=== PATIENT | male | born 1935 | race Caucasian/White ===

== ENCOUNTER → 2020-05-30 08:47 | Outpatient (BNVA) | payer MEDICARE, SELFPAY | PROVIDERS: PCP Family Medicine; Referring Provider Family Medicine; Visit Provider Internal Medicine Cardiovascular Disease | DX: Z76.89 Persons encountering health services in other specified circumstances (principal) ==

== ENCOUNTER 2020-06-28 06:10 | Outpatient (REF) | payer MEDICARE, SELFPAY ==
--- NOTE | 2020-06-28 06:17 | XR_ITS ---
EXAMINATION: CHEST 2 VIEWS CLINICAL INFORMATION: COPD. COMPARISON: 05/25/2019. TECHNIQUE: PA and lateral views of the chest were obtained. FINDINGS: The cardiac silhouette is not enlarged. The mediastinal and hilar contours are unremarkable. There are no pneumothoraces. There is wanting of both posterior costophrenic angles. There are no consolidations. The lungs are hyperinflated. The osseous structures are stable. XR/XR chest 2V IMPRESSION: No consolidations. Lung hyperinflation. Blunting of both posterior costophrenic angles either contact center representative of small pleural effusions and/or pleural thickening.
== END 2020-06-28 06:11 | disposition home or self-care (01) ==
LOC: HO.XRAY 06:10
PROVIDERS: Visit Provider Family Medicine
DX: J44.9 Chronic obstructive pulmonary disease, unspecified (principal); R06.02 Shortness of breath; C43.9 Malignant melanoma of skin, unspecified
CPT/HCPCS: 71046

== ENCOUNTER 2020-10-04 06:17 | Outpatient (REF) | payer MEDICARE, SELFPAY ==
[2020-10-04 06:58] LABS: MANUAL DIFF FLAG NO
[2020-10-04 07:05] LABS: Basophils Percent Auto 0.5 % (0-2); Eosinophils Absolute Auto 0.3 X10*3/uL (0.0-0.4); Hematocrit 34.9 % (42-52); Hemoglobin 11.4 g/dl (14.0-18.0); Imm Gran Abs Auto 0.04 X10*3/uL (0.00-0.03); Imm Gran Pct Auto 0.5 % (0.0-0.4); Lymphocytes Absolute Auto 1.6 X10*3/uL (1.2-4.9); Lymphocytes Percent Auto 18.6 % (20-40); Mean Corpuscular HGB Conc 32.7 g/dl (31.0-36.0); Mean Corpuscular Hemoglobin 31.1 pg (27.0-33.0); Mean Corpuscular Volume 95.1 fL (80-98); Mean Platelet Volume 10.8 fL (9.4-12.4); Monocytes Percent Auto 11.2 % (2-11); Neutrophils Absolute Auto 5.7 X10*3/uL (2.0-8.3); Neutrophils Percent Auto 66.2 % (45-73); Platelet Count 173 X10*3/uL (160-400); Red Blood Count 3.67 X10*6/uL (4.60-5.80); Red Cell Distribution Width 12.3 % (11.0-16.0); White Blood Count 8.6 X10*3/uL (4.8-10.8)
[2020-10-04 07:50] LABS: Alanine Aminotransferase 11 U/L (0-40); Anion Gap 11 (12-20); Blood Urea Nitrogen 33 mg/dL (9-16); Carbon Dioxide 29 mmol/L (22-29); Chloride 104 mmol/L (96-108); Estimated Glomerular Filt Rate 48; Potassium 4.7 mmol/L (3.3-5.1); Sodium 139 mmol/L (135-145)
== END 2020-10-04 06:18 | disposition home or self-care (01) ==
LOC: HO.LAB 06:17
PROVIDERS: Visit Provider Family Medicine
DX: I10 Essential (primary) hypertension (principal); E78.00 Pure hypercholesterolemia, unspecified; D64.9 Anemia, unspecified; Z79.899 Other long term (current) drug therapy
CPT/HCPCS: 36415; 80051; 82550; 82565; 84460; 84520; 85025

== ENCOUNTER 2020-12-19 09:05 | Outpatient (REF) | payer MEDICARE, SELFPAY ==
[2020-12-19 09:33] LABS: MANUAL DIFF FLAG NO
[2020-12-19 09:36] LABS: Basophils Percent Auto 0.5 % (0-2); Eosinophils Absolute Auto 0.3 X10*3/uL (0.0-0.4); Eosinophils Percent Auto 3.3 % (0-4); Hematocrit 36.3 % (42-52); Hemoglobin 11.8 g/dl (14.0-18.0); Imm Gran Abs Auto 0.02 X10*3/uL (0.00-0.03); Imm Gran Pct Auto 0.3 % (0.0-0.4); Lymphocytes Absolute Auto 1.7 X10*3/uL (1.2-4.9); Lymphocytes Percent Auto 21.1 % (20-40); Mean Corpuscular HGB Conc 32.5 g/dl (31.0-36.0); Mean Corpuscular Hemoglobin 30.7 pg (27.0-33.0); Mean Corpuscular Volume 94.5 fL (80-98); Mean Platelet Volume 10.6 fL (9.4-12.4); Monocytes Absolute Auto 0.8 X10*3/uL (0.1-1.2); Monocytes Percent Auto 10.5 % (2-11); Neutrophils Absolute Auto 5.1 X10*3/uL (2.0-8.3); Neutrophils Percent Auto 64.3 % (45-73); Platelet Count 162 X10*3/uL (160-400); Red Blood Count 3.84 X10*6/uL (4.60-5.80); Red Cell Distribution Width 13.3 % (11.0-16.0); White Blood Count 7.9 X10*3/uL (4.8-10.8)
[2020-12-19 09:56] LABS: Iron 65 mcg/dL (45-160); Percent Iron Saturation 23 % (15-50); Total Iron Binding Capacity 277 mcg/dL (228-428); Unsaturated Iron Binding 212 ug/dL
[2020-12-19 10:26] LABS: Ferritin 358 ng/mL (20-250)
[2020-12-19 12:19] LABS: Vitamin B12 528 pg/mL (200-900)
== END 2020-12-19 09:06 | disposition home or self-care (01) ==
LOC: HO.LAB 09:05
PROVIDERS: PCP Family Medicine; Visit Provider Family Medicine
DX: D64.9 Anemia, unspecified (principal)
CPT/HCPCS: 36415; 82607; 82728; 82746; 83540; 85025

== ENCOUNTER 2021-01-26 06:40 | Outpatient (REF) | payer MEDICARE, SELFPAY ==
--- NOTE | ~2021-01-26 | XR_ITS ---
EXAMINATION: XR CHEST CLINICAL INFORMATION: Shortness of breath. COPD. COMPARISON: 06/28/2020 TECHNIQUE: Two views of the chest were obtained. FINDINGS: There is hyperinflation of the lungs. There is blunting of the costophrenic sulci and posterior sulcus which may be related to chronic pleural-parenchymal disease versus minimal effusions. Heart normal size. No evidence of pulmonary edema. There is some scarring noted within the right upper lobe. Degenerative marginal spurring is seen at multiple levels within the thoracic spine. XR/XR chest 2V IMPRESSION: COPD. No acute parenchymal disease. Stable appearance of the chest.
== END 2021-01-26 06:41 | disposition home or self-care (01) ==
LOC: HO.XRAY 06:40
PROVIDERS: Absent Provider Hospitalist; PCP Family Medicine; Visit Provider Family Medicine
DX: J44.9 Chronic obstructive pulmonary disease, unspecified (principal); R06.02 Shortness of breath
CPT/HCPCS: 71046

== ENCOUNTER → 2021-02-14 09:15 | Outpatient (BNVA) | payer MEDICARE, SELFPAY | PROVIDERS: PCP Family Medicine; Visit Provider Hospitalist | DX: J43.2 Centrilobular emphysema (principal); R09.02 Hypoxemia | CPT/HCPCS: 99202 ==

== ENCOUNTER 2021-02-22 12:56 | Outpatient (REF) | payer MEDICARE, SELFPAY ==
--- NOTE | ~2021-02-22 | CT_ITS ---
EXAMINATION: CT CHEST WITHOUT CONTRAST CLINICAL INFORMATION: Abnormal weight loss COMPARISON: Previous chest CT March 2011 previous chest x-rays most recent January 2021 TECHNIQUE: Multidetector volumetric CT imaging of the chest was done. Axial MIP volume rendering provided. Sagittal and coronal reformatted images were obtained. This CT examination was performed using dose optimization techniques as appropriate, variously including the following: *Automated exposure control *Adjustment of mA and/or kV according to patient size (this includes techniques or standardized protocols for targeted exams where dose is matched to indication/reason for exam; i.e. extremities or head) *Use of iterative reconstruction technique DLP: 238 mGy-cm FINDINGS: LUNGS: There is a 1 cm spiculated right upper lobe nodule axial image 20 series 3. There is a more inferior abnormal parenchymal density seen in the central right upper lobe with focal mild bronchiectasis and spicules. This measures 0.7 x 1.6 cm axial image 28 series. There is volume loss to the left upper lobe. There is a new paramediastinal left upper lobe masslike density adjacent to the aortic arch. This measures 3.5 x 5.8 cm axial image 29 series 3. This extends inferior medially in the anterior left upper lobe along the interhemispheric fissure. There is a cavitary left lower lobe nodule adjacent to the diaphragmatic pleural surface measuring 1.7 x 1.8 cm axial image 54 series 3. There is a 3 mm left lower lobe nodule axial image 9 series 3. There is a 6 mm peripheral or subpleural right lower lobe nodule axial image 55 series. There is scarring or subsegmental atelectasis seen in the lingula adjacent to the pleural fissure and the anterior segment of the right upper lobe adjacent to the minor fissure. MEDIASTINUM: There is evidence of atherosclerotic disease. The descending thoracic aorta is tortuous. There is focal dilatation of the descending thoracic aorta measuring maximum 3.5 cm. The ascending thoracic aorta and aortic arch are upper normal in size. The heart does not appear enlarged. There is coronary artery calcification. There is no pericardial effusion. There are small mediastinal lymph nodes. Largest lymph node is an AP window lymph node measuring 5 x 10 mm. PLEURA: There is a small left pleural effusion. AXILLA: No lymphadenopathy. UPPER ABDOMEN: There is ectasia of the upper abdominal aorta measuring 3 x 4 cm in AP and transverse dimension axial image 73 series 2. There are small bilateral renal calcifications questionable for vascular calcifications versus small stones. OSSEOUS STRUCTURES: There is increased thoracic kyphosis. There is an old mild T2 vertebral body compression fracture. There are old left lower rib fractures. CT/CT chest wo con IMPRESSION: 3.5 x 5.8 cm central left upper lobe lesion abutting the aortic arch worrisome for neoplasm. 1 cm spiculated right upper lobe nodule. More inferior 0.7 x 1.6 cm spiculated parenchymal density in the more central right upper lobe. 1.7 x 1.8 cm cavitary nodule along the left diaphragmatic pleural surface. These lesions are suspicious for neoplasm. Follow-up PET/CT scan or tissue sampling should be considered. If patient has symptoms to suggest infection, short-term follow-up chest CT following antibiotic therapy could be considered. Severe atherosclerotic disease. Areas of dilatation of the descending thoracic aorta and upper abdominal aorta.
== END 2021-02-22 12:57 | disposition home or self-care (01) ==
LOC: HO.CT 12:56
PROVIDERS: Visit Provider Hospitalist
DX: J43.2 Centrilobular emphysema (principal); R06.02 Shortness of breath; R63.4 Abnormal weight loss
CPT/HCPCS: 71250

== ENCOUNTER 2021-02-27 09:47 | Outpatient (REF) | payer MEDICARE, SELFPAY | END 2021-02-27 09:48 | disposition home or self-care (01) | LOC: HO.RESP 09:47 | PROVIDERS: Visit Provider Hospitalist | DX: Z13.89 Encounter for screening for other disorder (principal) | CPT/HCPCS: 99212 ==

== ENCOUNTER 2021-02-27 09:49 | Outpatient (REF) | payer MEDICARE, SELFPAY ==
--- NOTE | ~2021-02-27 | US_ITS ---
EXAMINATION: US VENOUS ULTRASOUND WITH DOPPLER LOWER EXTREMITY, LEFT CLINICAL INFORMATION: Swelling COMPARISON: None TECHNIQUE: Ultrasound of the deep veins is performed from the hip to the calf with compression sonography and color and pulse Doppler assessment. Spectral analysis with color-flow imaging is performed. FINDINGS: There is normal venous compression and respiratory variation and augmented flow. The visualized common femoral vein, superficial femoral vein, profunda femoral vein, popliteal vein, and the trifurcation region shows no evidence of deep venous thrombosis. There is no significant popliteal fossa cyst. US/US venous duplex LE LT IMPRESSION: No DVT demonstrated in the left lower extremity.
== END 2021-02-27 09:50 | disposition home or self-care (01) ==
LOC: HO.US 09:49
PROVIDERS: PCP Family Medicine; Visit Provider Hospitalist
DX: R60.0 Localized edema (principal); M79.89 Other specified soft tissue disorders
CPT/HCPCS: 93971; 99212

== ENCOUNTER 2021-03-06 08:57 | Outpatient (REF) | payer MEDICARE, SELFPAY ==
--- NOTE | ~2021-03-06 | PE_ITS ---
EXAMINATION: Fluorine-18 FDG PET/CT Scan CLINICAL INDICATION: Initial treatment management. Pulmonary nodules. PROCEDURE: 63 minutes following the intravenous administration of 16.8 mCi of fluorine 18 FDG, images from the base of the skull to the mid thighs were obtained using a combined PET/CT scanner with CT scan based attenuation correction. No oral contrast was administered. No intravenous contrast was administered. Transverse, coronal, sagittal, and volume reconstruction projections were obtained. The patient's blood glucose as determined by a finger stick, was 95 mg/dl immediately prior to injection. Total CT exam dose-length product 402.25 mGy-cm * These CT images were obtained using dose optimization techniques as appropriate, variously including the following: Automated exposure control * Adjustment of mA and/or kV according to patient size (this includes techniques or standardized protocols for targeted exams where dose is matched to indication/reason for exam; i.e. extremities or head) * Use of iterative reconstruction technique COMPARISON: No previous PET/CT scan is available for comparison. CT scan of the chest dated 02/23/2020 is available for comparison. FINDINGS: (Slice numbers described in this report are numbered superiorly to inferiorly with slice #1 in the head) NECK AND VISUALIZED HEAD: No foci of abnormal FDG activity are noted. The distribution of FDG activity is physiological. There is no cervical lymphadenopathy. THORAX: There is intense abnormal FDG activity associated with a medial pleural-based mass in the left upper lobe, SUVmax 15.8, slice 79/267. The FDG avid portion of this mass measures approximately 4.8 x 3.0 cm in largest transverse dimensions and 4.2 cm cephalocaudad. On the corresponding CT images there are spiculations including abutting the anterior pleura of the left upper lobe which extend slightly beyond the FDG avid component. There is a spiculated right upper lobe pulmonary nodule that shows mild FDG activity, SUV Max 6.3, slice 66/267 and measuring 1.2 x 0.9 cm in largest transverse dimensions. A third FDG avid focus is present posterolaterally in the left lower lobe showing SUV Max 3.9, slice 112/267 and measuring approximately 2.0 x 1.1 cm in largest transverse dimensions. No additional foci of abnormal FDG activity are present in the chest. There is an additional 0.5 cm pleural-based nodule posterolaterally in the right lower lobe corresponding to a 0.6 cm nodule at this site on the recent 02/22/[address] scan. Also visualized on that study was a 0.7 x 1.6 cm central right upper lobe opacity associated with some adjacent bronchiectasis, and on the CT images of the current study there is an irregular opacity that measures approximately 1.4 x 0.8 cm in this region and which shows no associated abnormal FDG activity. An additional 0.3 cm left lower lobe nodule visualized on 02/22/2021 is not apparent on these nondiagnostic CT images. No additional pulmonary nodules are visualized. There is no mediastinal, supraclavicular, or axillary lymphadenopathy. Trace left-sided pleural fluid is present but there is no right-sided pleural fluid, pericardial fluid, or pneumothorax. ABDOMEN AND PELVIS: No foci of abnormal FDG activity are present in the abdomen or pelvis. There is mild FDG activity throughout the gastrointestinal tract without a suspicious focal component. There is diverticulosis without evidence of diverticulitis. The hollow viscera are otherwise unremarkable. The liver, gallbladder, spleen comment kidneys, adrenal glands, and pancreas are unremarkable. There is no retroperitoneal, mesenteric, pelvic or inguinal lymphadenopathy. The prostate gland is enlarged measuring 6.1 cm in largest transverse dimension. The pelvic organs are otherwise unremarkable. MUSCULOSKELETAL: There are no foci of abnormal FDG activity present in the osseous structures. There are degenerative changes in the spine but no suspicious sclerotic or lytic lesions are visualized. A mild well compensated S-shaped thoracolumbar scoliosis is present with lumbar convexity to the right. There are compression deformities in the superior endplates of T9 and T10 as well as compression deformity in the T2 vertebral body WITH no associated abnormal FDG activity indicating these are all old. There are no suspicious sclerotic or lytic lesions visualized. VASCULAR: Diffuse vascular calcifications including dense coronary calcifications are noted. There is ectasia of the infrarenal abdominal aorta measuring 2.4 cm in largest AP diameter. PET/PET CT fusion skull to thigh IMPRESSION: 1. An intensely FDG avid medial pleural-based left upper lobe mass is present as described above and this is most likely malignant. The finding is most consistent with a primary pulmonary malignancy. 2. FDG avid right upper lobe and left lower lobe pulmonary nodules are present and these are also likely malignant. While these may represent metastases from the previously described medial left upper lobe mass, these are significantly less intensely FDG avid and could represent synchronous primary malignant lesions. 3. No additional abnormalities suspicious for other metastatic or malignant lesions are visualized. 4. Diffuse vascular calcifications including coronary are noted.
== END 2021-03-06 08:58 | disposition home or self-care (01) ==
LOC: HO.PET 08:57
PROVIDERS: PCP Family Medicine; Visit Provider Hospitalist
DX: Z13.89 Encounter for screening for other disorder (principal)

== ENCOUNTER → 2021-03-07 09:25 | Outpatient (BNVA) | payer MEDICARE, SELFPAY | PROVIDERS: PCP Family Medicine; Visit Provider Hospitalist | CPT/HCPCS: Q3014 ==

== ENCOUNTER 2021-03-17 11:09 | Observation (INO) | payer MEDICARE, SELFPAY ==
[2021-03-17] VITALS (11 sets, daily range): BP systolic 116–151; BP diastolic 56–76; PULSE 59–89; RESP 10–18; TEMP 36.4–36.9; O2SAT 94–97; BMI 23.4; BMI 20.5
--- NOTE | ~2021-03-17 | XR_ITS ---
EXAMINATION: XR CHEST CLINICAL INFORMATION: Shortness of breath COMPARISON: Portable chest radiograph from 03/17/2021. CXR from 01/26/2021. TECHNIQUE: 2 views of the chest were obtained. FINDINGS: No acute findings within the emphysematous lungs. Again noted is the right apical nodule projecting over the right anterior first rib, the infiltrative mass in the medial left upper lobe, and the elevated left diaphragm. No pneumothorax or pleural effusion. Multilevel osteophyte formation of the spine. XR/XR chest 2V IMPRESSION: No evidence of pneumothorax or other acute pathology compared to chest radiograph from 03/07/2021 at 11:20 AM.
--- NOTE | ~2021-03-17 | XR_ITS ---
EXAMINATION: XR CHEST CLINICAL INFORMATION: Chest pain COMPARISON: CXR from 01/26/2021 TECHNIQUE: Frontal view of the chest was obtained. FINDINGS: An irregular left upper lobe mass extends from the region of the hilum superiorly, directed toward the apex. There is associated volume loss of the left lung with elevated left diaphragm. A right upper lobe nodule projects over the right anterior first rib. A few linear opacities of atelectasis or scarring are present at the lung bases. There is an equivocal finding of a small left apical pneumothorax. The finding in question is probably artifactual. A skinfold or a line produced by overlying clothing might mimic the appearance of a pneumothorax. Recommend short interval CXR follow-up to ensure absence of any developing pneumothorax. Cardiac silhouette is normal size. The aorta is calcified. The visualized bones are intact. XR/XR chest 1V IMPRESSION: * Left upper lobe mass and right upper lobe nodule. * There is volume loss of the left lung; the left diaphragm is elevated. * No pulmonary edema or pleural effusion. * There is an equivocal/doubtful finding of a left apical pneumothorax. However, follow up recommended. The test result was discussed with Dr. Oneil at 12:18 PM on 03/17/2021 and it was ascertained that the content and the potential importance of the findings was understood at the time of the direct communication.
--- NOTE | ~2021-03-17 | CT_ITS ---
EXAMINATION: CT HEAD WITHOUT CONTRAST CLINICAL INFORMATION: Headache. COMPARISON: None TECHNIQUE: Contiguous axial imaging was performed from the skull base to vertex without intravenous administration of contrast. This CT examination was performed using dose optimization techniques as appropriate, variously including the following: *Automated exposure control *Adjustment of mA and/or kV according to patient size (this includes techniques or standardized protocols for targeted exams where dose is matched to indication/reason for exam; i.e. extremities or head) *Use of iterative reconstruction technique DLP: 729 mGy-cm FINDINGS: There is no evidence of acute intracranial hemorrhage or territorial infarction. No abnormal mass effect or midline shift is seen. Reyes to white matter differentiation is well preserved. No extra-axial fluid collections are identified. The lateral ventricles are symmetrical but enlarged. Minimal prominence of cortical sulci is noted. The osseous structures and soft tissues are normal. There is complete opacification of left sphenoid sinus. Rest of the sinuses and mastoid air cells are well aerated and clear. CT/CT head/brain wo con IMPRESSION: No acute intracranial process seen. Complete opacification of left sphenoid sinus consistent with chronic inflammatory changes.
--- NOTE | 2021-03-17 11:27 | ECG_ITS ---
Test Reason : NEAR SYNCOPE Blood Pressure : / mmHG Vent. Rate : 061 BPM Atrial Rate : 061 BPM P-R Int : 200 ms QRS Dur : 094 ms QT Int : 420 ms P-R-T Axes : 097 041 049 degrees QTc Int : 422 ms Normal sinus rhythm Normal ECG When compared with ECG of 25-MAY-2019 22:12, No significant change was found Referred By: Judd Oneil Electronically Signed By:LINDSEY MARIN
--- NOTE | 2021-03-17 11:29 | ED_ITS ---
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 THE PATIENT IS NOW AWAKE AND ALERT HE WAS TRANSPORTED HERE BY EMS HE DENIES ANY CHEST PAIN SHORTNESS OF BREATH MD complaint: loss of consciousness Onset (ago): hour(s) (1 H) Prodromal symptoms: lightheaded Related Data Home Medications Medication Instructions Recorded Confirmed aspirin 81 mg tablet,delayed 81 mg PO DAILY 02/14/21 03/08/21 release atorvastatin 20 mg tablet 20 mg PO DAILY 02/14/21 03/08/21 celecoxib 200 mg capsule 200 mg PO DAILY 02/14/21 03/08/21 coenzyme Q10 10 mg capsule 10 mg PO TID 02/14/21 03/08/21 fluticasone furoate 200 1 ea INHALATION DAILY 02/14/21 03/08/21 mcg-vilanterol 25 mcg/dose inhalation powder furosemide 20 mg tablet 20 mg PO DAILY 02/14/21 03/08/21 glucosamine 750 mg-chondroit 100 tab PO 02/14/21 03/08/21 mg-msm-D3 25 nhf-bsjt-syh bor tablet latanoprost 0.005 % eye drops 1 drp OPHTHALMIC (EYE) DAILY 02/14/21 03/08/21 lisinopril 20 mg tablet 20 mg PO DAILY 02/14/21 03/08/21 multivitamin 1 tab PO DAILY 02/14/21 03/08/21 turmeric 400 mg capsule mg PO 02/14/21 03/08/21 umeclidinium 62.5 mcg/actuation 1 inh INHALATION DAILY 02/14/21 03/08/21 blister powder for inhalation Previous Rx's Medication Instructions Recorded metoprolol succinate 25 mg 25 mg PO DAILY 90 Days #90 tab 07/26/20 tablet,extended release 24 hr (Toprol XL) amlodipine 5 mg tablet (Norvasc) 5 mg PO DAILY #90 tab 01/17/21 Allergies Allergy/AdvReac Type Severity Reaction Status Date / Time No Known Allergies Allergy Verified 03/08/21 08:16 [No Known Allergies*] shellfish Allergy Severe gout Uncoded 03/08/21 08:16 Review of Systems Review of Systems: Yes all other systems are reviewed and are negative Constitutional: Constitutional: Reports no additional constitutional complaints, Denies frequent falls and Reports headache(s) ENT: Reports system reviewed and no additional complaints, except as documented and Reports headache(s) Cardiovascular: Cardiovascular: Reports no additional cardiovascular complaints Respiratory: Respiratory: Reports no additional respiratory complaints Gastrointestinal: Gastrointestinal: Reports no additional gastrointestinal complaints Neurologic: Denies frequent falls, Reports headache(s) and Denies focal weakness Psychiatric: Psychiatric: Reports no additional psychiatric complaints [facility] Past Medical History Medical History COPD (chronic obstructive pulmonary disease) Hypoxia Limb swelling Lung mass Melanoma Weight loss Family History Family History Other HTN (hypertension) Social History Social History Alcohol intake: never Patient Tobacco Use Status: Former Tobacco user Tobacco use type: Cigarette Years Smoked: 10 years Use of substances other than those prescribed or required for medical reasons: No Advance Directives: No Advance Directives Information Provided: No Physical Exam Vital Signs: Vital Signs: Last Vital Signs Temp 97.9 F 03/17/21 11:14 Pulse 59 03/17/21 12:20 Resp 12 03/17/21 12:20 BP 119/56 L 03/17/21 12:20 Pulse Ox 97 03/17/21 12:20 Body Mass Index 23.4 Const: General: cooperative Nutritional Appearance: average body habitus Limitations: no limitations HENMT: Head: Yes normal to inspection and Yes normocephalic Ears: hearing grossly normal bilaterally and external ears normal General nose exam: Normal external nose present Face and sinus: Yes normal facial exam Mouth: Normal oral and palatal mucosa present Neck: Neck: Yes full ROM Thyroid: Thyroid normal Chest: Chest palpation & inspection: normal inspection of the chest Resp: Effort & Inspection: normal respiratory effort and able to speak in complete sentences Auscultation: clear to auscultation bilaterally Cardio: Jugular venous distension: no JVD Palpation: normal PMI Rate: regular rate Rhythm: regular rhythm GI: Inspection: Yes normal to inspection Palpation (GI): Soft to palpation, nontender and no guarding Auscultation: normal bowel sounds : General: Yes no CVA tenderness Back/Spine/Pelvis: Back: no CVA tenderness Cervical Spine: normal cervical lordosis and cervical ROM normal Course Reevaluation(s) Reevaluation #1: REMAIN HEMODYNAMICALLY STABLE TROPONIN IS NEGATIVE EKG NO ISCHEMIA CT SCAN OF THE HEAD NEGATIVE, I THINK IS VERY REASONABLE TO ADMIT THE PATIENT FOR OBSERVATION IN TELEMETRY TO RULE OUT ARRHYTHMIA I DISCUSSED WITH HIS AND FAMILY, I SPOKE WITH HOSPITALIST PT ACCEPTED Discharge Plan Discharge Clinical Impression: Syncope Patient Disposition: Admitted As Inpatient
[2021-03-17 11:39] LABS: MANUAL DIFF FLAG NO
[2021-03-17 11:42] LABS: Basophils Percent Auto 0.5 % (0-2); Eosinophils Absolute Auto 0.1 X10*3/uL (0.0-0.4); Eosinophils Percent Auto 1.6 % (0-4); Hematocrit 32.8 % (42-52); Hemoglobin 10.8 g/dl (14.0-18.0); Imm Gran Abs Auto 0.02 X10*3/uL (0.00-0.03); Imm Gran Pct Auto 0.3 % (0.0-0.4); Lymphocytes Absolute Auto 1.1 X10*3/uL (1.2-4.9); Lymphocytes Percent Auto 14.8 % (20-40); Mean Corpuscular HGB Conc 32.9 g/dl (31.0-36.0); Mean Corpuscular Hemoglobin 30.7 pg (27.0-33.0); Mean Corpuscular Volume 93.2 fL (80-98); Mean Platelet Volume 10.2 fL (9.4-12.4); Monocytes Absolute Auto 0.9 X10*3/uL (0.1-1.2); Monocytes Percent Auto 11.7 % (2-11); Neutrophils Absolute Auto 5.4 X10*3/uL (2.0-8.3); Neutrophils Percent Auto 71.1 % (45-73); Platelet Count 142 X10*3/uL (160-400); Red Blood Count 3.52 X10*6/uL (4.60-5.80); Red Cell Distribution Width 13.1 % (11.0-16.0); White Blood Count 7.6 X10*3/uL (4.8-10.8)
[2021-03-17 11:49] LABS: Prothrombin Time 11.8 SEC (9.9-13.0)
[2021-03-17 12:04] LABS: Alanine Aminotransferase 16 U/L (0-40); Alkaline Phosphatase 88 U/L (39-117); Anion Gap 13 (12-20); Aspartate Amino Transferase 25 U/L (5-37); Bilirubin Total 0.6 mg/dL (0.0-1.0); Blood Urea Nitrogen 22 mg/dL (9-16); Calcium 9.3 mg/dL (8.4-10.2); Carbon Dioxide 26 mmol/L (22-29); Chloride 98 mmol/L (96-108); Creatinine Clr Calc Pharmacy 39.4; Estimated Glomerular Filt Rate 49; Glucose Random 94 mg/dL (60-115); Potassium 4.2 mmol/L (3.3-5.1); Sodium 133 mmol/L (135-145)
[2021-03-17 12:07] LABS: Troponin-I High Sensitivity < 3.5 ng/L (<3.5-35.0)
--- NOTE | 2021-03-17 14:43 | P.HPHOSP_ITS ---
History of Present Illness Date of Service: 03/17/21 Chief Complaint: syncope This is an 85-year-old male who was brought to the hospital after an episode of unresponsiveness. Patient was in his usual state of health while he mowed the lawn this afternoon. He reports feeling fine after finishing the lawn work. He was not using his supplemental oxygen. He and his were sitting down outside for approximately 15 minutes after he finished mowing the lawn when his noticed that he was not responding. The patient states he began feeling hot and sweaty and that everything became foggy. His went over to him and he slumped over onto her. She was unable to lower him to the floor. She did not notice any seizure-like activity. was able to call 911 from her cell phone. They responded within 5 minutes. On EMS arrival patient was starting to become more alert. On arrival to the emergency department he was back to his baseline. He denies any chest pain, palpitations. He does report shortness of breath with exertion which is somewhat chronic for him. He is currently being worked up for a lung mass and pulmonary nodules concerning for malignancy as an outpatient and has biopsy scheduled for next week. In the ED, his EKG did not show any arrhythmia. Highly sensitive troponin was <3.5. Review of Systems Review of Systems: Yes all other systems are reviewed and are negative Constitutional: Constitutional: Denies chills and Denies fever(s) Cardiovascular: Cardiovascular: Denies chest pain Respiratory: Respiratory: Denies cough Gastrointestinal: Gastrointestinal: Denies abdominal pain [facility] Medical History (Updated 03/17/21 @ 14:52 by CAYDEN Thomas) CAD (coronary artery disease) COPD (chronic obstructive pulmonary disease) HTN (hypertension) Hypoxia Limb swelling Lung mass Melanoma Weight loss Functional capacity: independent ambulation Family History Other HTN (hypertension) Social History Alcohol intake: never Patient Tobacco Use Status: Former Tobacco user Tobacco use type: Cigarette Years Smoked: 10 years Use of substances other than those prescribed or required for medical reasons: No Advance Directives: No Advance Directives Information Provided: No Meds Allergies Allergy/AdvReac Type Severity Reaction Status Date / Time No Known Allergies Allergy Verified 03/08/21 08:16 [No Known Allergies*] shellfish Allergy Severe gout Uncoded 03/08/21 08:16 Home Medications Medication Instructions Recorded Confirmed Last Taken Type atorvastatin 20 mg tablet 20 mg PO DAILY 02/14/21 03/17/21 Unknown History celecoxib 200 mg capsule 200 mg PO DAILY 02/14/21 03/17/21 Unknown History coenzyme Q10 10 mg capsule 10 mg PO DAILY 02/14/21 03/17/21 Unknown History fluticasone furoate 200 1 ea INHALATION DAILY 02/14/21 03/17/21 Unknown History mcg-vilanterol 25 mcg/dose inhalation powder furosemide 20 mg tablet 20 mg PO DAILY 02/14/21 03/17/21 Unknown History glucosamine 750 mg-chondroit 100 tab PO 02/14/21 03/08/21 Unknown History mg-msm-D3 25 bkk-yrha-tac bor tablet latanoprost 0.005 % eye drops 1 drp OPHTHALMIC (EYE) DAILY 02/14/21 03/17/21 Unknown History lisinopril 20 mg tablet 20 mg PO DAILY 02/14/21 03/17/21 Unknown History multivitamin 1 tab PO DAILY 02/14/21 03/17/21 Unknown History turmeric 400 mg capsule mg PO 02/14/21 03/08/21 Unknown History umeclidinium 62.5 mcg/actuation 1 inh INHALATION DAILY 02/14/21 03/17/21 Unknown History blister powder for inhalation Physical Exam Vital Signs and Narrative: Vital Signs: Last Vital Signs Temp 98.0 F 03/17/21 14:03 Pulse 69 03/17/21 14:03 Resp 15 03/17/21 14:03 BP 125/74 03/17/21 14:03 Pulse Ox 97 03/17/21 14:03 Body Mass Index 23.4 Const: Nutritional Appearance: well nourished Orientation/consciousness: patient oriented x3 HENMT: Head: Yes normocephalic and Yes atraumatic Eyes: Sclerae: sclerae normal Chest: Chest palpation & inspection: normal inspection of the chest Resp: Effort & Inspection: normal respiratory effort and no respiratory distress Auscultation: clear to auscultation bilaterally Cardio: Rate: regular rate Rhythm: regular rhythm GI: Palpation (GI): Soft to palpation and nontender Neuro: General: patient oriented x3 Cranial nerves: Yes CN's II-XII intact bilaterally and Yes Bilaterally intact EOM present Extrem: Other: b/l pitting edema Results Labs CBC and Chem 7: 03/17/21 11:35 03/17/21 11:35 Labs: Laboratory Results - last 24 hr 03/17/21 03/17/21 03/17/21 11:35 11:35 11:35 MCV 93.2 MCH 30.7 MCHC 32.9 RDW 13.1 Plt Count 142 L MPV 10.2 Immature Gran % (Auto) 0.3 Neut % (Auto) 71.1 Lymph % (Auto) 14.8 L [place] % (Auto) 11.7 H Eos % (Auto) 1.6 Baso % (Auto) 0.5 Lymph # (Auto) 1.1 L [place] # (Auto) 0.9 Eos # (Auto) 0.1 Baso # (Auto) 0.0 Abs Immat Gran (auto) 0.02 Absolute Neuts (auto) 5.4 Absolute Nucleated RBC 0.000 Nucleated RBC % (auto) 0.0 PT 11.8 INR 1.0 Anion Gap 13 Estim Creat Clear Calc 39.4 Estimated GFR 49 Random Glucose 94 Calcium 9.3 Total Bilirubin 0.6 AST 25 ALT 16 Alkaline Phosphatase 88 Troponin I High Sens Total Protein 6.0 L Albumin 4.0 03/17/21 11:35 MCV MCH MCHC RDW Plt Count MPV Immature Gran % (Auto) Neut % (Auto) Lymph % (Auto) [place] % (Auto) Eos % (Auto) Baso % (Auto) Lymph # (Auto) [place] # (Auto) Eos # (Auto) Baso # (Auto) Abs Immat Gran (auto) Absolute Neuts (auto) Absolute Nucleated RBC Nucleated RBC % (auto) PT INR Anion Gap Estim Creat Clear Calc Estimated GFR Random Glucose Calcium Total Bilirubin AST ALT Alkaline Phosphatase Troponin I High Sens < 3.5 Total Protein Albumin Imaging Radiologist's Impressions: Impressions Chest X-Ray 03/17/21 11:27 IMPRESSION: * Left upper lobe mass and right upper lobe nodule. * There is volume loss of the left lung; the left diaphragm is elevated. * No pulmonary edema or pleural effusion. * There is an equivocal/doubtful finding of a left apical pneumothorax. However, follow up recommended. The test result was discussed with Dr. Oneil at 12:18 PM on 03/17/2021 and it was ascertained that the content and the potential importance of the findings was understood at the time of the direct communication. Head CT 03/17/21 11:28 IMPRESSION: No acute intracranial process seen. Complete opacification of left sphenoid sinus consistent with chronic inflammatory changes. Chest X-Ray 03/17/21 12:18 IMPRESSION: No evidence of pneumothorax or other acute pathology compared to chest radiograph from 03/07/2021 at 11:20 AM. Assessment and Plan (1) Syncope: Status: Acute This is an 85-year-old male with history of coronary artery disease, COPD, hypertension, recently diagnosed lung mass likely malignant who presented to the emergency department after syncopal event/episode of unresponsiveness Syncope Likely vasovagal troponin negative, EKG without acute ischemic changes, brain CT negative. echo from 01/2019 with normal EF, no significant valvular disease -check orthostatic blood pressure -tele monitoring Lung mass Likely malignant -outpatient biopsy/management CAD No chest pain. Troponin negative -continue statin, beta-jayden HTN Blood pressure controlled -continue Norvasc, lisinopril, metoprolol Leg edema -continue Lasix COPD No acute exacerbation -continue Breo DVT prophylaxis-Lovenox Code status-full code Attending- Dr. Gardner Quality Stroke Does the patient have a stroke diagnosis?: No VTE Prior VTE?: No VTE Risk Level:: Medical - moderate - high VTE Device Contraindication: Treatment Not Indicated VTE Drug Contraindication: N/A - Med Ordered
--- NOTE | 2021-03-17 14:50 | P.EN_ITS ---
Event Note Date of Service: 03/17/21 Event Note: Patient seen examined case discussed with APC 85-year-old gentleman recently diagnosed to have lung CA presented to [facility] after an episode of syncope, patient workup in ER is negative so far, EKG showed no acute arrhythmia, no ischemia head CT unremarkable blood sugars stable, normal electrolytes On examination patient awake alert Neuro exam benign Recent echo showed normal systolic and diastolic function Assessment and plan Syncope likely vasovagal agree with above treatment plan as per APC.
--- NOTE | 2021-03-17 15:29 | PC.NURSE ---
pt eating lunch, resting in bed comfortably with family at bedside. pt aware of plan to be admit to the hospital.
[2021-03-17] MEDS: 0.9 % Sodium Chloride Flush 3 ML SYRINGE IVFLUSH (17:02)
--- NOTE | 2021-03-17 17:19 | PC.NURSE ---
pt presented with Lovenox - he and his family are unsure if they should take the Lovenox as his CA Biopsy is scheduled for 03/19/2021 in the morning and he was told not to take his daily Aspirin. Teena Pereira notified and this RN asked if he should take the Lovenox and was told yes. pt family continue to be worried the Biopsy will have to be rescheduled, they wanted the radiologist's input on the matter. Teena Pereira TC and notified of above.
[2021-03-18] VITALS: BP 121/58; PULSE 59; RESP 16; RESP 18; TEMP 36.6; O2SAT 96
[2021-03-18 03:42] VITALS: BP 108/57; PULSE 64; RESP 18; TEMP 36.6; O2SAT 95
[2021-03-18 06:55] VITALS: BP 124/59; PULSE 66; RESP 19; TEMP 36.1; O2SAT 94
[2021-03-18 08:00] VITALS: RESP 16
[2021-03-18] MEDS: Multivitamin TABLET 1 TAB PO (09:19)
[2021-03-18] MEDS: Furosemide 20 MG TABLET PO (09:20)
[2021-03-18] MEDS: Metoprolol Succinate ER 25 MG TAB.ER.24H PO (09:20)
[2021-03-18] MEDS: 0.9 % Sodium Chloride Flush 3 ML SYRINGE IVFLUSH (09:20)
--- NOTE | 2021-03-18 10:18 | PM.DS ---
DS: Providers Provider Date of Service: 03/18/21 Date of admission: 03/17/21 14:39 Primary care physician: Omari Salas MD DS: Diagnosis Discharge Diagnosis (1) Syncope: Status: Acute (2) HTN (hypertension): Status: Acute DS: Medications Discharge Medications Home Medications: Home Medications Medication Instructions Recorded Confirmed atorvastatin 20 mg tablet 20 mg PO DAILY 02/14/21 03/17/21 celecoxib 200 mg capsule 200 mg PO DAILY 02/14/21 03/17/21 coenzyme Q10 10 mg capsule 10 mg PO DAILY 02/14/21 03/17/21 fluticasone furoate 200 1 ea INHALATION DAILY 02/14/21 03/17/21 mcg-vilanterol 25 mcg/dose inhalation powder furosemide 20 mg tablet 20 mg PO DAILY 02/14/21 03/17/21 glucosamine 750 mg-chondroit 100 1 tab PO 02/14/21 03/08/21 mg-msm-D3 25 icx-wvwh-blw bor tablet (Move Free Plus MSM-Vit D3) latanoprost 0.005 % eye drops 1 drp OPHTHALMIC (EYE) DAILY 02/14/21 03/17/21 lisinopril 20 mg tablet 20 mg PO DAILY 02/14/21 03/17/21 multivitamin 1 tab PO DAILY 02/14/21 03/17/21 turmeric 400 mg capsule mg PO 02/14/21 03/08/21 umeclidinium 62.5 mcg/actuation 1 inh INHALATION DAILY 02/14/21 03/17/21 blister powder for inhalation Previous Rx's Medication Instructions Recorded metoprolol succinate 25 mg 25 mg PO DAILY 90 Days #90 tab 07/26/20 tablet,extended release 24 hr (Toprol XL) DS: Summary Hospital Course Hospital Course: From H&P on day of admission This is an 85-year-old male who was brought to the hospital after an episode of unresponsiveness.? Patient was in his usual state of health while he mowed the lawn this afternoon.? He reports feeling fine after finishing the lawn work.? He was not using his supplemental oxygen.? He and his were sitting down outside for approximately 15 minutes after he finished mowing the lawn when his noticed that he was not responding.? The patient states he began feeling hot and sweaty and that everything became foggy.? His went over to him and he slumped over onto her.? She was unable to lower him to the floor.? She did not notice any seizure-like activity.? was able to call 911 from her cell phone.? They responded within 5 minutes.? On EMS arrival patient was starting to become more alert.? On arrival to the emergency department he was back to his baseline.? He denies any chest pain, palpitations.? He does report shortness of breath with exertion which is somewhat chronic for him.? He is currently being worked up for a lung mass and pulmonary nodules concerning for malignancy as an outpatient and has biopsy scheduled for next week. In the ED, his EKG did not show any arrhythmia.? Highly sensitive troponin was <3.5. Syncope. The patient was admitted after a episode of syncope following exertion. Likely vasovagal. Orthostatic blood pressures were negative. EKG and troponin were negative. Brain ct unremarkable. ECHO from 01/2019 with no valvular pathology. Patient was observed overnight on telemetry. He had no overnight events noted on telemetry. He will be discharged home in stable condition. He is encouraged to use his supplemental oxygen with exertion as prescribed. Hypertension. Blood pressure was the on the softer side. His Norvasc is being discontinued. He can follow up with PCP as outpatient for close blood pressure monitoring. Time Spent with Patient Time attestation: Total time spent providing and/or coordinating discharge services: Discharge coordination time: Greater than 30 minutes Quality: Stroke Does the patient have a stroke diagnosis?: No Physical Exam Vital Signs: Vital Signs: Last Vital Signs Temp 97 F 03/18/21 06:55 Pulse 66 03/18/21 06:55 Resp 16 03/18/21 08:00 BP 124/59 L 03/18/21 06:55 Pulse Ox 94 03/18/21 06:55 Body Mass Index 20.5 Const: Nutritional Appearance: well nourished Orientation/consciousness: patient oriented x3 HENMT: Head: Yes normocephalic and Yes atraumatic Eyes: Sclerae: sclerae normal Chest: Chest palpation & inspection: normal inspection of the chest Resp: Effort & Inspection: normal respiratory effort and no respiratory distress Auscultation: clear to auscultation bilaterally Cardio: Rate: regular rate Rhythm: regular rhythm GI: Palpation (GI): Soft to palpation and nontender Neuro: General: patient oriented x3 Cranial nerves: Yes CN's II-XII intact bilaterally and Yes Bilaterally intact EOM present Extrem: Other: b/l edema DS: Data Data Completed and Pending Labs on day of discharge: Laboratory Results - last 24 hr 03/17/21 03/17/21 03/17/21 11:35 11:35 11:35 WBC 7.6 RBC 3.52 L Hgb 10.8 L Hct 32.8 L MCV 93.2 MCH 30.7 MCHC 32.9 RDW 13.1 Plt Count 142 L MPV 10.2 Immature Gran % (Auto) 0.3 Neut % (Auto) 71.1 Lymph % (Auto) 14.8 L [place] % (Auto) 11.7 H Eos % (Auto) 1.6 Baso % (Auto) 0.5 Lymph # (Auto) 1.1 L [place] # (Auto) 0.9 Eos # (Auto) 0.1 Baso # (Auto) 0.0 Abs Immat Gran (auto) 0.02 Absolute Neuts (auto) 5.4 Absolute Nucleated RBC 0.000 Nucleated RBC % (auto) 0.0 PT 11.8 INR 1.0 Sodium 133 L Potassium 4.2 Chloride 98 Carbon Dioxide 26 Anion Gap 13 BUN 22 H Creatinine 1.37 Estim Creat Clear Calc 39.4 Estimated GFR 49 Random Glucose 94 Calcium 9.3 Total Bilirubin 0.6 AST 25 ALT 16 Alkaline Phosphatase 88 Troponin I High Sens Total Protein 6.0 L Albumin 4.0 03/17/21 11:35 WBC RBC Hgb Hct MCV MCH MCHC RDW Plt Count MPV Immature Gran % (Auto) Neut % (Auto) Lymph % (Auto) [place] % (Auto) Eos % (Auto) Baso % (Auto) Lymph # (Auto) [place] # (Auto) Eos # (Auto) Baso # (Auto) Abs Immat Gran (auto) Absolute Neuts (auto) Absolute Nucleated RBC Nucleated RBC % (auto) PT INR Sodium Potassium Chloride Carbon Dioxide Anion Gap BUN Creatinine Estim Creat Clear Calc Estimated GFR Random Glucose Calcium Total Bilirubin AST ALT Alkaline Phosphatase Troponin I High Sens < 3.5 Total Protein Albumin Discharge Plan Discharge Patient Disposition: Home, Self-Care Discharge Diagnosis: syncope Referrals: Omari Salas MD [Primary Care Provider] - 1 Week Discharge Medications: Continued metoprolol succinate [Toprol XL] 25 mg tablet extended release 24 hr 25 mg PO DAILY 90 Days Qty: 90 RF: 3 furosemide 20 mg tablet 20 mg PO DAILY RF: 0 lisinopril 20 mg tablet 20 mg PO DAILY RF: 0 atorvastatin 20 mg tablet 20 mg PO DAILY RF: 0 celecoxib 200 mg capsule 200 mg PO DAILY RF: 0 umeclidinium 62.5 mcg/actuation blister with device 1 inh inhalation DAILY RF: 0 fluticasone furoate-vilanterol 200-25 mcg/dose blister with device 1 ea inhalation DAILY RF: 0 latanoprost 0.005 % drops 1 drp ophthalmic (eye) DAILY RF: 0 multivitamin Tablet 1 tab PO DAILY RF: 0 coenzyme Q10 10 mg capsule 10 mg PO DAILY RF: 0 Move Free Plus MSM-Vit D3 750 mg-100 mg- 25 mcg tablet 1 tab PO RF: 0 turmeric 400 mg capsule PO RF: 0 Discontinued amlodipine [Norvasc] 5 mg tablet 5 mg PO DAILY Qty: 90 RF: 1 Discharge Orders: Discharge Order (Routine); Ordered 03/18/21 Ordered By: Teena Pereira Activity on Discharge: As tolerated Stand Alone Forms: Patient Portal Discharge page Care Plan Goals: see below Health Concerns: syncope HTN Plan of Treatment: syncope. likely vasovagal blood pressure on lower side - will stop Norvasc Assessment: see discharge summary
[2021-03-18 11:03] VITALS: BP 127/56; PULSE 20; RESP 18; TEMP 36; O2SAT 96
== END 2021-03-18 12:12 | disposition home or self-care (01) ==
LOC: HO.ED 13:49 → HO.EDOVER 15:14 → HO.IMC 17:39
PROVIDERS: Admitting Provider Physician Assistant Medical; Emergency Provider Emergency Medicine; PCP Family Medicine; Visit Provider Hospitalist
DX: R55 Syncope and collapse (principal); I10 Essential (primary) hypertension; R00.1 Bradycardia, unspecified; R51.9 Headache, unspecified; I25.10 Atherosclerotic heart disease of native coronary artery without angina pectoris; J44.9 Chronic obstructive pulmonary disease, unspecified; R09.02 Hypoxemia; R91.8 Other nonspecific abnormal finding of lung field; Z87.891 Personal history of nicotine dependence; Z95.5 Presence of coronary angioplasty implant and graft; Z79.899 Other long term (current) drug therapy
CPT/HCPCS: 36415; 70450; 71045; 71046; 80053; 84484; 85025; 85610; 93005; 99219; 99285

== ENCOUNTER 2021-03-19 10:52 | Day surgery (SDC) | payer MEDICARE, SELFPAY ==
[2021-03-19] VITALS (7 sets, daily range): BP systolic 113–137; BP diastolic 55–66; PULSE 66–73; RESP 16–18; TEMP 36.8–37.1; O2SAT 95–97; BMI 20.7
--- NOTE | ~2021-03-19 | XR_ITS ---
EXAMINATION: XR CHEST CLINICAL INFORMATION: Post lung biopsy COMPARISON: Previous chest x-ray most recent 03/17/2021 TECHNIQUE: Frontal view of the chest was obtained. FINDINGS: The cardiac and mediastinal contours are stable. There is elevation of the left hemidiaphragm that is unchanged. Bilateral upper lobe nodules/masses are unchanged. There is subsegmental atelectasis at the left lung base. There is no pleural effusion. There are degenerative changes of the spine. XR/XR chest 1V IMPRESSION: No pneumothorax post left lung biopsy.
--- NOTE | ~2021-03-19 | CT_ITS ---
PROCEDURE: CT-GUIDED ASPIRATION, FINE NEEDLE, WITH IMAGE GUIDANCE CLINICAL INFORMATION: Left upper lobe lung biopsy. COMPARISON: Previous chest CT 02/22/2021 and PET/CT 03/06/2021. TECHNIQUE: Procedure and risks and benefits including bleeding, infection and pneumothorax were discussed with the patient and informed consent was obtained. The patient was positioned in the supine position. Axial images through the upper chest were performed. The left upper anterior chest was prepped and draped in the usual sterile fashion. The skin and soft tissues were anesthetized with 1% lidocaine plain. Using CT guidance and a 22-gauge spinal needle, access to the left upper lobe mass was obtained. Two separate 22-gauge FNA specimens were obtained. There is no complication. The patient received Versed 1 mg and fentanyl 50 mcg intravenously during the procedure. Total sedation time was [address] examination was performed using dose optimization techniques as appropriate, variously including the following: *Automated exposure control *Adjustment of mA and/or kV according to patient size (this includes techniques or standardized protocols for targeted exams where dose is matched to indication/reason for exam; i.e. extremities or head) *Use of iterative reconstruction technique DLP: 221 mGy-cm FINDINGS: There is a mass in the central left upper lobe that abuts the mediastinum that was targeted for fine-needle aspiration. Postprocedure images demonstrate no pneumothorax or evidence of hemorrhage. There are 2 right upper lobe nodules that are unchanged. There is a small left pleural effusion. There is evidence of atherosclerotic disease and severe coronary artery calcification. CT/CT guided FNA IMPRESSION: CT-guided left upper lung mass fine needle aspiration.
[2021-03-19 11:35] LABS: MANUAL DIFF FLAG NO
[2021-03-19 11:40] LABS: Basophils Absolute Auto 0.1 X10*3/uL (0.0-0.2); Basophils Percent Auto 0.6 % (0-2); Eosinophils Absolute Auto 0.2 X10*3/uL (0.0-0.4); Hematocrit 36.1 % (42-52); Hemoglobin 11.8 g/dl (14.0-18.0); Imm Gran Abs Auto 0.02 X10*3/uL (0.00-0.03); Imm Gran Pct Auto 0.2 % (0.0-0.4); Lymphocytes Absolute Auto 1.7 X10*3/uL (1.2-4.9); Lymphocytes Percent Auto 18.4 % (20-40); Mean Corpuscular HGB Conc 32.7 g/dl (31.0-36.0); Mean Corpuscular Hemoglobin 31.3 pg (27.0-33.0); Mean Corpuscular Volume 95.8 fL (80-98); Mean Platelet Volume 10.2 fL (9.4-12.4); Monocytes Percent Auto 10.9 % (2-11); Neutrophils Absolute Auto 6.4 X10*3/uL (2.0-8.3); Neutrophils Percent Auto 67.9 % (45-73); Platelet Count 172 X10*3/uL (160-400); Red Blood Count 3.77 X10*6/uL (4.60-5.80); Red Cell Distribution Width 13.3 % (11.0-16.0); White Blood Count 9.4 X10*3/uL (4.8-10.8)
[2021-03-19 11:45] LABS: Prothrombin Time 11.9 SEC (9.9-13.0)
[2021-03-19 11:48] LABS: Partial Thromboplastin Time 33.3 SEC (24.1-38.0)
--- NOTE | 2021-03-19 15:00 | HO.RADPN ---
RADIOLOGY Narrative Narrative: Left upper lobe lung fna . Two specimens. No complication.
== END 2021-03-19 15:20 | disposition home or self-care (01) ==
PROVIDERS: PCP Family Medicine; Visit Provider Radiology Diagnostic Radiology
DX: C34.12 Malignant neoplasm of upper lobe, left bronchus or lung (principal); R63.4 Abnormal weight loss; Z68.21 Body mass index [BMI] 21.0-21.9, adult; J44.9 Chronic obstructive pulmonary disease, unspecified; R09.02 Hypoxemia; Z87.891 Personal history of nicotine dependence; I10 Essential (primary) hypertension; Z85.820 Personal history of malignant melanoma of skin; Z57.8 Occupational exposure to other risk factors; Z79.51 Long term (current) use of inhaled steroids; Z79.82 Long term (current) use of aspirin; Z79.899 Other long term (current) drug therapy
CPT/HCPCS: 10009; 36415; 71045; 85025; 85610; 85730; 88172; 88173; 88305; 88341; 88342; 99152; 99153; J2250; J3010

== ENCOUNTER → 2021-05-08 14:01 | Outpatient (REF) | payer MEDICARE, SELFPAY ==
--- NOTE | 2021-05-08 | ECG_ITS ---
Test Reason : ireg. hr Blood Pressure : / mmHG Vent. Rate : 073 BPM Atrial Rate : 000 BPM P-R Int : 000 ms QRS Dur : 084 ms QT Int : 382 ms P-R-T Axes : 000 051 031 degrees QTc Int : 420 ms Atrial fibrillation Nonspecific T wave abnormality Abnormal ECG When compared with ECG of 17-MAR-2021 11:16, Atrial fibrillation has replaced Sinus rhythm Referred By: Omari Salas Electronically Signed By:TRENA RIVAS
== END ==
LOC: HO.CARD 14:01
PROVIDERS: PCP Family Medicine; Visit Provider Family Medicine
DX: I49.9 Cardiac arrhythmia, unspecified (principal)
CPT/HCPCS: 93005

== ENCOUNTER → 2021-07-05 14:50 | Outpatient (BNVA) | payer MEDICARE, SELFPAY | PROVIDERS: PCP Family Medicine; Visit Provider Internal Medicine Cardiovascular Disease | DX: I48.19 Other persistent atrial fibrillation (principal); I25.10 Atherosclerotic heart disease of native coronary artery without angina pectoris | CPT/HCPCS: 99212 ==

== ENCOUNTER → 2021-10-24 11:25 | Outpatient (REF) | payer MEDICARE, SELFPAY ==
--- NOTE | 2021-10-24 11:32 | HM_ITS ---
Conclusion: 1. Patient was monitored for total period of 6 days and 23 hours 2. Baseline numbers normal sinus rhythm with average heart rate of 65 beats per minute 3. No significant pauses or bradycardia noted 4. No episodes of atrial fibrillation noted 5. Multiple short runs of SVT noted longest lasting 11 beats 6. Total of 26,109 PVCs noted accounting for 3.99% of total burden account for frequent PVCs 7. Total of 29,066 PACs noted accounting for 3.53 % of total burden accounting for frequent PACs 8. Patient reported 4 total events of symptoms which correlated with isolated PACs or PVCs. MTDD
--- NOTE | 2021-10-24 11:33 | CA_ITS ---
Transthoracic Echocardiogram Patient (Last, First, Middle): Yonny Cisneros C Gender: Male Date of : 1935 Age: 86 Procedure Date: 10/24/2021 Procedure Type: Transthoracic Echocardiogram Location: OP Height: 177.8 cm Weight: 58.97 kg BSA: 1.74 m2 Heart Rate: bpm BP: 120 / 70 mmHg Unit Secretary: NERIS Roberts MD: Omari Salas MD Prepper: Anish Carter MD Symptoms: SOB ASCDW/O ANGINA NON RHEU AV INSUFF/R/O AI Study Quality: Fair ECG Rhythm: Sinus Conclusions: - 1. Low normal LV systolic function with impaired relaxation abnormality 2. Mild aortic regurgitation 3. Normal RVSP 4. No pericardial effusion Findings Left Ventricle Normal left ventricular cavity size. There is normal left ventricular wall thickness. The left ventricular systolic function is low normal. The visually estimated ejection fraction is between 50-55%. Spectral Doppler is indicative of an impaired relaxation filling pattern. E/E prime ratio is between 8 and 15 consistent with indeterminate filling pressures. Wall Motion Rest Echo Findings The basal inferior segment is hypokinetic. The inferoseptal wall is akinetic. All other scored wall segments showed normal motion. Right Ventricle Normal right ventricular cavity size and systolic function. Atria The left atrium is normal in size. There is lipomatous hypertrophy of the interatrial septum. Interatrial shunt cannot be excluded. The right atrium is normal in size. Aortic Valve There is mild calcification of the aortic valve. There is no aortic valve stenosis. There is mild aortic valve regurgitation. Mitral Valve There is mild anterior and posterior mitral leaflet thickening. There is mild mitral annular calcification. There is trace mitral valve regurgitation. There is no mitral valve stenosis. Tricuspid Valve Likely normal tricuspid valve structure and function. There is trace tricuspid valve regurgitation. The right ventricular systolic pressure is normal. The right ventricular systolic pressure is 16 mmHg. Normal right atrial pressure. There is no evidence of pulmonary hypertension. Great Vessels The pulmonary artery was not well visualized. There is mild dilatation of the ascending aorta. Moderate plaque is seen in the sino tubular ridge. Venous The inferior vena cava is normal in size and collapses greater than 50% with inspiration. Pericardium/Pleural There is no evidence of pericardial effusion. Measurements 2D Linear Measurements IVSd: 0.94 0.6-0.9/0.6-1.0 cm LVIDd: 3.95 3.9-5.3/4.2-5.9 cm LVIDd Index: 2.27 2.4-3.2/2.2-3.1 cm/m2 LVIDs: 3.08 2.0-3.6 cm LVPWd: 0.99 0.7-1.1 cm LA Diam: 3.30 2.7-3.8/3.0-4.0 cm LAIDs Index: 1.90 1.5-2.3 cm/m2 LV Mass: 147.98 67-162/88-224 g LV Mass Index: 85.05 43-95/49-115 g/m2 LVOT Diam: 2.40 3.0+(-)1.3 cm 2D Systolic Function EF 4C: 46.10 >55% EF 2C: 57.40 >55% EF BiP: 51.70 >55% Mitral Valve MV Pk E: 0.54 MV PK A: 0.61 MV Decel Time: 251.00 E/A: 0.90 E'Lateral: 4.68 E'Medial: 5.00 E/E' Med: 10.90 E/E' Lat: 11.60 PHT: 74.00 MVA PHT: 2.97 Decel [place]: 2.17 Aortic Valve AoV Pk All: 0.77 AoV Mn All: 0.54 AoV VTI: 0.19 AoV Pk Grad: 2.00 Aov Mn Grad: 1.00 JULY Cont.VTI: 4.19 LVOT LVOT Pk All: 0.68 LVOT Mn All: 0.50 LVOT VTI: 0.18 LVOT Pk Grad: 2.00 LVOT Mn Grad: 1.00 LVOT Diam: 2.40 LVOT Area: 4.52 Diastolic Function MV Pk E: 0.54 MV Pk A: 0.61 E/A: 0.90 E'Medial: 5.00 E/E' Med: 10.90 E' Laterial: 4.68 E/E' Lat: 11.60 Right Ventricle TAPSE (mm): 3.00 TVS' All: 10.80 Tricuspid Valve TR Pk All: 1.43 TR Pk Grad: 8.00 RA Press: 8.00 RVSP: 16.00 Great Vessels Aorta Sinus of Valsalva: 4.14 2.0-3.5 cm Ao Asc: 3.80 2.1-3.4 cm Ao Arch: 2.90 Updated in Other Vendor System with Status of Final Anish Carter MD electronically signed on 10/24/2021 9:40:23 PM with status of Final
== END ==
LOC: HO.CARD 11:25
PROVIDERS: PCP Family Medicine; Visit Provider Family Medicine
DX: R06.02 Shortness of breath (principal); I25.10 Atherosclerotic heart disease of native coronary artery without angina pectoris; I35.1 Nonrheumatic aortic (valve) insufficiency; I48.19 Other persistent atrial fibrillation
CPT/HCPCS: 93242; 93306

== ENCOUNTER 2021-11-21 04:10 | Inpatient (IN) | payer MEDICARE, SELFPAY ==
[2021-11-21] VITALS (9 sets, daily range): BP systolic 120–183; BP diastolic 60–83; PULSE 71–85; RESP 15–24; TEMP 36.4–36.6; O2SAT 95–97
--- NOTE | 2021-11-21 | ECG_ITS ---
Test Reason : fall Blood Pressure : / mmHG Vent. Rate : 079 BPM Atrial Rate : 079 BPM P-R Int : 174 ms QRS Dur : 086 ms QT Int : 390 ms P-R-T Axes : 000 -18 022 degrees QTc Int : 447 ms Normal sinus rhythm Inferior infarct , age undetermined Abnormal ECG When compared with ECG of 21-NOV-2021 05:18, Inferior infarct is now Present Non-specific change in ST segment in Inferior leads Referred By: Willy Maza Electronically Signed By:ANDREA TRUJILLO MD
--- NOTE | ~2021-11-21 | FL_ITS ---
EXAMINATION: XR FLUOROSCOPY WITH IMAGES EXAMINATION: FL guidance in OR INDICATION: Reason for Exam fracture right hip COMPARISON: No pertinent prior studies are currently available for comparison. TECHNIQUE: Multiple fluoroscopic OR images were provided. FLUOROSCOPY TIME: 0.7 minutes DOSE AREA PRODUCT: 0.183 mGy-m2 FINDINGS: Progressive fluoroscopic imaging demonstrates localization of the intramedullary nail and screw fixation of the right femoral intertrochanteric fracture. No radiologist was in attendance. Please refer to the operative report for complete evaluation. FL/FL guidance in OR IMPRESSION: intramedullary nail and screw fixation of the right femoral intertrochanteric fracture. No radiologist was in attendance. Please refer to the operative report for complete evaluation.
--- NOTE | ~2021-11-21 | CT_ITS ---
EXAMINATION: NONCONTRAST HEAD CT NONCONTRAST CERVICAL SPINE CT INDICATION INFORMATION: Fall on thinners, pain COMPARISON: 03/17/2021 TECHNIQUE: Separate noncontrast CT examinations of the head and cervical spine were performed. Coronal head CT images and coronal and sagittal cervical spine images were created at the technologist workstation. DLP: 1209 mGy-cm DOSE LOWERING TECHNIQUES: This CT examination was performed using dose optimization techniques as appropriate, variously including the following: - Automated exposure control - Adjustment of mA and/or kV according to patient size (this includes techniques or standardized protocols for targeted exams were dose is matched to indication/reason for exam; i.e. extremities or head) - Use of iterative reconstruction technique FINDINGS: Head: There is no evidence of acute intracranial hemorrhage or territorial infarction. No abnormal mass-effect or midline shift is seen. Reyes to white matter differentiation is well preserved. No extra-axial fluid collections are identified. The ventricles are normal in size. There is mild periventricular white matter hypoattenuation consistent with chronic small vessel ischemic disease. Mild volume loss is noted. The osseous structures and soft tissues are normal. There is complete opacification of the left sphenoid sinus. The mastoid air cells are well-aerated. Cervical spine: There is anatomic alignment of the vertebral bodies and posterior elements. There is degenerative change at the atlantodens articulation. Vertebral body heights are maintained. There is disc space narrowing most prominently in the mid cervical spine with associated endplate osteophytes. There is moderate to severe multilevel facet arthropathy. No evidence of acute fracture. No prevertebral soft tissue swelling. Visualized portions of the lung apices demonstrate emphysema. The thyroid gland is grossly unremarkable. CT/CT cervical spine wo con IMPRESSION: No acute findings identified in the head or cervical spine. Chronic appearing and degenerative changes as noted above.
--- NOTE | ~2021-11-21 | XR_ITS ---
EXAMINATION: XR CHEST CLINICAL INFORMATION: Fever. Cough. COMPARISON: Previous chest x-ray November [address] 11/21/2021 TECHNIQUE: Frontal view of the chest was obtained. FINDINGS: The cardiac and mediastinal contours are stable. There is a right jugular port with tip projecting over the SVC. Right upper lobe nodule and more inferior increased density in the perihilar right upper lobe appear unchanged. There is are increased linear markings at the left base suggestive of atelectasis or small infiltrate. This appears similar to previous exams and may be chronic. The lungs are otherwise clear. There is blunting of the right lateral costophrenic angle suggestive of a small right pleural effusion. There is no left pleural effusion. There is no pneumothorax. There are degenerative changes of the spine. XR/XR chest 1V IMPRESSION: Atelectasis or small infiltrate at the left lung base. This may be chronic. Right upper lobe nodule and increased markings in the more inferior suprahilar right upper lobe also unchanged.
--- NOTE | ~2021-11-21 | CT_ITS ---
EXAM: NONCONTRAST CT OF THE CHEST; NONCONTRAST CT OF THE ABDOMEN AND PELVIS INDICATION: Fall with head pain and external rotation, chest wall tenderness COMPARISON: Multiple priors, most recent chest x-ray 03/19/2021 TECHNIQUE: No IV contrast was utilized. Multidetector helical imaging was performed through the chest, abdomen, and pelvis. Coronal and sagittal reformatted images were created at the technologist workstation. DOSE LOWERING TECHNIQUES: This CT examination was performed using dose optimization techniques as appropriate, variously including the following: - Automated exposure control - Adjustment of mA and/or kV according to patient size (this includes techniques or standardized protocols for targeted exams were dose is matched to indication/reason for exam; i.e. extremities or head) - Use of iterative reconstruction technique DLP: 950 mGy-cm FINDINGS: Chest: Mild upper lobe predominant emphysema. There has been significant interval decrease in size of the medial left upper lobe mass compared to prior, not well delineated on this exam without intravenous contrast. Focal atelectasis suspected in the inferior lingula. Mild patchy opacity redemonstrated in the basilar left lower lobe. Redemonstrated right upper lobe nodule measuring approximately 1.4 cm with some surrounding curvilinear opacity. Additional irregular shape nodular density in the inferior right upper lobe measures 1.4 cm, also similar to prior. Subsegmental atelectasis is present in the right middle lobe. Small pleural effusions noted. No pneumothorax. The visualized thyroid gland is unremarkable. No definite mediastinal lymphadenopathy is seen, though assessment is limited without intravenous contrast. Cardiac size is within normal limits; no pericardial effusion. Coronary artery calcifications are present. There is atherosclerotic calcification along the aorta. No axillary lymphadenopathy is present. No displaced rib fractures seen. A few subtle anterior right rib deformities appear similar to prior. Degenerative changes are noted in the spine. Abdomen/Pelvis: The liver is homogeneous in attenuation without intrahepatic biliary ductal dilatation. Mild hyperdensity in the gallbladder may be due vicarious excretion of prior contrast. Spleen and adrenal glands appear grossly unremarkable. Pancreas is not well delineated. The unenhanced kidneys are unremarkable without hydronephrosis. No renal or ureteral calculi are present. The urinary bladder is distended with excreted contrast material. The prostate and seminal vesicles are grossly unremarkable. No evidence of bowel obstruction. The rectum is distended with gas and stool. Hyperdense material is present throughout much of the colon. No significant bowel wall thickening is seen, though assessment in some regions is limited due to luminal collapse. No free fluid or free air is seen. Extensive atherosclerotic calcifications are present. No lymphadenopathy is seen, though assessment is limited in the absence of intravenous contrast. Degenerative changes are noted in the spine. There is a minimally displaced intertrochanteric fracture of the proximal right femur. CT/CT abdomen pelvis wo con IMPRESSION: 1. Minimally displaced intertrochanteric fracture of the proximal right femur. 2. Limited evaluation of the abdomen/pelvis in the absence of intravenous contrast. 3. Significant interval decrease in size of the medial left upper lobe lung mass compared to 03/06/2021. Right upper lobe nodules are similar to prior. 4. Small pleural effusions. 5. Rectum is distended with gas and stool.
[2021-11-21 05:17] LABS: COVID-19 Test Negative (Negative); IDNOW Serial# 55D5AD1C
--- NOTE | 2021-11-21 05:18 | ECG_ITS ---
Test Reason : FALL Blood Pressure : / mmHG Vent. Rate : 079 BPM Atrial Rate : 000 BPM P-R Int : 000 ms QRS Dur : 080 ms QT Int : 356 ms P-R-T Axes : 000 083 079 degrees QTc Int : 408 ms Poor data quality Possible Normal sinus rhythm Nonspecific T wave abnormality Abnormal ECG When compared with ECG of 08-MAY-2021 14:13, Poor data quality in current ECG precludes serial comparison Referred By: Ally Agustin Electronically Signed By:ANDREA TRUJILLO MD
[2021-11-21] MEDS: fentaNYL citrate/PF 100 MCG/2 ML VIAL 25 MCG IVPUSH (05:29)
[2021-11-21 05:40] LABS: MANUAL DIFF FLAG NO
[2021-11-21 05:41] LABS: Basophils Percent Auto 0.5 % (0-2); Eosinophils Absolute Auto 0.1 X10*3/uL (0.0-0.4); Eosinophils Percent Auto 1.6 % (0-4); Hematocrit 35.4 % (42.0-52.0); Hemoglobin 11.5 g/dl (14.0-18.0); Imm Gran Abs Auto 0.03 X10*3/uL (0.00-0.03); Imm Gran Pct Auto 0.4 % (0.0-0.4); Lymphocytes Absolute Auto 0.9 X10*3/uL (1.2-4.9); Lymphocytes Percent Auto 11.5 % (20-40); Mean Corpuscular HGB Conc 32.5 g/dl (31.0-36.0); Mean Corpuscular Hemoglobin 30.8 pg (27.0-33.0); Mean Corpuscular Volume 94.9 fL (80.0-98.0); Mean Platelet Volume 9.7 fL (9.4-12.4); Monocytes Absolute Auto 0.7 X10*3/uL (0.1-1.2); Monocytes Percent Auto 8.3 % (2-11); Neutrophils Absolute Auto 6.3 x10*3/uL (2.0-8.3); Neutrophils Percent Auto 77.7 % (45-73); Platelet Count 142 X10*3/uL (160-400); Red Blood Count 3.73 X10*6/uL (4.60-5.80); Red Cell Distribution Width 13.4 % (11.0-16.0); White Blood Count 8.1 X10*3/uL (4.8-10.8)
[2021-11-21 06:08] LABS: Alanine Aminotransferase 27 U/L (0-40); Albumin Level 3.7 g/dL (3.5-5.0); Alkaline Phosphatase 80 U/L (39-117); Anion Gap 12 (12-20); Aspartate Amino Transferase 27 U/L (5-37); Bilirubin Total 0.5 mg/dL (0.0-1.0); Blood Urea Nitrogen 22 mg/dL (9-16); Calcium 9.1 mg/dL (8.4-10.2); Carbon Dioxide 29 mmol/L (22-29); Chloride 101 mmol/L (96-108); Creatinine Clr Calc Pharmacy 39.3; Estimated Glomerular Filt Rate 57; Glucose Random 106 mg/dL (60-115); Potassium 4.4 mmol/L (3.3-5.1); Sodium 138 mmol/L (135-145); Total Protein 5.7 g/dL (6.5-8.0)
--- NOTE | 2021-11-21 06:22 | ED.FALL ---
HPI - Fall General Chief Complaint: Fall Stated Complaint: fall Time Seen by Provider: 11/21/21 05:13 Source: patient and family Mode of arrival: EMS History of Present Illness HPI Narrative: 86-year-old male who arrives via EMS with history of AFib on anticoagulation and as well as long CA who got up to the bathroom and heard the patient knocking on the door. Patient denies any loss of consciousness but did hit the back of his head and states he has some skin tears to the right upper extremity. Patient has complaint of significant pain at the right pelvis. Otherwise denies pain elsewhere except for the back of his head. Related Data Home Medications Medication Instructions Recorded Confirmed atorvastatin 20 mg tablet 20 mg PO DAILY 02/14/21 07/05/21 coenzyme Q10 10 mg capsule 10 mg PO DAILY 02/14/21 07/05/21 fluticasone furoate 200 1 ea INHALATION DAILY 02/14/21 07/05/21 mcg-vilanterol 25 mcg/dose inhalation powder glucosamine 750 mg-chondroit 100 1 tab PO 02/14/21 07/05/21 mg-msm-D3 25 dsv-vlyo-puj bor tablet (Move Free Plus MSM-Vit D3) latanoprost 0.005 % eye drops 1 drp OPHTHALMIC (EYE) DAILY 02/14/21 07/05/21 lisinopril 20 mg tablet 20 mg PO DAILY 02/14/21 07/05/21 multivitamin 1 tab PO DAILY 02/14/21 07/05/21 umeclidinium 62.5 mcg/actuation 1 inh INHALATION DAILY 02/14/21 07/05/21 blister powder for inhalation apixaban 2.5 mg tablet (Eliquis) 2.5 mg PO BID 07/05/21 07/05/21 hydroxyzine pamoate 25 mg capsule 25 mg PO BEDTIME 07/05/21 07/05/21 levothyroxine 75 mcg tablet 88 mcg PO DAILY 07/05/21 07/05/21 ondansetron HCl 4 mg tablet 4 mg PO Q12H PRN 07/05/21 07/05/21 metoprolol succinate 25 mg 50 mg PO DAILY 11/21/21 tablet,extended release 24 hr (Toprol XL) Allergies Allergy/AdvReac Type Severity Reaction Status Date / Time shellfish Allergy Severe gout Uncoded 07/22/21 08:16 Review of Systems Review of Systems: Pertinent positives and negatives as stated in HPI 10 point review of systems is otherwise negative. [facility] Past Medical History Source: nursing notes reviewed Medical History CAD (coronary artery disease) COPD (chronic obstructive pulmonary disease) HTN (hypertension) Hypoxia Limb swelling Lung mass Melanoma Persistent atrial fibrillation Weight loss Family History Family History Other HTN (hypertension) Social History Social History Alcohol intake: never Patient Tobacco Use Status: Former Tobacco user Tobacco use type: Cigarette Years Smoked: 10 years Advance Directives: No Physical Exam Vital Signs: Vital Signs: Last Vital Signs Temp 97.8 F 11/21/21 04:25 Pulse 78 11/21/21 06:48 Resp 16 11/21/21 06:48 BP 164/80 H 11/21/21 06:48 Pulse Ox 96 11/21/21 06:48 BMI result Body Mass Index 20.0 VITAL SIGNS: Reviewed. GENERAL: Chronically ill, cachectic, in moderate distress. HEAD: Normocephalic/hematoma to occiput EYES: PERRLA, EOMI EARS: Ext canals without abnormality, TMs non-bulging and non-erythematous NOSE: Nares patent bilateral OROPHARYNX: no oral lesions noted, posterior pharynx clear NECK: C-collar in place, no midline cervical spine tenderness, adenopathy LUNGS: Normal breath sounds. No adventitious sounds or accessory muscle use. SpO2<96>;CHEST WALL: There is no chest wall tenderness, crepitus, or deformity noted CARDIOVASCULAR: Regular rate and rhythm without noted murmurs, no JVD or lower extremity edema. ABDOMEN: Soft, non-tender, non-distended with bowel sounds. MUSCULOSKELETAL: No tenderness, deformities, or effusions noted on gross inspection. EXTREMITIES: No cyanosis, clubbing or edema; 2 superficial skin tears to the right upper extremity treated Vaseline gauze Jesse wrap SKIN: Inspection of the skin reveals no rashes NEUROLOGIC: Alert and oriented x 4. Strength and sensation to light touch were grossly intact x 4. Course Course Course Narrative: 86-year-old male with history and clinical presentation consistent with fall without LOC on anticoagulation and on review of all investigations findings significant for right intratrochanteric fracture, however no other acute findings. C-collar was cleared and Orthopedics was contacted regarding the hip fracture. Recommendations were for admission to medicine with Orthopedics consultation. I then discussed the case inpatient hospitalist who accepts admission. MDM - Fall Lab Data Result diagrams: 11/21/21 05:37 11/21/21 05:37 Labs: Lab Results 11/21/21 11/21/21 11/21/21 Range/Units 04:56 05:37 05:37 WBC 8.1 (4.8-10.8) X10*3/uL RBC 3.73 L (4.60-5.80) X10*6/uL Hgb 11.5 L (14.0-18.0) g/dl Hct 35.4 L (42.0-52.0) % MCV 94.9 (80.0-98.0) fL MCH 30.8 (27.0-33.0) pg MCHC 32.5 (31.0-36.0) g/dl RDW 13.4 (11.0-16.0) % Plt Count 142 L (160-400) X10*3/uL MPV 9.7 (9.4-12.4) fL Immature Gran % (Auto) 0.4 (0.0-0.4) % Neut % (Auto) 77.7 H (45-73) % Lymph % (Auto) 11.5 L (20-40) % [place] % (Auto) 8.3 (2-11) % Eos % (Auto) 1.6 (0-4) % Baso % (Auto) 0.5 (0-2) % Lymph # (Auto) 0.9 L (1.2-4.9) X10*3/uL [place] # (Auto) 0.7 (0.1-1.2) X10*3/uL Eos # (Auto) 0.1 (0.0-0.4) X10*3/uL Baso # (Auto) 0.0 (0.0-0.2) X10*3/uL Abs Immat Gran (auto) 0.03 (0.00-0.03) X10*3/uL Absolute Neuts (auto) 6.3 (2.0-8.3) x10*3/uL Absolute Nucleated RBC 0.000 (0.0-0.012) X10*3/uL Nucleated RBC % (auto) 0.0 (0.0-0.2) /100WBC PT (9.9-13.0) SEC INR (0.9-1.1) Sodium 138 (135-145) mmol/L Potassium 4.4 (3.3-5.1) mmol/L Chloride 101 (96-108) mmol/L Carbon Dioxide 29 (22-29) mmol/L Anion Gap 12 (12-20) BUN 22 H (9-16) mg/dL Creatinine 1.21 (0.5-1.4) mg/dL Estim Creat Clear Calc 39.3 Estimated GFR 57 Random Glucose 106 (60-115) mg/dL Calcium 9.1 (8.4-10.2) mg/dL Total Bilirubin 0.5 (0.0-1.0) mg/dL AST 27 (5-37) U/L ALT 27 (0-40) U/L Alkaline Phosphatase 80 (39-117) U/L Total Protein 5.7 L (6.5-8.0) g/dL Albumin 3.7 (3.5-5.0) g/dL Urine Color Urine Appearance Urine pH (5.0-8.0) Ur Specific [place] (1.005-1.025) Urine Protein (NEG-TRACE) MG/DL Urine Glucose (UA) (NEG) MG/DL Urine Ketones (NEG) MG/DL Urine Blood (NEG) Urine Nitrite (NEG) Ur Leukocyte Esterase (NEG) COVID-19 (SELWYN) Negative (Negative) COVID-19 Clin Com See Note 11/21/21 11/21/21 Range/Units 06:34 07:10 WBC (4.8-10.8) X10*3/uL RBC (4.60-5.80) X10*6/uL Hgb (14.0-18.0) g/dl Hct (42.0-52.0) % MCV (80.0-98.0) fL MCH (27.0-33.0) pg MCHC (31.0-36.0) g/dl RDW (11.0-16.0) % Plt Count (160-400) X10*3/uL MPV (9.4-12.4) fL Immature Gran % (Auto) (0.0-0.4) % Neut % (Auto) (45-73) % Lymph % (Auto) (20-40) % [place] % (Auto) (2-11) % Eos % (Auto) (0-4) % Baso % (Auto) (0-2) % Lymph # (Auto) (1.2-4.9) X10*3/uL [place] # (Auto) (0.1-1.2) X10*3/uL Eos # (Auto) (0.0-0.4) X10*3/uL Baso # (Auto) (0.0-0.2) X10*3/uL Abs Immat Gran (auto) (0.00-0.03) X10*3/uL Absolute Neuts (auto) (2.0-8.3) x10*3/uL Absolute Nucleated RBC (0.0-0.012) X10*3/uL Nucleated RBC % (auto) (0.0-0.2) /100WBC PT 15.0 H (9.9-13.0) SEC INR 1.3 H (0.9-1.1) Sodium (135-145) mmol/L Potassium (3.3-5.1) mmol/L Chloride (96-108) mmol/L Carbon Dioxide (22-29) mmol/L Anion Gap (12-20) BUN (9-16) mg/dL Creatinine (0.5-1.4) mg/dL Estim Creat Clear Calc Estimated GFR Random Glucose (60-115) mg/dL Calcium (8.4-10.2) mg/dL Total Bilirubin (0.0-1.0) mg/dL AST (5-37) U/L ALT (0-40) U/L Alkaline Phosphatase (39-117) U/L Total Protein (6.5-8.0) g/dL Albumin (3.5-5.0) g/dL Urine Color YELLOW Urine Appearance CLEAR Urine pH 6.5 (5.0-8.0) Ur Specific [place] 1.010 (1.005-1.025) Urine Protein NEG (NEG-TRACE) MG/DL Urine Glucose (UA) NEG (NEG) MG/DL Urine Ketones NEG (NEG) MG/DL Urine Blood NEG (NEG) Urine Nitrite NEG (NEG) Ur Leukocyte Esterase NEG (NEG) COVID-19 (SELWYN) (Negative) COVID-19 Clin Com ECG Data Attestation: I personally reviewed and interpreted this ECG as follows: Prior ECG tracings: available for review Interpretation: Atrial fibrillation, HR-79, QRS/QTC are within normal limits. Critical Care Time Critical Care Time Critical Care Time: Yes Total Critical Care Time: 30 Attestation: I personally attest to this time spent taking care of the patient. Discharge Plan Discharge Clinical Impression: Closed intertrochanteric fracture, COPD (chronic obstructive pulmonary disease), Hypertension, Atrial fibrillation, Lung cancer Patient Disposition: Admitted As Inpatient Prescriptions: No Action metoprolol succinate [Toprol XL] 25 mg tablet extended release 24 hr 50 mg PO DAILY 0RF lisinopril 20 mg tablet 20 mg PO DAILY 0RF atorvastatin 20 mg tablet 20 mg PO DAILY 0RF umeclidinium 62.5 mcg/actuation blister with device 1 inh inhalation DAILY 0RF fluticasone furoate-vilanterol 200-25 mcg/dose blister with device 1 ea inhalation DAILY 0RF latanoprost 0.005 % drops 1 drp ophthalmic (eye) DAILY 0RF multivitamin Tablet 1 tab PO DAILY 0RF coenzyme Q10 10 mg capsule 10 mg PO DAILY 0RF Move Free Plus MSM-Vit D3 750 mg-100 mg- 25 mcg tablet 1 tab PO 0RF ondansetron HCl 4 mg tablet 4 mg PO Q12H PRN (Reason: nausea) 0RF levothyroxine 75 mcg tablet 88 mcg PO DAILY 0RF hydroxyzine pamoate 25 mg capsule 25 mg PO BEDTIME 0RF Eliquis 2.5 mg tablet 2.5 mg PO BID 0RF
[2021-11-21 06:42] LABS: INTERNATIONAL NORM RATIO 1.3 (0.9-1.1)
--- NOTE | 2021-11-21 07:00 | PC.NURSE ---
at bedside, pt has 3 skin tears. one to rt elbow, rt wrist, and left bicep. all wound sites cleansed with sterile water, covered with petroleum gauze, and wrapped with DPD.
[2021-11-21 07:18] LABS: Appearance Urine CLEAR; Color Urine YELLOW; Glucose Urine UA NEG (NEG); Leukocyte Esterase Urine NEG (NEG); Nitrite Urine NEG (NEG); PH 6.5 (5.0-8.0); Urine Blood NEG (NEG); Urine Ketones NEG (NEG); Urine Protein NEG (NEG-TRACE)
--- NOTE | 2021-11-21 07:23 | PC.NURSE ---
pt came in c-spine collar. collar d/c per MD Esparza
--- NOTE | 2021-11-21 07:40 | P.HPOP_ITS ---
History of Present Illness History of Present Illness Date of Service: 11/21/21 Chief complaint: fall Narrative: Yonny Cisneros is a 86 year old male who presents to the ED after sustaining a mechanical fall this morning. He lives with his Kenia who is at his bedside. He walks at baseline. His past medical history significant for lung cancer, COPD, hypertension. He is currently on Eliquis with his last dose being last night. He is currently undergoing immunotherapy for the lung cancer at [facility] with Dr. Taylor. He walks without any assistive devices. Denies any alcohol or illicit drug use. Tobacco use. CT of the pelvis revealed a right intertrochanteric hip fracture. Orthopedics was consult for further evaluation treatment. Patient be admitted to the medicine service for medical clearance pending right hip surgery. Review of Systems Review of Systems: Yes all other systems are reviewed and are negative PMFSH Past Medical History Medical History CAD (coronary artery disease) COPD (chronic obstructive pulmonary disease) HTN (hypertension) Hypoxia Limb swelling Lung mass Melanoma Persistent atrial fibrillation Weight loss Family History Family History Other HTN (hypertension) Social History Social History Alcohol intake: never Patient Tobacco Use Status: Former Tobacco user Tobacco use type: Cigarette Years Smoked: 10 years Advance Directives: No Meds Allergies Allergy/AdvReac Type Severity Reaction Status Date / Time shellfish Allergy Severe gout Uncoded 03/08/21 08:16 Home Medications Medication Instructions Recorded Confirmed Last Taken Type atorvastatin 20 mg tablet 20 mg PO DAILY 02/14/21 07/05/21 Unknown History coenzyme Q10 10 mg capsule 10 mg PO DAILY 02/14/21 07/05/21 Unknown History fluticasone furoate 200 1 ea INHALATION DAILY 02/14/21 07/05/21 Unknown History mcg-vilanterol 25 mcg/dose inhalation powder glucosamine 750 mg-chondroit 100 1 tab PO 02/14/21 07/05/21 Unknown History mg-msm-D3 25 bju-pgrp-zud bor tablet (Move Free Plus MSM-Vit D3) latanoprost 0.005 % eye drops 1 drp OPHTHALMIC (EYE) DAILY 02/14/21 07/05/21 Unknown History lisinopril 20 mg tablet 20 mg PO DAILY 02/14/21 07/05/21 Unknown History multivitamin 1 tab PO DAILY 02/14/21 07/05/21 Unknown History umeclidinium 62.5 mcg/actuation 1 inh INHALATION DAILY 02/14/21 07/05/21 Unknown History blister powder for inhalation apixaban 2.5 mg tablet (Eliquis) 2.5 mg PO BID 07/05/21 07/05/21 Unknown History hydroxyzine pamoate 25 mg capsule 25 mg PO BEDTIME 07/05/21 07/05/21 Unknown History levothyroxine 75 mcg tablet 88 mcg PO DAILY 07/05/21 07/05/21 Unknown History ondansetron HCl 4 mg tablet 4 mg PO Q12H PRN 07/05/21 07/05/21 Unknown History metoprolol succinate 25 mg 50 mg PO DAILY 11/21/21 Unknown History tablet,extended release 24 hr (Toprol XL) Physical Exam Vital Signs: Vital Signs: Last Vital Signs Temp 97.8 F 11/21/21 04:25 Pulse 78 11/21/21 06:48 Resp 16 11/21/21 06:48 BP 164/80 H 11/21/21 06:48 Pulse Ox 96 11/21/21 06:48 BMI result Body Mass Index 20.0 Const: General: cooperative, healthy appearing and no acute distress Resp: Effort & Inspection: normal respiratory effort and able to speak in complete sentences Cardio: Rate: regular rate Peripheral pulses: Peripheral pulses 2+ throughout GI: Palpation (GI): Soft to palpation Skin: Lesions: no lesions Rashes: no rashes Extrem: Other: Right hip skin intact. Leg is short and externally rotated. Pain with logroll. NVI. Results Labs Result Diagrams: 11/21/21 05:37 11/21/21 05:37 Labs: Abnormal lab results 11/21/21 11/21/21 11/21/21 Range/Units 05:37 05:37 06:34 RBC 3.73 L (4.60-5.80) X10*6/uL Hgb 11.5 L (14.0-18.0) g/dl Hct 35.4 L (42.0-52.0) % Plt Count 142 L (160-400) X10*3/uL Neut % (Auto) 77.7 H (45-73) % Lymph % (Auto) 11.5 L (20-40) % Lymph # (Auto) 0.9 L (1.2-4.9) X10*3/uL PT 15.0 H (9.9-13.0) SEC INR 1.3 H (0.9-1.1) BUN 22 H (9-16) mg/dL Total Protein 5.7 L (6.5-8.0) g/dL H & H 11/21/21 Range/Units 05:37 Hgb 11.5 L (14.0-18.0) g/dl Hct 35.4 L (42.0-52.0) % Coagulation 11/21/21 Range/Units 06:34 INR 1.3 H (0.9-1.1) All other labs normal. Assessment and Plan (1) Closed intertrochanteric fracture: Status: Acute Plan Yonny Cisneros is a 86 year old male who presents to the ED after sustaining a mechanical fall this morning. He lives with his Kenia who is at his bedside. He walks at baseline. His past medical history significant for lung cancer, COPD, hypertension. He is currently on Eliquis with his last dose being last night. He is currently undergoing immunotherapy for the lung cancer at [facility] with Dr. Taylor. He walks without any assistive devices. Denies any alcohol or illicit drug use. Tobacco use. CT of the pelvis revealed a right intertrochanteric hip fracture. Orthopedics was consult for further evaluation treatment. Patient be admitted to the medicine service for medical clearance pending right hip surgery. I discussed the case with Dr. Fowler and explained the extent of the injury to the patient and options available which include surgical intervention. I explained the procedure in detail along with the length of recovery and rehab course. I explained the risk, benefits and alternatives. Risk including, but not limited to infection, blood clots, bleeding, non union or malunion and ne rve/tissue damage to surrounding areas. I answered all their questions and with their understanding they have consented to move forward with Operative Fixation of right hip. The patient will be T&S, med clearance to be obtained by medicine, and hold Eliquis. Quality Stroke Does the patient have a stroke diagnosis?: No VTE Prior VTE?: No VTE Risk Level:: Surgical - very high VTE Device Contraindication: N/A - Device Ordered VTE Drug Contraindication: N/A - Med Ordered Procedures Date of Service Date of Service: 11/21/21
--- NOTE | 2021-11-21 09:30 | PM.IMHP ---
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 The patient reports that he was in his usual state of health and got up to go to the bathroom. He reports feeling dizzy after walking a short distance followed by a fall. He denies any loss of consciousness. He denies any chest pain or palpitations prior to the fall. He reports that he does have an assistive device for ambulation but that he has not required it recently. His imaging studies in the ED revealed a minimally displaced R intertrochanteric fx of the proximal R femur. His case was discussed with the Orthopedic team and he will now be admitted for further management. Review of Systems Review of Systems: negative except HPI [facility] Medical History CAD (coronary artery disease) COPD (chronic obstructive pulmonary disease) HTN (hypertension) Hypoxia Limb swelling Lung mass Melanoma Paroxysmal A-fib Weight loss Family History Father Colon cancer Other HTN (hypertension) Pertinent family history: Colon Cancer in father Surgical History Hx of hernia repair Previous back surgery Social History Alcohol intake: never Patient Tobacco Use Status: Former Tobacco user Tobacco use type: Cigarette Years Smoked: 10 years Use of substances other than those prescribed or required for medical reasons: No Advance Directives: No Meds Allergies Allergy/AdvReac Type Severity Reaction Status Date / Time shellfish Allergy Severe gout Uncoded 03/08/21 08:16 Active Medications: Current Medications Acetaminophen (Acetaminophen 325 Mg Tablet) 650 mg PO Q6H PRN PRN Reason: Pain, Mild (Pain Scale 1-3) Morphine Sulfate (Morphine Sulfate 2 Mg/Ml Cartridge) 2 mg IVPUSH Q3H PRN; Protocol PRN Reason: Pain, Severe (Pain Scale 7-10) Oxycodone HCl (Oxycodone Hcl Immed Release 5 Mg Tablet) 5 mg PO Q6H PRN PRN Reason: Pain, Severe (Pain Scale 7-10) Sodium Chloride (0.9 % Sodium Chloride Flush 3 Ml Syringe) 3 ml IVFLUSH QSHIFT [facility] Home Medications Medication Instructions Recorded Confirmed Last Taken Type atorvastatin 20 mg tablet 20 mg PO DAILY 02/14/21 07/05/21 Unknown History coenzyme Q10 10 mg capsule 10 mg PO DAILY 02/14/21 07/05/21 Unknown History fluticasone furoate 200 1 ea INHALATION DAILY 02/14/21 07/05/21 Unknown History mcg-vilanterol 25 mcg/dose inhalation powder glucosamine 750 mg-chondroit 100 1 tab PO 02/14/21 07/05/21 Unknown History mg-msm-D3 25 [id number]-[id number] bor tablet (Move Free Plus MSM-Vit D3) latanoprost 0.005 % eye drops 1 drp OPHTHALMIC (EYE) DAILY 02/14/21 07/05/21 Unknown History lisinopril 20 mg tablet 20 mg PO DAILY 02/14/21 07/05/21 Unknown History multivitamin 1 tab PO DAILY 02/14/21 07/05/21 Unknown History umeclidinium 62.5 mcg/actuation 1 inh INHALATION DAILY 02/14/21 07/05/21 Unknown History blister powder for inhalation apixaban 2.5 mg tablet (Eliquis) 2.5 mg PO BID 07/05/21 07/05/21 Unknown History hydroxyzine pamoate 25 mg capsule 25 mg PO BEDTIME 07/05/21 07/05/21 Unknown History levothyroxine 88 mcg tablet 1 tab PO DAILY 11/21/21 Unknown History metoprolol succinate 25 mg 50 mg PO DAILY 11/21/21 Unknown History tablet,extended release 24 hr (Toprol XL) sertraline 25 mg tablet 1 tab PO DAILY 11/21/21 Unknown History Physical Exam Vital Signs and Narrative: Vital Signs: Last Vital Signs Temp 97.6 F 11/21/21 08:35 Pulse 76 11/21/21 08:35 Resp 17 11/21/21 08:35 BP 150/70 H 11/21/21 08:35 Pulse Ox 96 11/21/21 08:35 BMI result Body Mass Index 20.0 Const: Other: Constitutional - Awake and Alert, No apparent distress; frail in appearance Eyes - PERRLA, EOMI Cardiovascular - S1S2, rate below 100 and appears to be in sinus on telemonitor with freq. PAC/PVC Respiratory - Normal lung expansion, Normal respiratory effort, No respiratory distress, CTA bilaterally Gastrointestinal - NT / ND; +BS; No rebound or guarding - No CVA tenderness Extremities - no calf tenderness bilaterally, no swelling Musculoskeletal - RLE shortened and externally rotated Skin - Warm/Dry Neurological - Alert & oriented x3, No focal deficit Psychological - Appropriate affect Results Labs CBC and Chem 7: 11/21/21 05:37 11/21/21 05:37 Labs: Laboratory Results - last 24 hr 11/21/21 11/21/21 11/21/21 04:56 05:37 05:37 MCV 94.9 MCH 30.8 MCHC 32.5 RDW 13.4 Plt Count 142 L MPV 9.7 Immature Gran % (Auto) 0.4 Neut % (Auto) 77.7 H Lymph % (Auto) 11.5 L [place] % (Auto) 8.3 Eos % (Auto) 1.6 Baso % (Auto) 0.5 Lymph # (Auto) 0.9 L [place] # (Auto) 0.7 Eos # (Auto) 0.1 Baso # (Auto) 0.0 Abs Immat Gran (auto) 0.03 Absolute Neuts (auto) 6.3 Absolute Nucleated RBC 0.000 Nucleated RBC % (auto) 0.0 PT INR Anion Gap 12 Estim Creat Clear Calc 39.3 Estimated GFR 57 Random Glucose 106 Calcium 9.1 Total Bilirubin 0.5 AST 27 ALT 27 Alkaline Phosphatase 80 Total Protein 5.7 L Albumin 3.7 Urine Color Urine Appearance Urine pH Ur Specific [place] Urine Protein Urine Glucose (UA) Urine Ketones Urine Blood Urine Nitrite Ur Leukocyte Esterase COVID-19 (SELWYN) Negative COVID-19 Clin Com See Note Blood Type Antibody Screen 11/21/21 11/21/21 11/21/21 06:34 06:58 07:10 MCV MCH MCHC RDW Plt Count MPV Immature Gran % (Auto) Neut % (Auto) Lymph % (Auto) [place] % (Auto) Eos % (Auto) Baso % (Auto) Lymph # (Auto) [place] # (Auto) Eos # (Auto) Baso # (Auto) Abs Immat Gran (auto) Absolute Neuts (auto) Absolute Nucleated RBC Nucleated RBC % (auto) PT 15.0 H INR 1.3 H Anion Gap Estim Creat Clear Calc Estimated GFR Random Glucose Calcium Total Bilirubin AST ALT Alkaline Phosphatase Total Protein Albumin Urine Color YELLOW Urine Appearance CLEAR Urine pH 6.5 Ur Specific [place] 1.010 Urine Protein NEG Urine Glucose (UA) NEG Urine Ketones NEG Urine Blood NEG Urine Nitrite NEG Ur Leukocyte Esterase NEG COVID-19 (SELWYN) COVID-19 Clin Com Blood Type O Negative Antibody Screen NEGATIVE Imaging Radiologist's Impressions: Impressions Cervical Spine CT 11/21/21 06:20 IMPRESSION: No acute findings identified in the head or cervical spine. Chronic appearing and degenerative changes as noted above. Head CT 11/21/21 06:20 IMPRESSION: No acute findings identified in the head or cervical spine. Chronic appearing and degenerative changes as noted above. Abdomen/Pelvis CT 11/21/21 06:34 IMPRESSION: 1. Minimally displaced intertrochanteric fracture of the proximal right femur. 2. Limited evaluation of the abdomen/pelvis in the absence of intravenous contrast. 3. Significant interval decrease in size of the medial left upper lobe lung mass compared to 03/06/2021. Right upper lobe nodules are similar to prior. 4. Small pleural effusions. 5. Rectum is distended with gas and stool. Chest CT 11/21/21 06:34 IMPRESSION: 1. Minimally displaced intertrochanteric fracture of the proximal right femur. 2. Limited evaluation of the abdomen/pelvis in the absence of intravenous contrast. 3. Significant interval decrease in size of the medial left upper lobe lung mass compared to 03/06/2021. Right upper lobe nodules are similar to prior. 4. Small pleural effusions. 5. Rectum is distended with gas and stool. 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 This has resulted in a R minimally displaced intertrocanteric, proximal femur fx. The patient and family have elected for operative repair. 1. R minimally displaced intertrocanteric, proximal femur fx Plan for operative repair -- however, he is on OAC with Eliquis with last dose 11/20/21 evening; Ortho consult The patient's presentation is likey secondary to mechanical fall and he denies any loss of consciousness; Nonetheless, he does have a significant cardiac history and hence will get Cardiology consultation for pre-operative evaluation 2. Paroxsmal A. Fib/CAD previously persistent, but recent outpatient echo showing no A. Fib continue metoprolol, statin hold eliquis as above will monitor on telemetry in the lidia-operative period 3. Stage 4 AdenoCa of the Lung receiving immunotherapy at [facility] CT of the chest shows improvement of the mass outpatient f/u with oncology 4. Chronic COPD continue his baseline inhalers 5. HTN metoprolol hold RAJAN if he is on any 6. Hypothyroidism synthroid Med rec pending, continue home meds as appropriate Full Code DVT pptx, Mechanical for now; pharmacological post surgery Endorses his as HCP In light of the patients hip fracture (which will require operative repair) and multiple co-mobidconditions including CAD/A. Fib/COPD/Lung Ca -- I anticipate a medically necessary, inpatient admission, which will span at least 2 midnights. This cannot be completed in a less acute setting. Quality Stroke Does the patient have a stroke diagnosis?: No VTE Prior VTE?: No VTE Risk Level:: Medical - moderate - high VTE Device Contraindication: Treatment Not Indicated VTE Drug Contraindication: N/A - Med Ordered
[2021-11-21] MEDS: Morphine Sulfate 2 MG/ML CARTRIDGE IVPUSH (11:12)
--- NOTE | 2021-11-21 11:39 | PHA.MEDREC ---
Pharmacy Consult ? Medication Reconciliation Pharmacy has completed the medication reconciliation. No remarkable issues. Magda Frye, ChiD
[2021-11-21] MEDS: oxyCODONE HCl Immed Release 5 MG TABLET PO ×2 (15:51→23:21)
[2021-11-21] MEDS: Acetaminophen 325 MG TABLET 650 MG PO (15:51)
--- NOTE | 2021-11-21 16:00 | PC.NURSE ---
DR. TRUJILLO AT BEDSIDE, PT/ AWARE OF PLAN OF CARE.
[2021-11-21] MEDS: 0.9 % Sodium Chloride Flush 3 ML SYRINGE IVFLUSH (16:14)
--- NOTE | 2021-11-21 17:26 | P.CONCA_ITS ---
History of Present Illness History of Present Illness Date of Service: 11/21/21 Requesting physician: Willy Maza Consult reason: pre-op evaluation Chief complaint: fall hip fracture Narrative: I was requested to see Yonny in cardiology consultation today for preoperative cardiovascular risk stratification. Yonny has prior history of coronary artery disease status post stenting with no recent symptoms suggestive angina, advanced lung cancer currently on immunotherapy, paroxysmal atrial fibrillation on metoprolol and oral anticoagulation therapy, hypertension, frailty. Came to the hospital after a fall. There was reported some dizziness however patient denies that. He said he just fell and had right hip pain and has developed right hip fracture. On presentation patient EKG shows normal sinus rhythm with no evidence of ischemia. He had no symptoms of chest pain or shortness of breath prior to the fall. He does have chronic shortness of breath with exertion. No orthopnea, PND, leg edema. Takes all his medications at home. Plan to undergo repair of his right hip under general anesthesia. Review of Systems Constitutional: Constitutional: Reports no additional constitutional complaints Eyes: Eyes: Reports no additional eye complaints Cardiovascular: Cardiovascular: Reports no additional cardiovascular com plaints and Reports dyspnea on exertion Respiratory: Respiratory: Reports dyspnea on exertion Gastrointestinal: Gastrointestinal: Reports no additional gastrointestinal complaints Genitourinary: Genitourinary: Reports no additional male genitourinary complaints Musculoskeletal: Musculoskeletal: Reports other (Right hip pain) Integumentary/Breasts: Skin/Breast: Reports system reviewed and no additional complaints, except as docu Neurologic: Reports system reviewed and no additional complaints, except as documented Psychiatric: Psychiatric: Reports no additional psychiatric complaints Endocrine: Endocrine: Reports no additional endocrine complaints Hematologic/Lymphatic: Hematologic/Lymphatic: Reports no additional hematologic/lymphatic complaints [facility] Past Medical History Medical History CAD (coronary artery disease) COPD (chronic obstructive pulmonary disease) HTN (hypertension) Hypoxia Limb swelling Lung mass Melanoma Paroxysmal A-fib Weight loss Family History Family History Father Colon cancer Other HTN (hypertension) Surgical History Surgical History Hx of hernia repair Previous back surgery Social History Social History Alcohol intake: never Patient Tobacco Use Status: Former Tobacco user Tobacco use type: Cigarette Years Smoked: 10 years Use of substances other than those prescribed or required for medical reasons: No Advance Directives: No Meds Allergies Allergy/AdvReac Type Severity Reaction Status Date / Time shellfish Allergy Severe gout Uncoded 03/08/21 08:16 Active Medications: Current Medications Acetaminophen (Acetaminophen 325 Mg Tablet) 650 mg PO Q6H PRN PRN Reason: Pain, Mild (Pain Scale 1-3) Last Admin: 11/21/21 15:51 Dose: 650 mg Documented by: Morphine Sulfate (Morphine Sulfate 2 Mg/Ml Cartridge) 2 mg IVPUSH Q3H PRN; Protocol PRN Reason: Pain, Severe (Pain Scale 7-10) Last Admin: 11/21/21 11:12 Dose: 2 mg Documented by: Oxycodone HCl (Oxycodone Hcl Immed Release 5 Mg Tablet) 5 mg PO Q6H PRN PRN Reason: Pain, Severe (Pain Scale 7-10) Last Admin: 11/21/21 15:51 Dose: 5 mg Documented by: Pharmacy Consult (Consult Rx Perform Med Rec) 1 each MISCELLANE ONCE PRN PRN Reason: Consult order Sodium Chloride (0.9 % Sodium Chloride Flush 3 Ml Syringe) 3 ml [facility] Last Admin: 11/21/21 16:14 Dose: 3 ml Documented by: Home Medications Medication Instructions Recorded Confirmed Last Taken Type atorvastatin 20 mg tablet 20 mg PO DAILY 02/14/21 11/21/21 11/20/21 History coenzyme Q10 10 mg capsule 10 mg PO DAILY 02/14/21 11/21/21 11/20/21 History fluticasone furoate 200 1 ea INHALATION DAILY 02/14/21 11/21/21 11/20/21 History mcg-vilanterol 25 mcg/dose inhalation powder latanoprost 0.005 % eye drops 1 drp OPHTHALMIC (EYE) DAILY 02/14/21 11/21/21 11/20/21 History lisinopril 20 mg tablet 20 mg PO DAILY 02/14/21 11/21/21 11/20/21 History multivitamin 1 tab PO DAILY 02/14/21 11/21/21 11/20/21 History umeclidinium 62.5 mcg/actuation 1 inh INHALATION DAILY 02/14/21 11/21/2122 History blister powder for inhalation apixaban 2.5 mg tablet (Eliquis) 2.5 mg PO BID 07/05/21 11/21/21 11/20/21 History hydroxyzine pamoate 25 mg capsule 25 mg PO BEDTIME 07/05/21 11/21/21 11/20/21 History levothyroxine 88 mcg tablet 1 tab PO DAILY 11/21/21 11/21/21 11/20/21 History metoprolol succinate 25 mg 50 mg PO DAILY 11/21/21 11/21/21 11/20/21 History tablet,extended release 24 hr (Toprol XL) Physical Exam Vital Signs: Vital Signs: Last Vital Signs Temp 97.6 F 11/21/21 15:28 Pulse 78 11/21/21 15:28 Resp 18 11/21/21 15:28 BP 122/62 11/21/21 15:28 Pulse Ox 97 11/21/21 15:28 BMI result Body Mass Index 20.0 Const: General: cooperative, comfortable, no acute distress, alert and awake Nutritional Appearance: underweight Orientation/consciousness: patient oriented x3 HEENT: Head: Yes normocephalic and Yes atraumatic Neck: Neck: Yes trachea midline, Yes supple and Yes no JVD Chest: Chest palpation & inspection: normal inspection of the chest Resp: Effort & Inspection: normal respiratory effort Auscultation: no crackles, no wheezes and diminished lung sounds Cardio: Jugular venous distension: no JVD Palpation: normal PMI Rate: regular rate Rhythm: abnormal rhythm with ectopic beats Heart sounds: S1 normal heart sound present, S2 normal heart sound present, no click, no gallops and no murmurs GI: Auscultation: normal bowel sounds Skin: General skin exam: no rashes or lesions noted and ecchymosis Neuro: General: patient oriented x3 and no focal motor deficits Extrem: General: Yes no clubbing, cyanosis or edema Objective Labs and Meds Result diagrams: 11/21/21 05:37 11/21/21 05:37 Lab results: Laboratory Results - last 24 hr 11/21/21 11/21/21 11/21/21 04:56 05:37 05:37 WBC 8.1 RBC 3.73 L Hgb 11.5 L Hct 35.4 L MCV 94.9 MCH 30.8 MCHC 32.5 RDW 13.4 Plt Count 142 L MPV 9.7 Immature Gran % (Auto) 0.4 Neut % (Auto) 77.7 H Lymph % (Auto) 11.5 L [place] % (Auto) 8.3 Eos % (Auto) 1.6 Baso % (Auto) 0.5 Lymph # (Auto) 0.9 L [place] # (Auto) 0.7 Eos # (Auto) 0.1 Baso # (Auto) 0.0 Abs Immat Gran (auto) 0.03 Absolute Neuts (auto) 6.3 Absolute Nucleated RBC 0.000 Nucleated RBC % (auto) 0.0 PT INR Sodium 138 Potassium 4.4 Chloride 101 Carbon Dioxide 29 Anion Gap 12 BUN 22 H Creatinine 1.21 Estim Creat Clear Calc 39.3 Estimated GFR 57 Random Glucose 106 Calcium 9.1 Total Bilirubin 0.5 AST 27 ALT 27 Alkaline Phosphatase 80 Total Protein 5.7 L Albumin 3.7 Urine Color Urine Appearance Urine pH Ur Specific [place] Urine Protein Urine Glucose (UA) Urine Ketones Urine Blood Urine Nitrite Ur Leukocyte Esterase COVID-19 (ESLWYN) Negative COVID-19 Clin Com See Note Blood Type Antibody Screen 11/21/21 11/21/21 11/21/21 06:34 06:58 07:10 WBC RBC Hgb Hct MCV MCH MCHC RDW Plt Count MPV Immature Gran % (Auto) Neut % (Auto) Lymph % (Auto) [place] % (Auto) Eos % (Auto) Baso % (Auto) Lymph # (Auto) [place] # (Auto) Eos # (Auto) Baso # (Auto) Abs Immat Gran (auto) Absolute Neuts (auto) Absolute Nucleated RBC Nucleated RBC % (auto) PT 15.0 H INR 1.3 H Sodium Potassium Chloride Carbon Dioxide Anion Gap BUN Creatinine Estim Creat Clear Calc Estimated GFR Random Glucose Calcium Total Bilirubin AST ALT Alkaline Phosphatase Total Protein Albumin Urine Color YELLOW Urine Appearance CLEAR Urine pH 6.5 Ur Specific [place] 1.010 Urine Protein NEG Urine Glucose (UA) NEG Urine Ketones NEG Urine Blood NEG Urine Nitrite NEG Ur Leukocyte Esterase NEG COVID-19 (SELWYN) COVID-19 Clin Com Blood Type O Negative Antibody Screen NEGATIVE Imaging Radiologist's impression: Impressions Cervical Spine CT 11/21/21 06:20 IMPRESSION: No acute findings identified in the head or cervical spine. Chronic appearing and degenerative changes as noted above. Head CT 11/21/21 06:20 IMPRESSION: No acute findings identified in the head or cervical spine. Chronic appearing and degenerative changes as noted above. Abdomen/Pelvis CT 11/21/21 06:34 IMPRESSION: 1. Minimally displaced intertrochanteric fracture of the proximal right femur. 2. Limited evaluation of the abdomen/pelvis in the absence of intravenous contrast. 3. Significant interval decrease in size of the medial left upper lobe lung mass compared to 03/06/2021. Right upper lobe nodules are similar to prior. 4. Small pleural effusions. 5. Rectum is distended with gas and stool. Chest CT 11/21/21 06:34 IMPRESSION: 1. Minimally displaced intertrochanteric fracture of the proximal right femur. 2. Limited evaluation of the abdomen/pelvis in the absence of intravenous contrast. 3. Significant interval decrease in size of the medial left upper lobe lung mass compared to 03/06/2021. Right upper lobe nodules are similar to prior. 4. Small pleural effusions. 5. Rectum is distended with gas and stool. Assessment and Plan (1) Preop cardiovascular exam: Status: Acute Preoperative cardiovascular risk stratification elderly gentleman with multiple prior cardiac history including CAD, paroxysmal atrial fibrillation as well as generalized poor health with frailty, advanced lung cancer on immunotherapy as well as advanced COPD. Patient present with fall and hip fracture as to undergo hip repair under general anesthesia which is intermediate risk surgery. His oral anticoagulation has been appropriately withheld. Currently is not having any active cardiac symptoms has had no recent active cardiac symptoms and clinically no signs of myocardial ischemia or heart failure. He is currently optimized to undergo surgery with at least intermediate risk for perioperative cardiovascular morbidity mortality. Except for oral anticoagulation therapy, continue all his other medications in the perioperative. . Close hemodynamic monitoring during surgery needs to be pursued. Postoperatively monitor on telemetry. Resume oral anticoagulation as soon as possible post surgery. Intr aoperatively replace fluid loss as well as blood loss and maintain hematocrit above 30 Will sign of the case and will follow if need be. Thank you for allowing us to partake in his care Procedures Date of Service Date of Service: 11/21/21
[2021-11-21] MEDS: Metoprolol Succinate ER 50 MG TAB.ER.24H PO (19:24)
--- NOTE | 2021-11-21 20:43 | MHC.CM.PN ---
CM met with pt in ED OVER with bed assignment pending. IMM /. Will need surgical repair of FX hip. HCP#1/daughter Hillary Cisneros ([phone]), HCP#2/ Alecia Cisneros ([phone], cell [phone]). PCP Dr. Omari Salas. Vax/boosted Moderna. Immunotherapy at [facility] for stage 4 lung cancer. Lives with . Uses walker. No services. Pt will need PT after hip fx surgery. Pt aware he will need PT to get his leg/hip moving. Explained STR vs acute rehab. Unsure if pt has stamina for acute rehab. Pt will speak with his . Pt aware that CM will meet with him. No referrals placed. D/C plan: Inpatient PT. Will need transportation at D/C.
[2021-11-21] MEDS: Latanoprost 0.005 % Ophth Sol 2.5 ML DROPS 1 DROP EYE-BOTH (23:23)
[2021-11-21] MEDS: hydrOXYzine HCL 25 MG TABLET PO (23:50)
[2021-11-22] VITALS (8 sets, daily range): BP systolic 113–161; BP diastolic 58–92; PULSE 74–100; RESP 15–20; TEMP 36.2–37.1; O2SAT 90–98
[2021-11-22] MEDS: 0.9 % Sodium Chloride Flush 3 ML SYRINGE IVFLUSH ×2 (01:12→08:46)
[2021-11-22 06:06] LABS: Hemoglobin 10.7 g/dl (14.0-18.0); Mean Corpuscular Volume 94.6 fL (80.0-98.0); PLT CLUMP 1
[2021-11-22 06:08] LABS: Hematocrit 33.1 % (42.0-52.0); Mean Corpuscular HGB Conc 32.3 g/dl (31.0-36.0); Mean Corpuscular Hemoglobin 30.6 pg (27.0-33.0); Mean Platelet Volume 9.7 fL (9.4-12.4); Red Cell Distribution Width 13.6 % (11.0-16.0)
[2021-11-22 06:09] LABS: Platelet Count 158 X10*3/uL (160-400); White Blood Count 7.9 X10*3/uL (4.8-10.8)
[2021-11-22 06:33] LABS: Anion Gap 11 (12-20); Blood Urea Nitrogen 20 mg/dL (9-16); Calcium 9.2 mg/dL (8.4-10.2); Carbon Dioxide 31 mmol/L (22-29); Chloride 101 mmol/L (96-108); Creatinine Clr Calc Pharmacy 44.9; Estimated Glomerular Filt Rate > 60; Glucose Random 89 mg/dL (60-115); Potassium 4.2 mmol/L (3.3-5.1); Sodium 139 mmol/L (135-145)
[2021-11-22] MEDS: Levothyroxine Sodium 88 MCG TABLET PO (06:38)
[2021-11-22] MEDS: Multivitamin TABLET 1 TAB PO (08:45)
[2021-11-22] MEDS: Metoprolol Succinate ER 50 MG TAB.ER.24H PO (08:45)
--- NOTE | 2021-11-22 08:51 | P.PNOP_ITS ---
Subjective Subjective Date of Service: 11/22/21 Interval history: Patient is resting comfortably in bed. No overnight events. Cardiology saw patient at bedside and deemed intermediate risk and cleared for surgery. No additional complaints. Pain is well managed. Physical Exam Vital Signs: Vital Signs: Last Vital Signs Temp 98.8 F 11/22/21 04:00 Pulse 100 11/22/21 07:53 Resp 16 11/22/21 07:53 BP 142/79 H 11/22/21 07:53 Pulse Ox 90 L 11/22/21 07:53 BMI result Body Mass Index 20.0 Const: General: cooperative, healthy appearing and no acute distress Resp: Effort & Inspection: normal respiratory effort and able to speak in complete sentences Cardio: Rate: regular rate Peripheral pulses: Peripheral pulses 2+ throughout GI: Palpation (GI): Soft to palpation Skin: Lesions: no lesions Rashes: no rashes Extrem: Other: ?Right hip skin intact.? Leg is short and externally rotated.? Pain with logroll.? NVI. Procedures Date of Service Date of Service: 11/22/21 Progress Note: A&P Assessment and plan (1) Closed intertrochanteric fracture: Status: Acute Assessment and Plan: -NPO after midnight -Plan to bring to the OR tomorrow afternoon for IM Nail -Cardiology saw the patient yesterday and deemed intermediate risk with no further workup needed. -Pain management (2) COPD (chronic obstructive pulmonary disease): Status: Acute (3) Hypertension: Status: Acute (4) Lung cancer: Status: Acute (5) CAD (coronary artery disease): Status: Acute (6) HTN (hypertension): Status: Acute Fall Risk Details Current Medications: Current Medications Acetaminophen (Acetaminophen 325 Mg Tablet) 650 mg PO Q6H PRN PRN Reason: Pain, Mild (Pain Scale 1-3) Last Admin: 11/21/21 15:51 Dose: 650 mg Documented by: Atorvastatin Calcium (Atorvastatin Calcium 20 Mg Tablet) 20 mg PO BEDTIME [facility] Fluticasone/Vilanterol (Fluticasone/Vilanterol 200/25 Blst.W.Dev) 1 puff INHALE RDAILY [facility] Hydroxyzine HCl (Hydroxyzine Hcl 25 Mg Tablet) 25 mg PO BEDTIME [facility] Last Admin: 11/21/21 23:50 Dose: 25 mg Documented by: Latanoprost (Latanoprost 0.005 % Ophth Stephania 2.5 Ml Drops) 1 drop EYE-BOTH BEDTIME [facility] Last Admin: 11/21/21 23:23 Dose: 1 drop Documented by: Levothyroxine Sodium (Levothyroxine Sodium 88 Mcg Tablet) 88 mcg PO DAILY@0600 [facility] Last Admin: 11/22/21 06:38 Dose: 88 mcg Documented by: Metoprolol Succinate (Metoprolol Succinate Er 50 Mg Tab.Er.24h) 50 mg PO DAILY [facility]; Protocol Last Admin: 11/22/21 08:45 Dose: 50 mg Documented by: Morphine Sulfate (Morphine Sulfate 2 Mg/Ml Cartridge) 2 mg IVPUSH Q3H PRN; Protocol PRN Reason: Pain, Severe (Pain Scale 7-10) Last Admin: 11/21/21 11:12 Dose: 2 mg Documented by: Multivitamins/Vitamin C (Multivitamin Tablet) 1 tab PO DAILY [facility] Last Admin: 11/22/21 08:45 Dose: 1 tab Documented by: Oxycodone HCl (Oxycodone Hcl Immed Release 5 Mg Tablet) 5 mg PO Q6H PRN PRN Reason: Pain, Severe (Pain Scale 7-10) Last Admin: 11/21/21 23:21 Dose: 5 mg Documented by: Pharmacy Consult (Consult Rx Perform Med Rec) 1 each MISCELLANE ONCE PRN PRN Reason: Consult order Sodium Chloride (0.9 % Sodium Chloride Flush 3 Ml Syringe) 3 ml IVFLUSH QSHIFT [facility] Last Admin: 11/22/21 08:46 Dose: 3 ml Documented by: Time Spent With Patient Time: Total time spent is greater than 50% in coordination of care (as documented) at patient's floor/unit and/or counseling patient: Quality Stroke Does the patient have a stroke diagnosis?: No VTE Prior VTE?: No VTE Risk Level:: Medical - moderate - high VTE Device Contraindication: Treatment Not Indicated VTE Drug Contraindication: N/A - Med Ordered
--- NOTE | 2021-11-22 08:52 | PC.NURSE ---
pt awake and alert, NAD at this time. pt reports some SOB and increased O2 via NC to 3L. Surgery down to see pt, no plan for surgery today given pts thinners, plan to do surgery tomorrow. pt with some pain to the R hip, made aware that he has both Tylenol and morphine available to him.
[2021-11-22] MEDS: Fluticasone/Vilanterol 200/25 BLST.W.DEV 1 PUFF INHALE (08:55)
--- NOTE | 2021-11-22 10:54 | P.PNIM_ITS ---
Subjective Subjective Date of Service: 11/22/21 Interval History: seen and examined this morning follow up for right femur fracture having some cough and some SOB, reports this is chronic - due to underlying lung cancer pain well controlled at rest, increased pain with movement Review of Systems Review of Systems: Yes all other systems are reviewed and are negative Constitutional Constitutional: Denies chills and Denies fever(s) Cardiovascular Cardiovascular: Denies chest pain, Denies palpitations and Reports dyspnea Respiratory Respiratory: Reports cough and Reports dyspnea Gastrointestinal Gastrointestinal: Denies abdominal pain Musculoskeletal right leg pain with movement Endocrine Endocrine: Denies palpitations Physical Exam Vital Signs: Vital Signs: Last Vital Signs Temp 98.8 F 11/22/21 04:00 Pulse 78 11/22/21 08:56 Resp 15 11/22/21 08:56 BP 142/79 H 11/22/21 07:53 Pulse Ox 90 L 11/22/21 07:53 BMI result Body Mass Index 20.0 Const: Other: chronically ill appearing General: cooperative, alert and awake Nutritional Appearance: thin Orientation/consciousness: patient oriented x3 Resp: Other: diminished breath sounds b/l Effort & Inspection: normal respiratory effort and able to speak in complete sentences Cardio: Rate: regular rate Heart sounds: S1 normal heart sound present and S2 normal heart sound present GI: Inspection: No distended Palpation (GI): Soft to palpation and nontender Neuro: General: patient oriented x3 Extrem: Other: no leg edema Objective Data Active Medications Acetaminophen (Acetaminophen 325 Mg Tablet) 650 mg PO Q6H PRN PRN Reason: Pain, Mild (Pain Scale 1-3) Last Admin: 11/21/21 15:51 Dose: 650 mg Documented by: ASPEN Atorvastatin Calcium (Atorvastatin Calcium 20 Mg Tablet) 20 mg PO BEDTIME [facility] Fluticasone/Vilanterol (Fluticasone/Vilanterol 200/25 Blst.W.Dev) 1 puff INHALE RDAILY [facility] Last Admin: 11/22/21 08:55 Dose: 1 puff Documented by: TALI Hydroxyzine HCl (Hydroxyzine Hcl 25 Mg Tablet) 25 mg PO BEDTIME [facility] Last Admin: 11/21/21 23:50 Dose: 25 mg Documented by: RC Latanoprost (Latanoprost 0.005 % Ophth Stephania 2.5 Ml Drops) 1 drop EYE-BOTH BEDTIME [facility] Last Admin: 11/21/21 23:23 Dose: 1 drop Documented by: RC Levothyroxine Sodium (Levothyroxine Sodium 88 Mcg Tablet) 88 mcg PO DAILY@0600 [facility] Last Admin: 11/22/21 06:38 Dose: 88 mcg Documented by: RC Metoprolol Succinate (Metoprolol Succinate Er 50 Mg Tab.Er.24h) 50 mg PO DAILY [facility]; Protocol Last Admin: 11/22/21 08:45 Dose: 50 mg Documented by: ALESSIA Morphine Sulfate (Morphine Sulfate 2 Mg/Ml Cartridge) 2 mg IVPUSH Q3H PRN; Protocol PRN Reason: Pain, Severe (Pain Scale 7-10) Last Admin: 11/21/21 11:12 Dose: 2 mg Documented by: ASPEN Multivitamins/Vitamin C (Multivitamin Tablet) 1 tab PO DAILY [facility] Last Admin: 11/22/21 08:45 Dose: 1 tab Documented by: ALESSIA Oxycodone HCl (Oxycodone Hcl Immed Release 5 Mg Tablet) 5 mg PO Q6H PRN PRN Reason: Pain, Severe (Pain Scale 7-10) Last Admin: 11/21/21 23:21 Dose: 5 mg Documented by: RC Pharmacy Consult (Consult Rx Perform Med Rec) 1 each MISCELLANE ONCE PRN PRN Reason: Consult order Polyethylene Glycol (Polyethylene Glycol 3350 17 Gm Powd.Pack) 17 gm PO DAILY [facility] Senna/Docusate Sodium (Sennosides/Docusate Sodium Tablet) 1 tab PO BEDTIME [facility] Sodium Chloride (0.9 % Sodium Chloride Flush 3 Ml Syringe) 3 ml IVFLUSH QSHIFT [facility] Last Admin: 11/22/21 08:46 Dose: 3 ml Documented by: ALESSIA Labs CBC & Chem 7: 11/22/21 05:54 11/22/21 05:54 Labs: Laboratory Results - last 24 hr 11/22/21 11/22/21 05:54 05:54 MCV 94.6 MCH 30.6 MCHC 32.3 RDW 13.6 Plt Count 158 L MPV 9.7 Absolute Nucleated RBC 0.000 Nucleated RBC % (auto) 0.0 Anion Gap 11 L Estim Creat Clear Calc 44.9 Estimated GFR > 60 Random Glucose 89 Calcium 9.2 Assessment and Plan (1) Closed intertrochanteric fracture: Status: Acute Plan This is an 86 year old male with a PMH of PAF on Metoprolol/Eliquis, CAD s/p PCI x 2, 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 This has resulted in a R minimally displaced intertrocanteric, proximal femur fx. The patient and family have elected for operative repair. 1. R minimally displaced intertrocanteric, proximal femur fx Plan for operative repair - however, he is on OAC with Eliquis with last dose 11/20/21 evening; Seen by ortho - plan for surgery 11/23 seen by cardiology - at least intermediate cardiac risk for planned procedure; likely at least intermediate pulmonary risk as well due to underlying COPD/lung cancer/chronic respiratory failure pain control/bowel regimen 2. Paroxsmal A. Fib/CAD continue metoprolol, statin hold eliquis as above will monitor on telemetry in the lidia-operative period 3. Stage 4 AdenoCa of the Lung/chronic respiratory failure on 2L home o2 [place] [facility] [place] the chest shows improvement of the mass outpatient f/u with oncology 4. Chronic COPD continue his baseline inhalers 5. HTN continue metoprolol hold RAJAN for now 6. Hypothyroidism continue synthroid Full Code DVT pptx, Mechanical for now; pharmacological post surgery Endorses his as HCP Attending: dr. lucio Requires continued inpatient stay due to femur fracture requiring operative fixation Quality Stroke Does the patient have a stroke diagnosis?: No VTE Prior VTE?: No VTE Risk Level:: Medical - moderate - high VTE Device Contraindication: Treatment Not Indicated VTE Drug Contraindication: N/A - Med Ordered
[2021-11-22] MEDS: Sennosides/Docusate Sodium TABLET 1 TAB PO ×2 (11:05→20:29)
--- NOTE | 2021-11-22 16:07 | PC.NURSE ---
Pt having some bigeminy on tele. Now back into afib with occasional PVCs PA aware- added Mg lab. Pt no complaints beyond his hip pain at this time. No cardiac complaints or symptoms
[2021-11-22 16:19] LABS: Magnesium 1.8 mg/dL (1.6-2.6)
[2021-11-22] MEDS: Atorvastatin Calcium 20 MG TABLET PO (20:26)
[2021-11-22] MEDS: hydrOXYzine HCL 25 MG TABLET PO (20:29)
[2021-11-22] MEDS: Latanoprost 0.005 % Ophth Sol 2.5 ML DROPS 1 DROP EYE-BOTH (20:30)
[2021-11-23] VITALS (12 sets, daily range): BP systolic 124–195; BP diastolic 58–90; PULSE 74–115; RESP 13–23; TEMP 36.1–37.6; O2SAT 89–99
[2021-11-23] MEDS: 0.9 % Sodium Chloride Flush 3 ML SYRINGE IVFLUSH ×3 (00:53→19:51)
[2021-11-23] MEDS: Morphine Sulfate 2 MG/ML CARTRIDGE IVPUSH (02:57)
[2021-11-23] MEDS: Levothyroxine Sodium 88 MCG TABLET PO (06:22)
[2021-11-23 07:04] LABS: Hematocrit 33.4 % (42.0-52.0); Hemoglobin 10.8 g/dl (14.0-18.0); Mean Corpuscular HGB Conc 32.3 g/dl (31.0-36.0); Mean Corpuscular Hemoglobin 30.5 pg (27.0-33.0); Mean Corpuscular Volume 94.4 fL (80.0-98.0); Mean Platelet Volume 10.3 fL (9.4-12.4); Platelet Count 141 X10*3/uL (160-400); Red Blood Count 3.54 X10*6/uL (4.60-5.80); Red Cell Distribution Width 13.4 % (11.0-16.0); White Blood Count 9.2 X10*3/uL (4.8-10.8)
[2021-11-23 07:22] LABS: Anion Gap 11 (12-20); Blood Urea Nitrogen 22 mg/dL (9-16); Calcium 9.2 mg/dL (8.4-10.2); Carbon Dioxide 31 mmol/L (22-29); Chloride 100 mmol/L (96-108); Creatinine Clr Calc Pharmacy 46.6; Estimated Glomerular Filt Rate > 60; Glucose Random 119 mg/dL (60-115); Potassium 4.1 mmol/L (3.3-5.1); Sodium 138 mmol/L (135-145)
[2021-11-23] MEDS: Metoprolol Succinate ER 50 MG TAB.ER.24H PO (09:41)
--- NOTE | 2021-11-23 12:13 | P.PNIM_ITS ---
Subjective Subjective Date of Service: 11/23/21 Interval History: Seen and examined this morning For hip fracture No overnight events. No specific complaints this morning Denies any shortness of breath, cough at baseline. No fever no chills pain under adequate control Review of Systems Review of Systems: Yes all other systems are reviewed and are negative Constitutional Constitutional: Denies chills and Denies fever(s) Cardiovascular Cardiovascular: Denies chest pain, Denies palpitations and Denies dyspnea Respiratory Respiratory: Reports cough and Denies dyspnea Gastrointestinal Gastrointestinal: Denies abdominal pain and Denies vomiting Endocrine Endocrine: Denies palpitations Physical Exam Vital Signs: Vital Signs: Last Vital Signs Temp 97 F 11/23/21 11:55 Pulse 80 11/23/21 11:55 Resp 18 11/23/21 11:55 BP 160/90 H 11/23/21 11:55 Pulse Ox 94 11/23/21 11:55 BMI result Body Mass Index 20.0 Const: Other: chronically ill appearing General: cooperative, alert and awake Nutritional Appearance: thin Orientation/consciousness: patient oriented x3 Chest: Other: port right chest wall Resp: Other: diminished breath sounds b/l Effort & Inspection: normal respiratory effort and able to speak in complete sentences Cardio: Rate: regular rate Heart sounds: S1 normal heart sound present and S2 normal heart sound present GI: Inspection: No distended Palpation (GI): Soft to palpation and nontender : Other: cannon draining yellow urine Neuro: General: patient oriented x3 Extrem: Other: no leg edema Objective Data Active Medications Acetaminophen (Acetaminophen 325 Mg Tablet) 650 mg PO Q6H PRN PRN Reason: Pain, Mild (Pain Scale 1-3) Last Admin: 11/21/21 15:51 Dose: 650 mg Documented by: ASPEN Atorvastatin Calcium (Atorvastatin Calcium 20 Mg Tablet) 20 mg PO BEDTIME [facility] Last Admin: 11/22/21 20:26 Dose: 20 mg Documented by: TUMASY Fluticasone/Vilanterol (Fluticasone/Vilanterol 200/25 Blst.W.Dev) 1 puff INHALE RDAILY [facility] Last Admin: 11/23/21 12:07 Dose: Not Given Documented by: HENRY Non-Admin Reason: Med Not Available Hydroxyzine HCl (Hydroxyzine Hcl 25 Mg Tablet) 25 mg PO BEDTIME [facility] Last Admin: 11/22/21 20:29 Dose: 25 mg Documented by: MARLEY Cefazolin Sodium/Dextrose (Ancef) 2 gm in 50 mls @ 100 mls/hr IV PREOP ONE Stop: 11/23/21 12:29 Latanoprost (Latanoprost 0.005 % Ophth Stephania 2.5 Ml Drops) 1 drop EYE-BOTH BEDTIME [facility] Last Admin: 11/22/21 20:30 Dose: 1 drop Documented by: MARLEY Levothyroxine Sodium (Levothyroxine Sodium 88 Mcg Tablet) 88 mcg PO DAILY@0600 [facility] Last Admin: 11/23/21 06:22 Dose: 88 mcg Documented by: RAINE Metoprolol Succinate (Metoprolol Succinate Er 50 Mg Tab.Er.24h) 50 mg PO DAILY [facility]; Protocol Last Admin: 11/23/21 09:41 Dose: 50 mg Documented by: AVELINA Morphine Sulfate (Morphine Sulfate 2 Mg/Ml Cartridge) 2 mg IVPUSH Q3H PRN; Protocol PRN Reason: Pain, Severe (Pain Scale 7-10) Last Admin: 11/23/21 02:57 Dose: 2 mg Documented by: RAINE Multivitamins/Vitamin C (Multivitamin Tablet) 1 tab PO DAILY [facility] Last Admin: 11/23/21 09:41 Dose: Not Given Documented by: AVELINA Non-Admin Reason: NPO Oxycodone HCl (Oxycodone Hcl Immed Release 5 Mg Tablet) 5 mg PO Q6H PRN PRN Reason: Pain, Severe (Pain Scale 7-10) Last Admin: 11/21/21 23:21 Dose: 5 mg Documented by: RC Pharmacy Consult (Consult Rx Perform Med Rec) 1 each MISCELLANE ONCE PRN PRN Reason: Consult order Polyethylene Glycol (Polyethylene Glycol 3350 17 Gm Powd.Pack) 17 gm PO DAILY [facility] Last Admin: 11/23/21 09:41 Dose: Not Given Documented by: AVELINA Non-Admin Reason: NPO Senna/Docusate Sodium (Sennosides/Docusate Sodium Tablet) 1 tab PO BEDTIME [facility] Last Admin: 11/22/21 20:29 Dose: 1 tab Documented by: MARLEY Sodium Chloride (0.9 % Sodium Chloride Flush 3 Ml Syringe) 3 ml IVFLUSH QSHIFT [facility] Last Admin: 11/23/21 09:40 Dose: 3 ml Documented by: AVELINA Labs CBC & Chem 7: 11/23/21 06:31 11/23/21 06:31 Labs: Laboratory Results - last 24 hr 11/22/21 11/23/21 11/23/21 05:54 06:31 06:31 MCV 94.4 MCH 30.5 MCHC 32.3 RDW 13.4 Plt Count 141 L MPV 10.3 Absolute Nucleated RBC 0.000 Nucleated RBC % (auto) 0.0 Anion Gap 11 L Estim Creat Clear Calc 46.6 Estimated GFR > 60 Random Glucose 119 H Calcium 9.2 Magnesium 1.8 Assessment and Plan (1) Closed intertrochanteric fracture: Status: Acute (2) COPD (chronic obstructive pulmonary disease): Status: Acute (3) Lung cancer: Status: Acute Plan This is an 86 year old male with a PMH of PAF on Metoprolol/Eliquis, CAD s/p PCI x 2, 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 This has resulted in a R minimally displaced intertrocanteric, proximal femur fx. The patient and family have elected for operative repair. R minimally displaced intertrocanteric, proximal femur fx Plan for operative repair -on OAC with Eliquis with last dose 11/20/21 evening Seen by ortho - plan for surgery today seen by cardiology - at least intermediate cardiac risk for planned procedure; likely at least intermediate pulmonary risk as well due to underlying COPD/lung cancer/chronic respiratory failure pain control/bowel regimen Paroxsmal A. Fib/CAD continue metoprolol, statin hold eliquis as above - resume post-operatively will monitor on telemetry in the lidia-operative period Stage 4 AdenoCa of the Lung/chronic respiratory failure on 2L home o2 receiving immunotherapy at [place] CT of the chest shows improvement of the mass outpatient f/u with oncology Chronic COPD continue his baseline inhalers HTN BP trending up continue metoprolol hold RAJAN for now - consider resuming after surgery Hypothyroidism continue synthroid HLD continue statin Full Code DVT pptx, Mechanical for now; pharmacological post surgery Endorses his as HCP Attending: dr. lucio Requires continued inpatient stay due to femur fracture requiring operative fixa tion Quality Stroke Does the patient have a stroke diagnosis?: No VTE Prior VTE?: No VTE Risk Level:: Medical - moderate - high VTE Device Contraindication: Treatment Not Indicated VTE Drug Contraindication: N/A - Med Ordered
--- NOTE | 2021-11-23 12:52 | MHC.CLN ---
RE: CONSULT PT WITH INCREASED NUTRITION RISK R/T LUNG CA. PT COMPLAINS OF POOR EATING HABITS AND WT LOSS ALTHOUGH PREVIOUS WT HX REVEALS UBW 63.5KG 03/19/21. PT DOES NOT TRIGGER FOR SIGNIFICANT WT LOSS AT THIS TIME UNABLE TO PERFORM NFPE R/T PT IN SURGERY FOR HIP FX DIET RX: NPO-FOR SX WHEN DIET TO ADVANCE; RECOMMEND ADDING ENSURE TID TO INCREASE KCALS SUPP TO PROVIDE 1050KCALS, 60G PROTEIN MONITOR PO INTAKE CLOSELY SEE ALSO FULL CLINICAL NUTRITION ASSESSMENT
--- NOTE | 2021-11-23 13:02 | P.CONAN_ITS ---
HPI - Anesthesia Eval Consult details Narrative: Right intertrochanteric fracture PMFSH Active Problems Active Problems: All Active Problems (Updated 11/21/21 @ 17:30 by Anish Carter MD) Preop cardiovascular exam (Acute) Closed intertrochanteric fracture (Acute) COPD (chronic obstructive pulmonary disease) (Acute) Hypertension (Acute) Lung cancer (Acute) CAD (coronary artery disease) (Acute) HTN (hypertension) (Acute) Syncope (Acute) Lung mass (Acute) Limb swelling (Acute) Weight loss (Acute) Hypoxia (Acute) COPD (chronic obstructive pulmonary disease) (Acute) Past Medical History Medical History CAD (coronary artery disease) COPD (chronic obstructive pulmonary disease) HTN (hypertension) Hypoxia Limb swelling Lung mass Melanoma Paroxysmal A-fib Weight loss Family History Family History Father Colon cancer Other HTN (hypertension) Family history of problems with anesthesia: No Surgical History Surgical History Hx of hernia repair Previous back surgery History of Problems with Anesthesia: No Social History Social History Household Members: Spouse Housing: Apartment Do you presently have visiting nurse or other home services: No Alcohol intake: never Patient Tobacco Use Status: Never used Tobacco Tobacco use type: Cigarette Years Smoked: 10 years service: No Current occupational status: retired Meds Allergies Allergy/AdvReac Type Severity Reaction Status Date / Time shellfish Allergy Severe gout Uncoded 03/08/21 08:16 Active Medications: Current Medications Acetaminophen (Acetaminophen 325 Mg Tablet) 650 mg PO Q6H PRN PRN Reason: Pain, Mild (Pain Scale 1-3) Last Admin: 11/21/21 15:51 Dose: 650 mg Documented by: Atorvastatin Calcium (Atorvastatin Calcium 20 Mg Tablet) 20 mg PO BEDTIME [facility] Last Admin: 11/22/21 20:26 Dose: 20 mg Documented by: Fluticasone/Vilanterol (Fluticasone/Vilanterol 200/25 Blst.W.Dev) 1 puff INHALE RDAILY [facility] Last Admin: 11/23/21 12:07 Dose: Not Given Documented by: Hydroxyzine HCl (Hydroxyzine Hcl 25 Mg Tablet) 25 mg PO BEDTIME [facility] Last Admin: 11/22/21 20:29 Dose: 25 mg Documented by: Latanoprost (Latanoprost 0.005 % Ophth Stephania 2.5 Ml Drops) 1 drop EYE-BOTH BEDTIME [facility] Last Admin: 11/22/21 20:30 Dose: 1 drop Documented by: Levothyroxine Sodium (Levothyroxine Sodium 88 Mcg Tablet) 88 mcg PO DAILY@0600 [facility] Last Admin: 11/23/21 06:22 Dose: 88 mcg Documented by: Metoprolol Succinate (Metoprolol Succinate Er 50 Mg Tab.Er.24h) 50 mg PO DAILY [facility]; Protocol Last Admin: 11/23/21 09:41 Dose: 50 mg Documented by: Morphine Sulfate (Morphine Sulfate 2 Mg/Ml Cartridge) 2 mg IVPUSH Q3H PRN; Protocol PRN Reason: Pain, Severe (Pain Scale 7-10) Last Admin: 11/23/21 02:57 Dose: 2 mg Documented by: Multivitamins/Vitamin C (Multivitamin Tablet) 1 tab PO DAILY [facility] Last Admin: 11/23/21 09:41 Dose: Not Given Documented by: Oxycodone HCl (Oxycodone Hcl Immed Release 5 Mg Tablet) 5 mg PO Q6H PRN PRN Reason: Pain, Severe (Pain Scale 7-10) Last Admin: 11/21/21 23:21 Dose: 5 mg Documented by: Pharmacy Consult (Consult Rx Perform Med Rec) 1 each MISCELLANE ONCE PRN PRN Reason: Consult order Polyethylene Glycol (Polyethylene Glycol 3350 17 Gm Powd.Pack) 17 gm PO DAILY [facility] Last Admin: 11/23/21 09:41 Dose: Not Given Documented by: Senna/Docusate Sodium (Sennosides/Docusate Sodium Tablet) 1 tab PO BEDTIME [facility] Last Admin: 11/22/21 20:29 Dose: 1 tab Documented by: Sodium Chloride (0.9 % Sodium Chloride Flush 3 Ml Syringe) 3 ml IVFLUSH QSHIFT [facility] Last Admin: 11/23/21 09:40 Dose: 3 ml Documented by: Home Medications Medication Instructions Recorded Confirmed Last Taken Type atorvastatin 20 mg tablet 20 mg PO DAILY 02/14/21 11/21/21 11/20/21 History coenzyme Q10 10 mg capsule 10 mg PO DAILY 02/14/21 11/21/21 11/20/21 History fluticasone furoate 200 1 ea INHALATION DAILY 02/14/21 11/21/21 11/20/21 History mcg-vilanterol 25 mcg/dose inhalation powder latanoprost 0.005 % eye drops 1 drp OPHTHALMIC (EYE) DAILY 02/14/21 11/21/21 11/20/21 History lisinopril 20 mg tablet 20 mg PO DAILY 02/14/21 11/21/21 11/20/21 History multivitamin 1 tab PO DAILY 02/14/21 11/21/21 11/20/21 History umeclidinium 62.5 mcg/actuation 1 inh INHALATION DAILY 02/14/21 11/21/21 11/20/21 History blister powder for inhalation apixaban 2.5 mg tablet (Eliquis) 2.5 mg PO BID 07/05/21 11/21/21 11/20/21 History hydroxyzine pamoate 25 mg capsule 25 mg PO BEDTIME 07/05/21 11/21/21 11/20/21 History levothyroxine 88 mcg tablet 1 tab PO DAILY 11/21/21 11/21/21 11/20/21 History metoprolol succinate 25 mg 50 mg PO DAILY 11/21/21 11/21/21 11/20/21 History tablet,extended release 24 hr (Toprol XL) Exam Exam Date and Time: November 23, 2021 1302 Height,Weight and Vital Signs: Height 5 ft 10 in Weight 63.503 kg Last Vital Signs Temp 97 F 11/23/21 11:55 Pulse 80 11/23/21 11:55 Resp 18 11/23/21 11:55 BP 160/90 H 11/23/21 11:55 Pulse Ox 94 11/23/21 11:55 Pertinent Lab Results Pertinent Lab Results: Laboratory Tests 11/21/21 11/21/21 11/21/21 04:56 05:37 05:37 WBC 8.1 RBC 3.73 L Hgb 11.5 L Hct 35.4 L MCV 94.9 MCH 30.8 MCHC 32.5 RDW 13.4 Plt Count 142 L MPV 9.7 Immature Gran % (Auto) 0.4 Neut % (Auto) 77.7 H Lymph % (Auto) 11.5 L [place] % (Auto) 8.3 Eos % (Auto) 1.6 Baso % (Auto) 0.5 Lymph # (Auto) 0.9 L [place] # (Auto) 0.7 Eos # (Auto) 0.1 Baso # (Auto) 0.0 Abs Immat Gran (auto) 0.03 Absolute Neuts (auto) 6.3 Absolute Nucleated RBC 0.000 Nucleated RBC % (auto) 0.0 PT INR Sodium 138 Potassium 4.4 Chloride 101 Carbon Dioxide 29 Anion Gap 12 BUN 22 H Creatinine 1.21 Estim Creat Clear Calc 39.3 Estimated GFR 57 Random Glucose 106 Calcium 9.1 Magnesium Total Bilirubin 0.5 AST 27 ALT 27 Alkaline Phosphatase 80 Total Protein 5.7 L Albumin 3.7 Urine Color Urine Appearance Urine pH Ur Specific [place] Urine Protein Urine Glucose (UA) Urine Ketones Urine Blood Urine Nitrite Ur Leukocyte Esterase COVID-19 ([facility]WYN) Negative COVID-19 Clin Com See Note Blood Type Antibody Screen 11/21/21 11/21/21 11/21/21 06:34 06:58 07:10 WBC RBC Hgb Hct MCV MCH MCHC RDW Plt Count MPV Immature Gran % (Auto) Neut % (Auto) Lymph % (Auto) [place] % (Auto) Eos % (Auto) Baso % (Auto) Lymph # (Auto) [place] # (Auto) Eos # (Auto) Baso # (Auto) Abs Immat Gran (auto) Absolute Neuts (auto) Absolute Nucleated RBC Nucleated RBC % (auto) PT 15.0 H INR 1.3 H Sodium Potassium Chloride Carbon Dioxide Anion Gap BUN Creatinine Estim Creat Clear Calc Estimated GFR Random Glucose Calcium Magnesium Total Bilirubin AST ALT Alkaline Phosphatase Total Protein Albumin Urine Color YELLOW Urine Appearance CLEAR Urine pH 6.5 Ur Specific [place] 1.010 Urine Protein NEG Urine Glucose (UA) NEG Urine Ketones NEG Urine Blood NEG Urine Nitrite NEG Ur Leukocyte Esterase NEG COVID-19 ([facility]WYN) COVID-19 Clin Com Blood Type O Negative Antibody Screen NEGATIVE 11/22/21 11/22/21 11/23/21 05:54 05:54 06:31 WBC 7.9 9.2 RBC 3.50 L 3.54 L Hgb 10.7 L 10.8 L Hct 33.1 L 33.4 L MCV 94.6 94.4 MCH 30.6 30.5 MCHC 32.3 32.3 RDW 13.6 13.4 Plt Count 158 L 141 L MPV 9.7 10.3 Immature Gran % (Auto) Neut % (Auto) Lymph % (Auto) [place] % (Auto) Eos % (Auto) Baso % (Auto) Lymph # (Auto) [place] # (Auto) Eos # (Auto) Baso # (Auto) Abs Immat Gran (auto) Absolute Neuts (auto) Absolute Nucleated RBC 0.000 0.000 Nucleated RBC % (auto) 0.0 0.0 PT INR Sodium 139 Potassium 4.2 Chloride 101 Carbon Dioxide 31 H Anion Gap 11 L BUN 20 H Creatinine 1.06 Estim Creat Clear Calc 44.9 Estimated GFR > 60 Random Glucose 89 Calcium 9.2 Magnesium 1.8 Total Bilirubin AST ALT Alkaline Phosphatase Total Protein Albumin Urine Color Urine Appearance Urine pH Ur Specific [place] Urine Protein Urine Glucose (UA) Urine Ketones Urine Blood Urine Nitrite Ur Leukocyte Esterase COVID-19 ([facility]) COVID-[employer] Blood Type Antibody Screen 11/23/21 06:31 WBC RBC Hgb Hct MCV MCH MCHC RDW Plt Count MPV Immature Gran % (Auto) Neut % (Auto) Lymph % (Auto) [place] % (Auto) Eos % (Auto) Baso % (Auto) Lymph # (Auto) [place] # (Auto) Eos # (Auto) Baso # (Auto) Abs Immat Gran (auto) Absolute Neuts (auto) Absolute Nucleated RBC Nucleated RBC % (auto) PT INR Sodium 138 Potassium 4.1 Chloride 100 Carbon Dioxide 31 H Anion Gap 11 L BUN 22 H Creatinine 1.02 Estim Creat Clear Calc 46.6 Estimated GFR > 60 Random Glucose 119 H Calcium 9.2 Magnesium Total Bilirubin AST ALT Alkaline Phosphatase Total Protein Albumin Urine Color Urine Appearance Urine pH Ur Specific [place] Urine Protein Urine Glucose (UA) Urine Ketones Urine Blood Urine Nitrite Ur Leukocyte Esterase COVID-19 ([facility]WYN) COVID-19 [employer] Com Blood Type Antibody Screen Airway Mallampati Class: III TM Dist: >3cm Neck ROM: Full Loose/Missing/Broken Teeth: Yes Heart: [id number] Lungs: decrease breath sounds b/l Assessment and Plan Assessment Anesthesia Assessment: Anesthesia Plan Discussed and Chart Reviewed Final Anesthetic Review Family History of Problems with Anesthesia: No History of Problems with Anesthesia: No NPO: Yes ASA Class: IV Final Preanesthetic Review: No Changes in Pt Med Stat, Meds/Allgs Chart Reviewed, Consent Obtained/Reviewed and Anes Risks/Benef Reviewed Patient Risk: High Procedure Risk: Intermediate Assessment/Block/Sedation in SS: Assess/Block/Sedation-SS Anesthetic Plan Anesthetic Plan: GA, Spinal and Agree w/ Assess. and Plan Disposition: Standard PACU
--- NOTE | 2021-11-23 14:51 | MHC.SHP ---
Pre-Procedural Eval Section A Date of Service: 11/23/21 The patient is an INPATIENT: No Changes since office visit: No Cold of Flu in the past 2 weeks, No New Medical Problems, No Changes in Medication and No Patient answered all questions The History & Physical has been completed within 30 days and I have reviewed it.: Yes Section B Chief Complaint: fall hip fracture Allergies: Allergies Allergy/AdvReac Type Severity Reaction Status Date / Time shellfish Allergy Severe gout Uncoded 03/08/21 08:16 Plan I have reviewed the history and physical and performed a pertinent physical examination on my patient. No changes have occurred unless specified.
--- NOTE | 2021-11-23 14:51 | PM.OP ---
Brief Operative Note Date of Service: 11/23/21 Pre-op diagnosis: right IT fracture Post-op diagnosis: same Procedure: Right hip IMN Implants: Louin [id number] deg with 105 mm hip screw Surgeon: Kevin Fowler MD Anesthesia: local and spinal Was an Chemical Lab Technician used for this Procedure?: Yes Chemical Lab Technician: Annette Simms Estimated blood loss (mL): 100 IV fluids (mL): 600 Pathology: none sent Condition: stable Disposition: PACU
--- NOTE | 2021-11-23 14:59 | P.OP_ITS ---
Operative Note Operative Note Date of Service: 11/23/21 Narrative: Date of Service: 11/23/21 Pre-op diagnosis: right IT fracture Post-op diagnosis: same Procedure: Right hip IMN Implants: [place] [id number] deg with 105 mm hip screw Surgeon: Kevin Fowler MD Anesthesia: local and spinal Was an Treatment Technician used for this Procedure?: Yes Treatment Technician: Annette Simms Estimated blood loss (mL): 100 IV fluids (mL): 600 Pathology: none sent Condition: stable Disposition: PACU Procedure in detail: Patient was brought to the operating room and prepped and draped in standard sterile fashion. Time-out was called to identify proper site procedure proper surgeon and IV antibiotics per weight were administered. She was positioned on the fracture table and a traction and slight internal rotation were performed and biplanar fluoroscopy confirmed initial fracture reduction.This was a low neck/high IT. I then made a stab incision proximal to the greater trochanter in using a guidewire made a entry point just lateral to the tip of the greater trochanter and placed a guidewire into the femoral metadiaphysis. I then over-reamed with 15 mm Reamer placed my ball-tip guidewire down distally in the femur and measured my length. I selected a [id number] 125deg nail and reamed up to a 13. I then placed the nail. I then turned my attention to the hip screw where I used a guidewire and a tip apex distance of less than 1.5 measured a 110deg hip screw. I then pre drilled and placed a hip screw using biplanar fluoroscopy. Once I was happy with the position of the hip screw I turned my attention to the distal aspect of the nail. I was happy with the nail position and a distal interlock was NOT placed. I then removed all I then placed my set screw proximally and removed all extraneous instrumentation. Final biplanar radiographs were taken. I was satisfied with the position of the hardware and the fracture reduction. I think copiously irrigated closed with absorbable sutures pedro and injected 30 mL of into the area of the incisions. Traction was let down patient was placed in sterile dressing awakened from anesthesia brought to recovery room stable condition there were no known complications.
[2021-11-23] MEDS: hydrOXYzine HCL 25 MG TABLET PO (19:51)
[2021-11-23] MEDS: Sennosides/Docusate Sodium TABLET 1 TAB PO (19:51)
[2021-11-23] MEDS: Atorvastatin Calcium 20 MG TABLET PO (19:51)
[2021-11-23] MEDS: Latanoprost 0.005 % Ophth Sol 2.5 ML DROPS 1 DROP EYE-BOTH (19:54)
[2021-11-24] VITALS (7 sets, daily range): BP systolic 112–177; BP diastolic 58–99; PULSE 70–105; RESP 14–18; TEMP 36.7–37.4; O2SAT 94–98
[2021-11-24] MEDS: hydrALAZINE HCl 20 MG/ML VIAL 5 MG IVPUSH (00:52)
[2021-11-24] MEDS: oxyCODONE HCl Immed Release 5 MG TABLET PO ×2 (00:55→08:48)
--- NOTE | 2021-11-24 02:09 | PC.NURSE ---
P: Pt with elevated BP's. Around 2300 BP was 195/87 with HR 115. I: Pt is post op hip surgery. Pt denies pain. Pt restless, reaching in the air and slightly confused. Grabbing his hip and grimacing with movement. MD made aware of BP. Order for Apresoline 5mg IV STAT dose. Also given PRN 5mg PO oxycodone. Repositioned. E: Blood pressure rechecked after about one hour. BP trended down to 128/64. HR 98. Pt still awake and slightly restless. No complaints of pain. Will continue to monitor and re-assess.
[2021-11-24] MEDS: Levothyroxine Sodium 88 MCG TABLET PO (04:37)
[2021-11-24 07:23] LABS: Anion Gap 14 (12-20); Blood Urea Nitrogen 23 mg/dL (9-16); Calcium 9.2 mg/dL (8.4-10.2); Carbon Dioxide 27 mmol/L (22-29); Chloride 102 mmol/L (96-108); Creatinine Clr Calc Pharmacy 46.6; Estimated Glomerular Filt Rate > 60; Glucose Random 116 mg/dL (60-115); Sodium 139 mmol/L (135-145)
[2021-11-24 07:31] LABS: Mean Corpuscular HGB Conc 32.3 g/dl (31.0-36.0); Mean Corpuscular Hemoglobin 30.8 pg (27.0-33.0); Mean Corpuscular Volume 95.4 fL (80.0-98.0); Mean Platelet Volume 10.7 fL (9.4-12.4); Platelet Count 123 X10*3/uL (160-400); Red Blood Count 3.25 X10*6/uL (4.60-5.80); Red Cell Distribution Width 13.5 % (11.0-16.0); White Blood Count 8.7 X10*3/uL (4.8-10.8)
[2021-11-24] MEDS: Metoprolol Succinate ER 50 MG TAB.ER.24H PO (08:48)
[2021-11-24] MEDS: Multivitamin TABLET 1 TAB PO (08:48)
[2021-11-24] MEDS: polyethylene glycoL 3350 17 GM POWD.PACK PO (08:48)
[2021-11-24] MEDS: 0.9 % Sodium Chloride Flush 3 ML SYRINGE IVFLUSH ×3 (08:48→20:05)
--- NOTE | 2021-11-24 10:31 | HO.POSTANES ---
Post Anesthesia Evaluation Post Anesthesia Evaluation Vital Signs: Vital Signs Temp Pulse Resp BP Pulse Ox 11/24/21 07:54 149/58 H 11/24/21 07:29 99.0 F 97 18 140/72 H 94 11/24/21 03:59 98.1 F 105 H 14 177/99 H 96 11/24/21 01:38 128/64 11/23/21 23:29 99.6 F 115 H 23 H 195/87 H 95 Anesthesia: Spinal Mental Status: Awake Pain Control: Satisfactory Nausea/Vomiting: None Hydration: Adequate Anesthesia-Related Issues: No Anes. Related Issues
--- NOTE | 2021-11-24 14:23 | P.PNIM_ITS ---
Subjective Subjective Date of Service: 11/24/21 <CAYDEN Thomas - Last Filed: 11/24/21 14:32> 11/25/21 <Que Webber DO - Last Filed: 11/25/21 07:54> Interval History: Seen and examined this morning Seems more fatigued, reports he is not feeling well this morning Pain adequately controlled at this time Chronic dyspnea, cough productive of ?mucus? - reports no change from baseline <CAYDEN Thomas - Last Filed: 11/24/21 14:32> Review of Systems Review of Systems: Yes all other systems are reviewed and are negative <CAYDEN Thomas - Last Filed: 11/24/21 14:32> Constitutional Constitutional: Denies chills and Denies fever(s) <CAYDEN Thomas - Last Filed: 11/24/21 14:32> Cardiovascular Cardiovascular: Denies chest pain, Denies palpitations and Reports dyspnea <CAYDEN Thomas - Last Filed: 11/24/21 14:32> Respiratory Respiratory: Reports cough and Reports dyspnea <CAYDEN Thomas - Last Filed: 11/24/21 14:32> Gastrointestinal Gastrointestinal: Denies abdominal pain, Denies nausea and Denies vomiting <CAYDEN Thomas - Last Filed: 11/24/21 14:32> Endocrine Endocrine: Denies palpitations <CAYDEN Thomas - Last Filed: 11/24/21 14:32> Physical Exam Vital Signs: Vital Signs: Last Vital Signs Temp 99.4 F 11/24/21 11:13 Pulse 86 11/24/21 11:13 Resp 18 11/24/21 11:13 BP 126/61 11/24/21 11:13 Pulse Ox 94 11/24/21 11:13 BMI result Body Mass Index 20.0 <CAYDEN Thomas Last Filed: 11/24/21 14:32> Const: Other: chronically ill appearing appears fatigued this morning, more lethargic <CAYDEN Thomas Last Filed: 11/24/21 14:32> General: cooperative and awake <CAYDEN Thomas - Last Filed: 11/24/21 14:32> Nutritional Appearance: thin <CAYDEN Thomas - Last Filed: 11/24/21 14:32> Chest: Other: port right chest wall <CAYDEN Thomas - Last Filed: 11/24/21 14:32> Resp: Other: diminished breath sounds b/l <CAYDEN Thomas - Last Filed: 11/24/21 14:32> Effort & Inspection: normal respiratory effort and able to speak in complete sentences <CAYDEN Thomas - Last Filed: 11/24/21 14:32> Cardio: Rate: regular rate <CAYDEN Thomas - Last Filed: 11/24/21 14:32> Heart sounds: S1 normal heart sound present and S2 normal heart sound present <CAYDEN Thomas - Last Filed: 11/24/21 14:32> GI: Inspection: No distended <CAYDEN Thomas - Last Filed: 11/24/21 14:32> Palpation (GI): Soft to palpation and nontender <CAYDEN Thomas - Last Filed: 11/24/21 14:32> : Other: cannon draining yellow urine <CAYDEN Thomas - Last Filed: 11/24/21 14:32> Extrem: Other: no leg edema ; right hip bandage without staining <CAYDEN Thomas - Last Filed: 11/24/21 14:32> Objective Data Active Medications Acetaminophen (Acetaminophen 325 Mg Tablet) 650 mg PO Q6H PRN PRN Reason: Pain, Mild (Pain Scale 1-3) Last Admin: 11/21/21 15:51 Dose: 650 mg Documented by: ASPEN Atorvastatin Calcium (Atorvastatin Calcium 20 Mg Tablet) 20 mg PO BEDTIME [facility] Last Admin: 11/23/21 19:51 Dose: 20 mg Documented by: ANTOIC Fluticasone/Vilanterol (Fluticasone/Vilanterol 200/25 Blst.W.Dev) 1 puff INHALE RDAILY [facility] Last Admin: 11/24/21 07:44 Dose: Not Given Documented by: KIRTI Non-Admin Reason: Med Not Available Hydroxyzine HCl (Hydroxyzine Hcl 25 Mg Tablet) 25 mg PO BEDTIME [facility] Last Admin: 11/23/21 19:51 Dose: 25 mg Documented by: RUDOLPH Cefazolin Sodium/Dextrose (Ancef) 2 gm in 50 mls @ 100 mls/hr IV POSTOP [facility] Latanoprost (Latanoprost 0.005 % Ophth Stephania 2.5 Ml Drops) 1 drop EYE-BOTH BEDTIME [facility] Last Admin: 11/23/21 19:54 Dose: 1 drop Documented by: RUDOLPH Levothyroxine Sodium (Levothyroxine Sodium 88 Mcg Tablet) 88 mcg PO DAILY@0600 [facility] Last Admin: 11/24/21 04:37 Dose: 88 mcg Documented by: RUDOLPH Metoprolol Succinate (Metoprolol Succinate Er 50 Mg Tab.Er.24h) 50 mg PO DAILY [facility]; Protocol Last Admin: 11/24/21 08:48 Dose: 50 mg Documented by: GI Morphine Sulfate (Morphine Sulfate 2 Mg/Ml Cartridge) 2 mg IVPUSH Q3H PRN; Protocol PRN Reason: Pain, Severe (Pain Scale 7-10) Last Admin: 11/23/21 02:57 Dose: 2 mg Documented by: RAINE Multivitamins/Vitamin C (Multivitamin Tablet) 1 tab PO DAILY [facility] Last Admin: 11/24/21 08:48 Dose: 1 tab Documented by: GI Oxycodone HCl (Oxycodone Hcl Immed Release 5 Mg Tablet) 5 mg PO Q6H PRN PRN Reason: Pain, Severe (Pain Scale 7-10) Last Admin: 11/24/21 08:48 Dose: 5 mg Documented by: GI Pharmacy Consult (Consult Rx Perform Med Rec) 1 each MISCELLANE ONCE PRN PRN Reason: Consult order Polyethylene Glycol (Polyethylene Glycol 3350 17 Gm Powd.Pack) 17 gm PO DAILY [facility] Last Admin: 11/24/21 08:48 Dose: 17 gm Documented by: GI Senna/Docusate Sodium (Sennosides/Docusate Sodium Tablet) 1 tab PO BEDTIME [facility] Last Admin: 11/23/21 19:51 Dose: 1 tab Documented by: RUDOLPH Sodium Chloride (0.9 % Sodium Chloride Flush 3 Ml Syringe) 3 ml IVFLUSH QSHIFT [facility] Last Admin: 11/24/21 08:48 Dose: 3 ml Documented by: GI <CAYDEN Thomas - Last Filed: 11/24/21 14:32> Labs CBC & Chem 7: : 11/24/21 06:24 11/24/21 06:24 <CAYDEN Thomas - Last Filed: 11/24/21 14:32> Labs: Laboratory Results - last 24 hr 11/24/21 11/24/21 06:24 06:24 MCV 95.4 MCH 30.8 MCHC 32.3 RDW 13.5 Plt Count 123 L MPV 10.7 Absolute Nucleated RBC 0.000 Nucleated RBC % (auto) 0.0 Anion Gap 14 Estim Creat Clear Calc 46.6 Estimated GFR > 60 Random Glucose 116 H Calcium 9.2 <CAYDEN Thomas - Last Filed: 11/24/21 14:32> Assessment and Plan (1) Closed intertrochanteric fracture: Status: Acute <CAYDEN Thomas - Last Filed: 11/24/21 14:32> (2) COPD (chronic obstructive pulmonary disease): Status: Acute <CAYDEN Thomas - Last Filed: 11/24/21 14:32> (3) Lung cancer: Status: Acute <CAYDEN Thomas - Last Filed: 11/24/21 14:32> Plan This is an 86 year old male with a PMH of PAF on Metoprolol/Eliquis, CAD s/p PCI x 2, 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 This has resulted in a R minimally displaced intertrocanteric, proximal femur fx. The patient and family have elected for operative repair. R minimally displaced intertrocanteric, proximal femur fx s/p Right IMN 4/8 ortho following pain control/bowel regimen Paroxsmal A. Fib/CAD continue metoprolol, statin d/w ortho, ok to resume Eliquis this evening will monitor on telemetry in the lidia-operative period Stage 4 AdenoCa of the Lung/chronic respiratory failure on 2L home o2 [place] [facility] [place] the chest shows improvement of the mass outpatient f/u with oncology Chronic COPD continue his baseline inhalers HTN BP elevated overnight, likely secondary to pain continue metoprolol hold RAJAN for now Hypothyroidism continue synthroid HLD continue statin Full Code DVT pptx, Mechanical for now; pharmacological post surgery Endorses his as HCP Attending: dr. 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 This has resulted in a R minimally displaced intertrocanteric, proximal femur fx. The patient and family have elected for operative repair. R minimally displaced intertrocanteric, proximal femur fx s/p Right IMN 11/23 ortho following pain control/bowel regimen Paroxsmal A. Fib/CAD continue metoprolol, statin d/w ortho, ok to resume Eliquis this evening will monitor on telemetry in the lidia-operative period Stage 4 AdenoCa of the Lung/chronic respiratory failure on 2L home o2 receiving immunotherapy [place] [facility] [place] the chest shows improvement of the mass outpatient f/u with oncology Chronic COPD continue his baseline inhalers HTN BP elevated overnight, likely secondary to pain continue metoprolol hold RAJAN for now Hypothyroidism continue synthroid HLD continue statin Full Code DVT pptx, Mechanical for now; pharmacological post surgery Endorses his as HCP Attending: dr. webber Chart reviewed; patient examined. Agree with history and physical and plan as outlined by Ms. Pereira. Requires continued inpatient stay due to femur fracture requiring operative fixation <Que Webber DO - Last Filed: 11/25/21 07:54> Quality Stroke Does the patient have a stroke diagnosis?: No <CAYDEN Thomas - Last Filed: 11/24/21 14:32> VTE Prior VTE?: No <CAYDEN Thomas - Last Filed: 11/24/21 14:32> VTE Risk Level:: Medical - moderate - high <CAYDEN Thomas - Last Filed: 11/24/21 14:32> VTE Device Contraindication: Treatment Not Indicated <CAYDEN Thomas - Last Filed: 11/24/21 14:32> VTE Drug Contraindication: N/A - Med Ordered <CAYDEN Thomas - Last Filed: 11/24/21 14:32>
[2021-11-24] MEDS: guaiFENesin LA 600 MG TAB.ER.12H PO ×2 (16:25→20:04)
--- NOTE | 2021-11-24 18:46 | PM.PNORT ---
Subjective Subjective Date of Service: 11/24/21 Interval history: Pod 1 s/p RT hip IMN no overnight events resting in bed, comfortable Physical Exam Vital Signs: Vital Signs: Last Vital Signs Temp 98.0 F 11/24/21 15: Pulse 70 11/24/21 15:22 Resp 18 11/24/21 15:22 BP 112/75 11/24/21 15:22 Pulse Ox 97 11/24/21 15:22 BMI result Body Mass Index 20.0 Const: General: cooperative, healthy appearing and no acute distress Resp: Effort & Inspection: normal respiratory effort and able to speak in complete sentences Cardio: Rate: regular rate Peripheral pulses: Peripheral pulses 2+ throughout GI: Palpation (GI): Soft to palpation Skin: General skin exam: no rashes or lesions noted Extrem: Other: incision clean dry and intact. Devin intact. No erythema or effusion. Calf supple nontender. Neurovascularly intact. Procedures Date of Service Date of Service: 11/24/21 Progress Note: A&P Assessment and plan (1) Closed intertrochanteric fracture: Status: Acute Assessment and Plan: Continue pain mgmnt Resume anticoag begin PT /OT Rt hip IMN Dispo planning-Pending PT eval, pain mgmnt Fall Risk Details Current Medications: Current Medications Acetaminophen (Acetaminophen 325 Mg Tablet) 650 mg PO Q6H PRN PRN Reason: Pain, Mild (Pain Scale 1-3) Last Admin: 11/21/21 15:51 Dose: 650 mg Documented by: Albuterol/Ipratropium (Albuterol/Iprat 2.5/0.5mg 3 Ml Ampul.Neb) 3 ml INHALE Q6H PRN PRN Reason: Shortness of Breath Apixaban (Apixaban 2.5 Mg Tablet) 2.5 mg PO BID [facility] Atorvastatin Calcium (Atorvastatin Calcium 20 Mg Tablet) 20 mg PO BEDTIME [facility] Last Admin: 11/23/21 19:51 Dose: 20 mg Documented by: Fluticasone/Vilanterol (Fluticasone/Vilanterol 200/25 Blst.W.Dev) 1 puff INHALE RDAILY [facility] Last Admin: 11/24/21 07:44 Dose: Not Given Documented by: Guaifenesin (Guaifenesin La 600 Mg Tab.Er.12h) 600 mg PO BID [facility] Last Admin: 11/24/21 16:25 Dose: 600 mg Documented by: Hydroxyzine HCl (Hydroxyzine Hcl 25 Mg Tablet) 25 mg PO BEDTIME [facility] Last Admin: 11/23/21 19:51 Dose: 25 mg Documented by: Cefazolin Sodium/Dextrose (Ancef) 2 gm in 50 mls @ 100 mls/hr IV POSTOP [facility] Latanoprost (Latanoprost 0.005 % Ophth Stephania 2.5 Ml Drops) 1 drop EYE-BOTH BEDTIME [facility] Last Admin: 11/23/21 19:54 Dose: 1 drop Documented by: Levothyroxine Sodium (Levothyroxine Sodium 88 Mcg Tablet) 88 mcg PO DAILY@0600 [facility] Last Admin: 11/24/21 04:37 Dose: 88 mcg Documented by: Metoprolol Succinate (Metoprolol Succinate Er 50 Mg Tab.Er.24h) 50 mg PO DAILY [facility]; Protocol Last Admin: 11/24/21 08:48 Dose: 50 mg Documented by: Morphine Sulfate (Morphine Sulfate 2 Mg/Ml Cartridge) 2 mg IVPUSH Q3H PRN; Protocol PRN Reason: Pain, Severe (Pain Scale 7-10) Last Admin: 11/23/21 02:57 Dose: 2 mg Documented by: Multivitamins/Vitamin C (Multivitamin Tablet) 1 tab PO DAILY [facility] Last Admin: 11/24/21 08:48 Dose: 1 tab Documented by: Oxycodone HCl (Oxycodone Hcl Immed Release 5 Mg Tablet) 5 mg PO Q6H PRN PRN Reason: Pain, Severe (Pain Scale 7-10) Last Admin: 11/24/21 08:48 Dose: 5 mg Documented by: Pharmacy Consult (Consult Rx Perform Med Rec) 1 each MISCELLANE ONCE PRN PRN Reason: Consult order Polyethylene Glycol (Polyethylene Glycol 3350 17 Gm Powd.Pack) 17 gm PO DAILY [facility] Last Admin: 11/24/21 08:48 Dose: 17 gm Documented by: Senna/Docusate Sodium (Sennosides/Docusate Sodium Tablet) 1 tab PO BEDTIME [facility] Last Admin: 11/23/21 19:51 Dose: 1 tab Documented by: Sodium Chloride (0.9 % Sodium Chloride Flush 3 Ml Syringe) 3 ml IVFLUSH QSHIFT [facility] Last Admin: 11/24/21 16:28 Dose: 3 ml Documented by: Time Spent With Patient Time: Total time spent is greater than 50% in coordination of care (as documented) at patient's floor/unit and/or counseling patient: Quality Stroke Does the patient have a stroke diagnosis?: No VTE Prior VTE?: No VTE Risk Level:: Medical - moderate - high VTE Device Contraindication: Treatment Not Indicated VTE Drug Contraindication: N/A - Med Ordered
[2021-11-24] MEDS: Sennosides/Docusate Sodium TABLET 1 TAB PO (20:04)
[2021-11-24] MEDS: Atorvastatin Calcium 20 MG TABLET PO (20:04)
[2021-11-24] MEDS: Apixaban 2.5 MG TABLET PO (20:04)
[2021-11-24] MEDS: Latanoprost 0.005 % Ophth Sol 2.5 ML DROPS 1 DROP EYE-BOTH (20:05)
[2021-11-24] MEDS: hydrOXYzine HCL 25 MG TABLET PO (20:05)
[2021-11-25] MEDS: Metoprolol Succinate ER 50 MG TAB.ER.24H PO (08:23)
[2021-11-25] MEDS: guaiFENesin LA 600 MG TAB.ER.12H PO ×2 (08:23→21:14)
[2021-11-25] MEDS: 0.9 % Sodium Chloride Flush 3 ML SYRINGE IVFLUSH ×3 (08:23→21:15)
[2021-11-25] MEDS: Multivitamin TABLET 1 TAB PO (08:23)
[2021-11-25] MEDS: Levothyroxine Sodium 88 MCG TABLET PO (08:23)
[2021-11-25] MEDS: Apixaban 2.5 MG TABLET PO ×2 (08:23→21:14)
[2021-11-25] MEDS: polyethylene glycoL 3350 17 GM POWD.PACK PO (08:23)
[2021-11-25 08:32] VITALS: BP 107/56; PULSE 81; RESP 20; TEMP 37.1; O2SAT 98
[2021-11-25 09:05] LABS: Hematocrit 29.6 % (42.0-52.0); Hemoglobin 9.2 g/dl (14.0-18.0); Mean Corpuscular HGB Conc 31.1 g/dl (31.0-36.0); Mean Corpuscular Hemoglobin 29.9 pg (27.0-33.0); Mean Corpuscular Volume 96.1 fL (80.0-98.0); Mean Platelet Volume 10.3 fL (9.4-12.4); Platelet Count 139 X10*3/uL (160-400); Red Blood Count 3.08 X10*6/uL (4.60-5.80); Red Cell Distribution Width 13.8 % (11.0-16.0); White Blood Count 8.2 X10*3/uL (4.8-10.8)
--- NOTE | 2021-11-25 09:09 | MHC.CM.PN ---
Accepted call from Hillary; explained there is no bed offer at this time for patient's D/C. Inquired RE immunotherapy details; Hillary confirmed therapy administered is keytruday [id number] for lung CA. She indicated that he was due for his administration just prior to his fall and admission to [facility], and hence did not received scheduled most recent dosing. [facility] interested in patient; they want to know if patient will be getting immunotherapy while in rehab. At time of D/C will work w/physician(s) RE if keytruda will be given while in rehab or not. Hillary informed this could potentially be a barrier to admit to SNF level of care D/T financial/expense concerns. Will stay tuned for D/C indications from .
[2021-11-25 09:20] LABS: Anion Gap 14 (12-20); Blood Urea Nitrogen 29 mg/dL (9-16); Calcium 9.1 mg/dL (8.4-10.2); Carbon Dioxide 29 mmol/L (22-29); Chloride 103 mmol/L (96-108); Creatinine Clr Calc Pharmacy 45.7; Estimated Glomerular Filt Rate > 60; Glucose Random 87 mg/dL (60-115); Potassium 4.5 mmol/L (3.3-5.1); Sodium 141 mmol/L (135-145)
--- NOTE | 2021-11-25 12:17 | HO.PM.IMPN ---
Subjective Subjective Date of Service: 11/25/21 <CAYDEN Thomas - Last Filed: 11/25/21 12:24> 11/25/21 <Que Webber DO - Last Filed: 11/25/21 15:05> Interval History: Seen and examined this morning Follow-up for right hip fracture status post repair Seems a little confused this morning, denies any hip pain <CAYDEN Thomas - Last Filed: 11/25/21 12:24> Review of Systems Review of Systems: Yes all other systems are reviewed and are negative <CAYDEN Thomas - Last Filed: 11/25/21 12:24> Constitutional Constitutional: Denies chills and Denies fever(s) <CAYDEN Thomas - Last Filed: 11/25/21 12:24> Cardiovascular Cardiovascular: Denies chest pain, Denies palpitations and Denies dyspnea <CAYDEN Thomas - Last Filed: 11/25/21 12:24> Respiratory Respiratory: Denies cough and Denies dyspnea <CAYDEN Thomas - Last Filed: 11/25/21 12:24> Gastrointestinal Gastrointestinal: Denies abdominal pain <CAYDEN Thomas - Last Filed: 11/25/21 12:24> Endocrine Endocrine: Denies palpitations <CAYDEN Thomas - Last Filed: 11/25/21 12:24> Physical Exam Vital Signs: Vital Signs: Last Vital Signs Temp 98.7 F 11/25/21 08:32 Pulse 81 11/25/21 08:32 Resp 20 11/25/21 08:32 BP 107/56 L 11/25/21 08:32 Pulse Ox 98 11/25/21 08:32 BMI result Body Mass Index 20.0 <CAYDEN Thomas - Last Filed: 11/25/21 12:24> Const: Other: chronically ill appearing appears fatigued this morning, more lethargic <CAYDEN Thomas - Last Filed: 11/25/21 12:24> General: cooperative and awake <CAYDEN Thomas - Last Filed: 11/25/21 12:24> Nutritional Appearance: thin <CAYDEN Thomas - Last Filed: 11/25/21 12:24> Chest: Other: port right chest wall <CAYDEN Thomas - Last Filed: 11/25/21 12:24> Resp: Other: diminished breath sounds b/l <CAYDEN Thomas - Last Filed: 11/25/21 12:24> Effort & Inspection: normal respiratory effort and able to speak in complete sentences <CAYDEN Thomas - Last Filed: 11/25/21 12:24> Cardio: Rate: regular rate <CAYDEN Thomas - Last Filed: 11/25/21 12:24> Heart sounds: S1 normal heart sound present and S2 normal heart sound present <CAYDEN Thomas - Last Filed: 11/25/21 12:24> GI: Inspection: No distended <CAYDEN Thomas - Last Filed: 11/25/21 12:24> Palpation (GI): Soft to palpation and nontender <CAYDEN Thomas - Last Filed: 11/25/21 12:24> : Other: cannon draining yellow urine <CAYDEN Thomas - Last Filed: 11/25/21 12:24> Extrem: Other: no leg edema ; right hip bandage without staining <CAYDEN Thomas Last Filed: 11/25/21 12:24> Objective Data Active Medications Acetaminophen (Acetaminophen 325 Mg Tablet) 650 mg PO Q6H PRN PRN Reason: Pain, Mild (Pain Scale 1-3) Last Admin: 11/21/21 15:51 Dose: 650 mg Documented by: ASPEN Albuterol/Ipratropium (Albuterol/Iprat 2.5/0.5mg 3 Ml Ampul.Neb) 3 ml INHALE Q6H PRN PRN Reason: Shortness of Breath Apixaban (Apixaban 2.5 Mg Tablet) 2.5 mg PO BID [facility] Last Admin: 11/25/21 08:23 Dose: 2.5 mg Documented by: GI Atorvastatin Calcium (Atorvastatin Calcium 20 Mg Tablet) 20 mg PO BEDTIME [facility] Last Admin: 11/24/21 20:04 Dose: 20 mg Documented by: HO.ANTOIC Fluticasone/Vilanterol (Fluticasone/Vilanterol 200/25 Blst.W.Dev) 1 puff INHALE RDAILY [facility] Last Admin: 11/25/21 07:37 Dose: Not Given Documented by: KIRTI Non-Admin Reason: Patient Asleep Guaifenesin (Guaifenesin La 600 Mg Tab.Er.12h) 600 mg PO BID [facility] Last Admin: 11/25/21 08:23 Dose: 600 mg Documented by: GI Hydroxyzine HCl (Hydroxyzine Hcl 25 Mg Tablet) 25 mg PO BEDTIME [facility] Last Admin: 11/24/21 20:05 Dose: 25 mg Documented by: RUDOLPH Latanoprost (Latanoprost 0.005 % Ophth Stephania 2.5 Ml Drops) 1 drop EYE-BOTH BEDTIME [facility] Last Admin: 11/24/21 20:05 Dose: 1 drop Documented by: RUDOLPH Levothyroxine Sodium (Levothyroxine Sodium 88 Mcg Tablet) 88 mcg PO DAILY@0600 [facility] Last Admin: 11/25/21 08:23 Dose: 88 mcg Documented by: GI Metoprolol Succinate (Metoprolol Succinate Er 50 Mg Tab.Er.24h) 50 mg PO DAILY [facility]; Protocol Last Admin: 11/25/21 08:23 Dose: 50 mg Documented by: GI Morphine Sulfate (Morphine Sulfate 2 Mg/Ml Cartridge) 2 mg IVPUSH Q3H PRN; Protocol PRN Reason: Pain, Severe (Pain Scale 7-10) Last Admin: 11/23/21 02:57 Dose: 2 mg Documented by: RAINE Multivitamins/Vitamin C (Multivitamin Tablet) 1 tab PO DAILY [facility] Last Admin: 11/25/21 08:23 Dose: 1 tab Documented by: GI Oxycodone HCl (Oxycodone Hcl Immed Release 5 Mg Tablet) 5 mg PO Q6H PRN PRN Reason: Pain, Severe (Pain Scale 7-10) Last Admin: 11/24/21 08:48 Dose: 5 mg Documented by: GI Pharmacy Consult (Consult Rx Perform Med Rec) 1 each MISCELLANE ONCE PRN PRN Reason: Consult order Polyethylene Glycol (Polyethylene Glycol 3350 17 Gm Powd.Pack) 17 gm PO DAILY [facility] Last Admin: 11/25/21 08:23 Dose: 17 gm Documented by: GI Senna/Docusate Sodium (Sennosides/Docusate Sodium Tablet) 1 tab PO BEDTIME [facility] Last Admin: 11/24/21 20:04 Dose: 1 tab Documented by: RUDOLPH Sodium Chloride (0.9 % Sodium Chloride Flush 3 Ml Syringe) 3 ml IVFLUSH QSHIFT [facility] Last Admin: 11/25/21 08:23 Dose: 3 ml Documented by: GI <CAYDEN Thomas - Last Filed: 11/25/21 12:24> Labs CBC & Chem 7: : 11/25/21 08:51 11/25/21 08:51 <CAYDEN Thomas - Last Filed: 11/25/21 12:24> Labs: Laboratory Results - last 24 hr 11/25/21 11/25/21 08:51 08:51 MCV 96.1 MCH 29.9 MCHC 31.1 RDW 13.8 Plt Count 139 L MPV 10.3 Absolute Nucleated RBC 0.000 Nucleated RBC % (auto) 0.0 Anion Gap 14 Estim Creat Clear Calc 45.7 Estimated GFR > 60 Random Glucose 87 Calcium 9.1 <CAYDEN Thomas - Last Filed: 11/25/21 12:24> Assessment and Plan (1) Closed intertrochanteric fracture: Status: Acute <CAYDEN Thomas - Last Filed: 11/25/21 12:24> (2) COPD (chronic obstructive pulmonary disease): Status: Acute <CAYDEN Thomas - Last Filed: 11/25/21 12:24> (3) Lung cancer: Status: Acute <CAYDEN Thomas - Last Filed: 11/25/21 12:24> Plan This is an 86 year old male with a PMH of PAF on Metoprolol/Eliquis, CAD s/p PCI x 2, 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 This has resulted in a R minimally displaced intertrocanteric, proximal femur fx. The patient and family have elected for operative repair. R minimally displaced intertrocanteric, proximal femur fx POD # s/p Right IMN 4/8 ortho following pain control/bowel regimen Paroxsmal A. Fib/CAD continue metoprolol, statin d/w ortho, Eliquis resumed 11/24 will monitor on telemetry in the lidia-operative period Stage 4 AdenoCa of the Lung/chronic respiratory failure on 2L home o2 receiving immunotherapy at [facility] [place] of the chest shows improvement of the mass outpatient f/u with oncology Chronic COPD continue his baseline inhalers HTN BP improved continue metoprolol hold RAJAN for now Hypothyroidism continue synthroid HLD continue statin Full Code DVT pptx, Mechanical, eliquis Endorses his as HCP Attending: dr. 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 This has resulted in a R minimally displaced intertrocanteric, proximal femur fx. The patient and family have elected for operative repair. R minimally displaced intertrocanteric, proximal femur fx POD # s/p Right IMN 4/8 ortho following pain control/bowel regimen Paroxsmal A. Fib/CAD continue metoprolol, statin d/w ortho, Eliquis resumed 11/24 will monitor on telemetry in the lidia-operative period Stage 4 AdenoCa of the Lung/chronic respiratory failure on 2L home o2 receiving immunotherapy at [facility] [place] of the chest shows improvement of the mass outpatient f/u with oncology Chronic COPD continue his baseline inhalers HTN BP improved continue metoprolol hold RAJAN for now Hypothyroidism continue synthroid HLD continue statin Full Code DVT pptx, Mechanical, eliquis Endorses his as HCP Attending: dr. webber Chart reviewed; patient examined. Agree with history physical and plan as outlined by Ms. Pereira Requires continued inpatient stay due to femur fracture requiring operative fixation Dispo: SNF for STR possibly tomorrow <Que Webber DO - Last Filed: 11/25/21 15:05> Quality Stroke Does the patient have a stroke diagnosis?: No <CAYDEN Thomas - Last Filed: 11/25/21 12:24> VTE Prior VTE?: No <CAYDEN Thomas - Last Filed: 11/25/21 12:24> VTE Risk Level:: Medical - moderate - high <CAYDEN Thomas - Last Filed: 11/25/21 12:24> VTE Device Contraindication: Treatment Not Indicated <CAYDEN Thomas - Last Filed: 11/25/21 12:24> VTE Drug Contraindication: N/A - Med Ordered <CAYDEN Thomas - Last Filed: 11/25/21 12:24>
[2021-11-25 13:02] VITALS: BP 108/55; PULSE 84; RESP 20; TEMP 36.8; O2SAT 99
[2021-11-25 15:18] VITALS: BP 114/60; PULSE 83; RESP 20; TEMP 36.7; O2SAT 98
[2021-11-25] MEDS: oxyCODONE HCl Immed Release 5 MG TABLET PO (21:14)
[2021-11-25] MEDS: Sennosides/Docusate Sodium TABLET 1 TAB PO (21:14)
[2021-11-25] MEDS: hydrOXYzine HCL 25 MG TABLET PO (21:14)
[2021-11-25] MEDS: Atorvastatin Calcium 20 MG TABLET PO (21:14)
[2021-11-25] MEDS: Latanoprost 0.005 % Ophth Sol 2.5 ML DROPS 1 DROP EYE-BOTH (21:15)
[2021-11-26] VITALS (8 sets, daily range): BP systolic 103–139; BP diastolic 56–68; PULSE 81–88; RESP 16–20; TEMP 36.1–38.1; O2SAT 90–99
[2021-11-26] MEDS: Levothyroxine Sodium 88 MCG TABLET PO (05:26)
[2021-11-26] MEDS: Fluticasone/Vilanterol 200/25 BLST.W.DEV 1 PUFF INHALE (08:09)
[2021-11-26] MEDS: 0.9 % Sodium Chloride Flush 3 ML SYRINGE IVFLUSH (09:45)
[2021-11-26] MEDS: Metoprolol Succinate ER 50 MG TAB.ER.24H PO (09:45)
[2021-11-26] MEDS: Apixaban 2.5 MG TABLET PO ×2 (09:45→22:13)
[2021-11-26] MEDS: polyethylene glycoL 3350 17 GM POWD.PACK PO (09:45)
[2021-11-26] MEDS: guaiFENesin LA 600 MG TAB.ER.12H PO ×2 (09:46→22:13)
[2021-11-26] MEDS: Multivitamin TABLET 1 TAB PO (09:46)
--- NOTE | 2021-11-26 12:28 | P.PNIM_ITS ---
Subjective Subjective Date of Service: 11/26/21 Review of Systems Follow up hip fx s/p IM nailing Feeling tired denied pain Physical Exam Vital Signs: Vital Signs: Last Vital Signs Temp 100.5 F H 11/26/21 11:00 Pulse 84 11/26/21 11:00 Resp 19 11/26/21 11:00 BP 134/64 11/26/21 11:00 Pulse Ox 91 L 11/26/21 11:00 BMI result Body Mass Index 20.0 Appearing in no acute distress lung sounds rhonchi heart regular rate rhythm, clear S1, S2 positive bowel sounds, abdomen is soft, nontender neuro patient is alert x3, no focal deficits Objective Data Active Medications Acetaminophen (Acetaminophen 325 Mg Tablet) 650 mg PO Q6H PRN PRN Reason: Pain, Mild (Pain Scale 1-3) Last Admin: 11/21/21 15:51 Dose: 650 mg Documented by: ASPEN Albuterol/Ipratropium (Albuterol/Iprat 2.5/0.5mg 3 Ml Ampul.Neb) 3 ml INHALE Q6H PRN PRN Reason: Shortness of Breath Apixaban (Apixaban 2.5 Mg Tablet) 2.5 mg PO BID [facility] Last Admin: 11/26/21 09:45 Dose: 2.5 mg Documented by: PATRICE Atorvastatin Calcium (Atorvastatin Calcium 20 Mg Tablet) 20 mg PO BEDTIME [facility] Last Admin: 11/25/21 21:14 Dose: 20 mg Documented by: DIXIE Fluticasone/Vilanterol (Fluticasone/Vilanterol 200/25 Blst.W.Dev) 1 puff INHALE RDAILY [facility] Last Admin: 11/26/21 08:09 Dose: 1 puff Documented by: BREKAIN Guaifenesin (Guaifenesin La 600 Mg Tab.Er.12h) 600 mg PO BID [facility] Last Admin: 11/26/21 09:46 Dose: 600 mg Documented by: PATRICE Hydroxyzine HCl (Hydroxyzine Hcl 25 Mg Tablet) 25 mg PO BEDTIME [facility] Last Admin: 11/25/21 21:14 Dose: 25 mg Documented by: DIXIE Latanoprost (Latanoprost 0.005 % Ophth Stephania 2.5 Ml Drops) 1 drop EYE-BOTH BEDTIME [facility] Last Admin: 11/25/21 21:15 Dose: 1 drop Documented by: DIXIE Levothyroxine Sodium (Levothyroxine Sodium 88 Mcg Tablet) 88 mcg PO DAILY@0600 [facility] Last Admin: 11/26/21 05:26 Dose: 88 mcg Documented by: DIXIE Metoprolol Succinate (Metoprolol Succinate Er 50 Mg Tab.Er.24h) 50 mg PO DAILY [facility]; Protocol Last Admin: 11/26/21 09:45 Dose: 50 mg Documented by: PATRICE Multivitamins/Vitamin C (Multivitamin Tablet) 1 tab PO DAILY [facility] Last Admin: 11/26/21 09:46 Dose: 1 tab Documented by: PATRICE Pharmacy Consult (Consult Rx Perform Med Rec) 1 each MISCELLANE ONCE PRN PRN Reason: Consult order Polyethylene Glycol (Polyethylene Glycol 3350 17 Gm Powd.Pack) 17 gm PO DAILY [facility] Last Admin: 11/26/21 09:45 Dose: 17 gm Documented by: PATRICE Senna/Docusate Sodium (Sennosides/Docusate Sodium Tablet) 1 tab PO BEDTIME [facility] Last Admin: 11/25/21 21:14 Dose: 1 tab Documented by: DIXIE Sodium Chloride (0.9 % Sodium Chloride Flush 3 Ml Syringe) 3 ml IVFLUSH QSHIFT [facility] Last Admin: 11/26/21 09:45 Dose: 3 ml Documented by: PATRICE Labs CBC & Chem 7: 11/25/21 08:51 11/25/21 08:51 Assessment and Plan (1) Closed intertrochanteric fracture: Status: Acute (2) COPD (chronic obstructive pulmonary disease): Status: Acute (3) Lung cancer: Status: Acute Plan This is an 86 year old male with a PMH of PAF on Metoprolol/Eliquis, CAD s/p PCI x 2, 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 This has resulted in a R minimally displaced intertrocanteric, proximal femur fx. The patient and family have elected for operative repair. Constipation Fleets enema miralax Low grade temp Check CXR and UA R minimally displaced intertrocanteric, proximal femur fx s/p Right IMN 11/23 ortho following pain control/bowel regimen Paroxsmal A. Fib/CAD continue metoprolol, statin d/w ortho, Eliquis resumed 11/24 will monitor on telemetry in the lidia-operative period Stage 4 AdenoCa of the Lung/chronic respiratory failure on 2L home o2 receiving immunotherapy at [facility] CT of the chest shows improvement of the mass outpatient f/u with oncology Chronic COPD continue his baseline inhalers HTN BP improved continue metoprolol hold RAJAN for now Hypothyroidism continue synthroid HLD continue statin Full Code DVT pptx, Mechanical, eliquis Endorses his as HCP Attending: dr. Maza Requires continued inpatient stay due to femur fracture requiring operative fixation and severe constipation requiring oral and rectal medications. he is also immunocompromised due to treatment for lung cancer with immunotherapy and has shown signs of possible infection with low-grade fever, he will be worked up for this. Quality Stroke Does the patient have a stroke diagnosis?: No VTE Prior VTE?: No VTE Risk Level:: Medical - moderate - high VTE Device Contraindication: Treatment Not Indicated VTE Drug Contraindication: N/A - Med Ordered
[2021-11-26 13:10] LABS: COVID-19 Test Negative (Negative)
--- NOTE | 2021-11-26 14:17 | MHC.CLN ---
Addendum entered by Korin Garcia, PAYAL 11/27/21 08:54: FAMILY AND PT RECEPTIVE TO TRIAL OF ENSURE CLEAR TID TO INCREASE KCALS Original Note: F/U NFPE COMPLETED PT IS SEVERELY MALNOURISHED (SEVERE MALNUTRITION IN THE CONTEXT OF CHRONIC ILLNESS) PT WITH SEVERELY DEPLETED SUBCUTANEOUS FAT AND MUSCLE MASS WITH CHRONIC POOR PO INTAKE AND 84% IBW DIET RX: REGULAR-APPROPRIATE DISCUSSED WITH FAMILY- PT WITH PREVIOUS HX GI UPSET WHEN DRINKING ENSURE ENLIVE FAMILY AND PT RECEPTIVE TO TRIAL OF ENSURE ENLIVE TID TO INCREASE KCALS SUPP TO PROVIDE 720KCALS, 24G PROTEIN PT PREFERS SMALL PORTIONS WITH MEALS MONITOR PO CLOSELY
[2021-11-26] MEDS: Mineral OiL enema 133 ML ENEMA PR (17:14)
--- NOTE | 2021-11-26 17:52 | PC.NURSE ---
Pt given fleet enema at 1700, instilled for 15 minutes, only return noted was clear enema fluid- no stool . Pt's bowels appear to be rigid- unsure if pt is flexing abdominal wall as pt relax's at times- bowels feel soft to palpation. Pt does have positive bowel sounds, will continue to monitor.
[2021-11-26] MEDS: Sennosides/Docusate Sodium TABLET 1 TAB PO (22:12)
[2021-11-26] MEDS: Latanoprost 0.005 % Ophth Sol 2.5 ML DROPS 1 DROP EYE-BOTH (22:12)
[2021-11-26] MEDS: hydrOXYzine HCL 25 MG TABLET PO (22:13)
[2021-11-26] MEDS: Atorvastatin Calcium 20 MG TABLET PO (22:13)
[2021-11-27] VITALS (8 sets, daily range): BP systolic 109–147; BP diastolic 53–72; PULSE 72–98; RESP 16–20; TEMP 36.3–36.9; O2SAT 95–99
[2021-11-27] MEDS: 0.9 % Sodium Chloride Flush 3 ML SYRINGE IVFLUSH ×4 (00:47→20:12)
[2021-11-27] MEDS: Acetaminophen 325 MG TABLET 650 MG PO ×3 (00:55→21:41)
[2021-11-27] MEDS: Levothyroxine Sodium 88 MCG TABLET PO (05:41)
[2021-11-27] MEDS: Fluticasone/Vilanterol 200/25 BLST.W.DEV 1 PUFF INHALE (07:49)
[2021-11-27] MEDS: polyethylene glycoL 3350 17 GM POWD.PACK PO (08:22)
[2021-11-27] MEDS: Multivitamin TABLET 1 TAB PO (08:22)
[2021-11-27] MEDS: guaiFENesin LA 600 MG TAB.ER.12H PO ×2 (08:22→20:09)
[2021-11-27] MEDS: Metoprolol Succinate ER 50 MG TAB.ER.24H PO (08:22)
[2021-11-27] MEDS: Apixaban 2.5 MG TABLET PO ×2 (08:22→20:08)
[2021-11-27] MEDS: Lactulose 20 GM/30 ML SOLUTION 10 GM PO (12:19)
--- NOTE | 2021-11-27 13:38 | P.PNIM_ITS ---
Subjective Subjective Date of Service: 11/27/21 Interval History: Follow-up on hip fracture repair Interval history; complaint of constipation Review of Systems No hip pain Constipation Physical Exam Vital Signs: Vital Signs: Last Vital Signs Temp 98.4 F 11/27/21 11:14 Pulse 74 11/27/21 11:14 Resp 18 11/27/21 11:14 BP 109/58 L 11/27/21 11:14 Pulse Ox 98 11/27/21 11:14 BMI result Body Mass Index 20.0 Const: Other: General: AO X 2, no acute distress Resp: CTA bilateral CVS: S1,S2,RRR GI: +BS, NT, no distention Skin: No rash, surgery site d/c/i Neuro: motor grossly intact Psych: appropriate affect Objective Data Active Medications Acetaminophen (Acetaminophen 325 Mg Tablet) 650 mg PO Q6H PRN PRN Reason: Pain, Mild (Pain Scale 1-3) Last Admin: 11/27/21 12:19 Dose: 650 mg Documented by: LUKE Albuterol/Ipratropium (Albuterol/Iprat 2.5/0.5mg 3 Ml Ampul.Neb) 3 ml INHALE Q6H PRN PRN Reason: Shortness of Breath Apixaban (Apixaban 2.5 Mg Tablet) 2.5 mg PO BID [facility] Last Admin: 11/27/21 08:22 Dose: 2.5 mg Documented by: LUKE Atorvastatin Calcium (Atorvastatin Calcium 20 Mg Tablet) 20 mg PO BEDTIME [facility] Last Admin: 11/26/21 22:13 Dose: 20 mg Documented by: CAROLINE Fluticasone/Vilanterol (Fluticasone/Vilanterol 200/25 Blst.W.Dev) 1 puff INHALE RDAILY [facility] Last Admin: 11/27/21 07:49 Dose: 1 puff Documented by: TALI Guaifenesin (Guaifenesin La 600 Mg Tab.Er.12h) 600 mg PO BID [facility] Last Admin: 11/27/21 08:22 Dose: 600 mg Documented by: LUKE Hydroxyzine HCl (Hydroxyzine Hcl 25 Mg Tablet) 25 mg PO BEDTIME [facility] Last Admin: 11/26/21 22:13 Dose: 25 mg Documented by: CAROLINE Latanoprost (Latanoprost 0.005 % Ophth Stephania 2.5 Ml Drops) 1 drop EYE-BOTH BEDTIME [facility] Last Admin: 11/26/21 22:12 Dose: 1 drop Documented by: CAROLINE Levothyroxine Sodium (Levothyroxine Sodium 88 Mcg Tablet) 88 mcg PO DAILY@0600 [facility] Last Admin: 11/27/21 05:41 Dose: 88 mcg Documented by: RAINE Metoprolol Succinate (Metoprolol Succinate Er 50 Mg Tab.Er.24h) 50 mg PO DAILY [facility]; Protocol Last Admin: 11/27/21 08:22 Dose: 50 mg Documented by: LUKE Multivitamins/Vitamin C (Multivitamin Tablet) 1 tab PO DAILY [facility] Last Admin: 11/27/21 08:22 Dose: 1 tab Documented by: LUKE Pharmacy Consult (Consult Rx Perform Med Rec) 1 each MISCELLANE ONCE PRN PRN Reason: Consult order Polyethylene Glycol (Polyethylene Glycol 3350 17 Gm Powd.Pack) 17 gm PO DAILY [facility] Last Admin: 11/27/21 08:22 Dose: 17 gm Documented by: LUKE Senna/Docusate Sodium (Sennosides/Docusate Sodium Tablet) 1 tab PO BEDTIME [facility] Last Admin: 11/26/21 22:12 Dose: 1 tab Documented by: CAROLINE Sodium Chloride (0.9 % Sodium Chloride Flush 3 Ml Syringe) 3 ml IVFLUSH QSHIFT [facility] Last Admin: 11/27/21 08:22 Dose: 3 ml Documented by: LUKE Labs CBC & Chem 7: 11/25/21 08:51 11/25/21 08:51 Assessment and Plan (1) Closed intertrochanteric fracture: Status: Acute (2) COPD (chronic obstructive pulmonary disease): Status: Acute (3) Lung cancer: Status: Acute Plan This is an 86 year old male with a PMH of PAF on Metoprolol/Eliquis, CAD s/p PCI x 2, 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 This has resulted in a R minimally displaced intertrocanteric, proximal femur fx. The patient and family have elected for operative repair. Constipation Fleets enema miralax and now lactulose Low grade temp Check CXR and UA R minimally displaced intertrocanteric, proximal femur fx s/p Right IMN 11/23 ortho following pain control/bowel regimen Paroxsmal A. Fib/CAD continue metoprolol, statin d/w ortho, Eliquis resumed 11/24 will monitor on telemetry in the lidia-operative period Stage 4 AdenoCa of the Lung/chronic respiratory failure on 2L home o2 receiving immunotherapy [place] [facility] [place] of the chest shows improvement of the mass outpatient f/u with oncology Chronic COPD continue his baseline inhalers HTN BP improved continue metoprolol hold RAJAN for now Hypothyroidism continue synthroid HLD continue statin Full Code DVT pptx, Mechanical, eliquis Endorses his as HCP Attending: dr. Maza Requires continued inpatient stay due to femur fracture requiring operative fixation and severe constipation requiring oral and rectal medications. he is also immunocompromised due to treatment for lung cancer with immunotherapy and has shown signs of possible infection with low-grade fever, he will be worked up for this. Discharge later today if not tomorrow, he's uncoformtable from constiaption and med adjustment been made Quality Stroke Does the patient have a stroke diagnosis?: No VTE Prior VTE?: No VTE Risk Level:: Medical - moderate - high VTE Device Contraindication: Treatment Not Indicated VTE Drug Contraindication: N/A - Med Ordered
[2021-11-27] MEDS: Sennosides/Docusate Sodium TABLET 1 TAB PO (20:08)
[2021-11-27] MEDS: hydrOXYzine HCL 25 MG TABLET PO (20:08)
[2021-11-27] MEDS: Atorvastatin Calcium 20 MG TABLET PO (20:09)
[2021-11-28 02:54] VITALS: BP 141/63; PULSE 77; RESP 20; TEMP 36.4; O2SAT 99
[2021-11-28] MEDS: oxyCODONE HCl Immed Release 5 MG TABLET PO (03:04)
[2021-11-28] MEDS: Acetaminophen 325 MG TABLET 650 MG PO (03:05)
[2021-11-28] MEDS: Levothyroxine Sodium 88 MCG TABLET PO (06:22)
[2021-11-28 07:42] VITALS: BP 105/63; PULSE 69; RESP 18; TEMP 36.3; O2SAT 100
[2021-11-28] MEDS: Fluticasone/Vilanterol 200/25 BLST.W.DEV 1 PUFF INHALE (07:55)
[2021-11-28 07:56] VITALS: PULSE 89; RESP 18; O2SAT 95
[2021-11-28 09:48] VITALS: PULSE 89
[2021-11-28] MEDS: polyethylene glycoL 3350 17 GM POWD.PACK PO (10:46)
[2021-11-28] MEDS: Apixaban 2.5 MG TABLET PO (10:46)
[2021-11-28] MEDS: guaiFENesin LA 600 MG TAB.ER.12H PO (10:46)
[2021-11-28] MEDS: Multivitamin TABLET 1 TAB PO (10:46)
[2021-11-28] MEDS: Metoprolol Succinate ER 50 MG TAB.ER.24H PO (10:46)
[2021-11-28] MEDS: 0.9 % Sodium Chloride Flush 3 ML SYRINGE IVFLUSH (10:47)
[2021-11-28 11:06] VITALS: BP 100/54; PULSE 75; RESP 18; TEMP 36.3; O2SAT 94
--- NOTE | 2021-11-28 11:31 | MHC.CLN ---
F/U PO INTAKE 25-50% DIET RX: REGULAR-APPROPRIATE DISCUSSED WITH FAMILY- PT WITH PREVIOUS HX GI UPSET WHEN DRINKING ENSURE ENLIVE FAMILY REPORTS PT LIKES ENSURE CLEAR AND OBSERVED HALF EMPTY [employer] AT BEDSIDE SUPP PROVIDES 720KCALS, 24G PROTEIN CONTINUE TO MONITOR PO CLOSELY
--- NOTE | 2021-11-28 11:32 | MHC.CM.PN ---
Addendum entered by Kiesha Aguilar RN 11/28/21 11:33: FAMILY AGREEABLE TO PLAN AND NEW IMMM SIGNED. Original Note: PT MEDICALLY CLEARED FOR D/C TO STR, [facility] ABLE TO TAKE PT AT 4PM W/ACTION FOR BLS TRANSPORT.
--- NOTE | 2021-11-28 14:25 | PM.DS ---
DS: Providers Provider Date of Service: 11/28/21 Date of admission: 11/21/21 09:25 Primary care physician: Omari Salas MD Consults: 11/21/21 09:30 Consult to Cardiology Routine Consulting Provider: Anish Carter Reason for consultation: Pre-operative cardiovascular evaluation for hip fracture DS: Diagnosis Discharge Diagnosis (1) Closed intertrochanteric fracture: Status: Acute (2) COPD (chronic obstructive pulmonary disease): Status: Acute (3) Lung cancer: Status: Acute DS: Summary Hospital Course Hospital Course: Chief Complaint: Fall This is an 86 year old male with a PMH of PAF on Metoprolol/Eliquis, CAD s/p PCI x 2, 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 The patient reports that he was in his usual state of health and got up to go to the bathroom. He reports feeling dizzy after walking a short distance followed by a fall. He denies any loss of consciousness. He denies any chest pain or palpitations prior to the fall. He reports that he does have an assistive device for ambulation but that he has not required it recently. His imaging studies in the ED revealed a minimally displaced R intertrochanteric fx of the proximal R femur. His case was discussed with the Orthopedic team and he will now be admitted for further management. Hospital course: He presented with fall resulting in right hip fracture and because he is on eliquis for Afib this needed to be on hold for several days before surgery and surgery was done on 11/23 and is doing ok post operatively. He is restarted on Eliquis for DVT prophylaxis, pain control with oxycodone and to follow up with ortho on outpatient basis Consitpation--bowel regimen (to continue colace, miralax) Paroxsmal A. Fib--rate is controlled on metoprolol, to continue elquis Stage 4 AdenoCa of the Lung/chronic respiratory failure on 2L home o2 receiving immunotherapy [place] [facility] [place] the chest shows improvement of the mass outpatient f/u with oncology Chronic COPD continue his baseline inhalers HTN BP improved continue metoprolol hold RAJAN for now Hypothyroidism continue synthroid HLD continue statin Time Spent with Patient Time attestation: Total time spent providing and/or coordinating discharge services: Discharge coordination time: Greater than 30 minutes Quality: Safe Use of Opioids Does Pt have an Active Cancer Diagnosis on the Problem List?: Yes Opioid Measure Date for [facility] Report: 10/29/21 Opioid Measure Time for [facility] Report: 14:34 Quality: Stroke Does the patient have a stroke diagnosis?: No Physical Exam Vital Signs: Vital Signs: Last Vital Signs Temp 97.4 F 11/28/21 11:06 Pulse 75 11/28/21 11:06 Resp 18 11/28/21 11:06 BP 100/54 L 11/28/21 11:06 Pulse Ox 94 11/28/21 11:06 BMI result Body Mass Index 20.0 Const: Other: General: AO X 3, no acute distress Resp: CTA bilateral CVS: S1,S2,RRR GI: +BS, NT, no distention Skin: No rash, wound is dry clean and intact Neuro: motor grossly intact Psych: appropriate affect Discharge Plan Discharge Anticipated Discharge Date/Time: 11/28/21 14:15 Patient Disposition: Xfer SNF Discharge Diagnosis: Right hip nailing Referrals: [facility] [Outside] - 1 Day (SHORT TERM REHAB) Latricia Ramos PA-C [Physician [facility]] - 2 Weeks (12/06/21 3Pm with Latricia) Omari Salas MD [Primary Care Provider] - 1 Week Discharge Medications: New oxycodone 5 mg tablet 5 mg PO Q6H PRN (Reason: pain) Qty: 30 0RF Continued metoprolol succinate [Toprol XL] 25 mg tablet extended release 24 hr 50 mg PO DAILY 0RF levothyroxine 88 mcg tablet 1 tab PO DAILY 0RF lisinopril 20 mg tablet 20 mg PO DAILY 0RF atorvastatin 20 mg tablet 20 mg PO DAILY 0RF umeclidinium 62.5 mcg/actuation blister with device 1 inh inhalation DAILY 0RF fluticasone furoate-vilanterol 200-25 mcg/dose blister with device 1 ea inhalation DAILY 0RF latanoprost 0.005 % drops 1 drp ophthalmic (eye) DAILY 0RF multivitamin Tablet 1 tab PO DAILY 0RF coenzyme Q10 10 mg capsule 10 mg PO DAILY 0RF hydroxyzine pamoate 25 mg capsule 25 mg PO BEDTIME 0RF Eliquis 2.5 mg tablet 2.5 mg PO BID 0RF Discharge Orders: Discharge Order (Routine); Ordered 11/28/21 Ordered By: Ochoa Pereira Diet: regular diet Activity on Discharge: Use cane or walker Stand Alone Forms: Patient Portal Discharge page Care Plan Goals: Full recovery from hip fracture Health Concerns: hip fracture, lung cancer Plan of Treatment: Gait training, strengthening, ADLs Continue anticoagulant Keep dressing clean,dry and intact-no showering or tub baths Follow up with Orthopedics in 2 weeks Assessment: See above
--- NOTE | 2021-11-28 17:52 | PC.NURSE ---
Patient discharged to [facility], report given to facility. Velázquez port right chest deaccessed upon discharge. Patient tolerated well.
== END 2021-11-28 17:30 | disposition skilled nursing facility (03) | DRG 481 ==
LOC: HO.ED 07:32 → HO.EDOVER 09:51 → HO.IMC 11-22 15:56
PROVIDERS: Nurse Practitioner Acute Care; Orthopaedic Surgery; Physician Assistant Medical; Admitting Provider Family Medicine; Emergency Provider Student in an Organized Health Care Education/Training Program; PCP Family Medicine; Visit Provider Internal Medicine
PROC: 0QS636Z Reposition Right Upper Femur with Intramedullary Internal Fixation Device, Percutaneous Approach (ICD-10-PCS; principal; 2021-11-23 13:30)
DX: S72.141A Displaced intertrochanteric fracture of right femur, initial encounter for closed fracture (principal); C34.12 Malignant neoplasm of upper lobe, left bronchus or lung; J96.10 Chronic respiratory failure, unspecified whether with hypoxia or hypercapnia; Y92.002 Bathroom of unspecified non-institutional (private) residence as the place of occurrence of the external cause; W18.30XA Fall on same level, unspecified, initial encounter; I25.10 Atherosclerotic heart disease of native coronary artery without angina pectoris; J44.9 Chronic obstructive pulmonary disease, unspecified; I48.0 Paroxysmal atrial fibrillation; E03.9 Hypothyroidism, unspecified; K59.00 Constipation, unspecified; Z99.81 Dependence on supplemental oxygen; Z95.5 Presence of coronary angioplasty implant and graft; Z20.822 Contact with and (suspected) exposure to COVID-19; Z91.013 Allergy to seafood; Z79.01 Long term (current) use of anticoagulants; Z79.51 Long term (current) use of inhaled steroids; Z79.890 Hormone replacement therapy; Z79.899 Other long term (current) drug therapy
CPT/HCPCS: 36415; 70450; 71045; 71250; 72125; 74176; 80048; 80053; 81003; 83735; 85025; 85027; 85610; 86850; 86900; 86901; 87635; 93005; 94640; 96374; 97110; 97163; 97166; 97530; 99285; C1713; C1758; C1769; J0690; J2270; J3010

== ENCOUNTER 2021-12-06 11:57 | Outpatient (REF) | payer MEDICARE, SELFPAY | END 2021-12-06 11:58 | disposition home or self-care (01) | LOC: HO.HOSX 11:57 | PROVIDERS: Visit Provider Orthopaedic Surgery | DX: Z13.89 Encounter for screening for other disorder (principal) ==

== ENCOUNTER 2021-12-10 07:22 | Outpatient (REF) | payer MEDICARE, SELFPAY | END 2021-12-10 07:23 | disposition home or self-care (01) | LOC: HO.HOSX 07:22 | PROVIDERS: Visit Provider Orthopaedic Surgery | DX: Z13.89 Encounter for screening for other disorder (principal) ==